=== PATIENT | female | born 1950 | race Caucasian/White ===

== ENCOUNTER 2016-07-24 00:46 | Inpatient (IN) ==
--- NOTE | 2016-07-24 01:58 | Emergency Department Note ---
START Narrative - START START: I examined this patient and my medical decision-making was reviewed with the FILLING ROOM OPERATOR/PA/Advanced Practice Nurse/Resident Physician. I agree with the documented findings, disposition and treatment plan as described except to the extent set forth below. ED attending note: Patient seen with emergency medicine resident Dr. Galdamez. Please see a copy of his note for details of the H&P, evaluation, management and disposition of this patient. We independently had coms-[id number] contact with the patient Briefly: 65-year-old female resident of [facility] facility with dementia presents by EMS for concerns about pneumonia. Patient was Just finished antibiotics today [facility] facility personnel noted some hypoxia in the mid 70s using an oxygen concentrator they got her up to 80s. However after breathing treatment and supplemental medical oxygen EMS got her to light 90s. Vision is poor historian. She is afebrile with stable vital signs. Satisfactory O2 saturation on room air. Patient will repeat labs and chest x-ray here. Disposition pending. Patient stable.
[2016-07-24] MEDS ORDERED: Ipratropium/Albuterol Neb 3 ML IH ONE ×2 (02:47→03:52)
--- NOTE | 2016-07-24 02:48 | Emergency Department Note ---
Disposition Clinical Impression: COPD exacerbation Disposition: Admitted As Inpatient Condition: Good Time of Disposition: 03:03 General Adult HPI - General Chief complaint: ED Shortness of Breath/Dyspnea Stated complaint: short of breath Time Seen by Provider: 07/24/16 01:15 Source: patient, EMS Mode of arrival: EMS Limitations: physical limitation Nursing Notes Reviewed: Yes Vital Signs Reviewed: Yes - History of Present Illness HPI Narrative: 65-year-old female presents to the ER due to concern for pneumonia. Pt Subjective Complaint: Shortness of breath, concern for worsening pneumonia Onset (ago): Just CUT OFF SAW OPERATOR Radiation: non-radiation Pain Scale: 0 Improves with: other (Oxygen) Worsens with: nothing Associated symptoms: Reports: cough (White sputum), shortness of breath. Denies : chest pain, fever/chills, headaches, nausea/vomiting Treatments Prior to Arrival: other (Albuterol treatment) - Related Data Home Medications Medication Instructions Recorded Confirmed Albuterol Sulfate [Albuterol 2 puff IH Q6H PRN 10/11/15 10/11/15 Inhaler] Albuterol Sulfate [Ventolin Hfa] 2 puff IH Q6H PRN 10/11/15 10/11/15 Amlodipine [Norvasc] 5 mg PO DAILY 10/11/15 10/11/15 Aspirin 81 mg PO DAILY 10/11/15 10/11/15 Buspirone HCl [Buspar] 10 mg PO BID 10/11/15 10/11/15 Calcium Carbonate/Vitamin D3 1 each PO DAILY 10/11/15 10/11/15 [Calcium 500-Vit D3 200 Caplet] Carvedilol [Coreg] 6.25 mg PO BIDWM 10/11/15 10/11/15 Docusate [Colace] 200 mg PO QAM PRN 10/11/15 10/11/15 Ferrous Sulfate 324 mg PO DAILY 10/11/15 10/11/15 Gabapentin [Neurontin] 600 mg PO BID 10/11/15 10/11/15 Isosorbide MONOnitrate (24 HR) 60 mg PO QAM 10/11/15 10/11/15 [Imdur] Loperamide HCl [Imodium A-D] 2 mg PO PRN PRN 10/11/15 10/11/15 Losartan Potassium [Cozaar] 100 mg PO DAILY 10/11/15 10/11/15 Mirtazapine [Remeron] 15 mg PO 10/11/15 10/11/15 Multivitamin [One Daily Essential] 1 each PO [facility] 10/11/15 10/11/15 Omeprazole [PriLOSEC] 20 mg PO DAILY 10/11/15 10/11/15 Oxybutynin Chloride [Ditropan Xl] 10 mg PO DAILY 10/11/15 10/11/15 Paroxetine [Paxil] 20 mg PO 10/11/15 10/11/15 Potassium Chloride [Klor-Con] 20 meq PO BID 10/11/15 10/11/15 Promethazine [Phenergan] 25 mg PO PRN PRN 10/11/15 10/11/15 Roflumilast [Daliresp] 500 mcg PO DAILY 10/11/15 10/11/15 Sennosides [Evac-U-Gen] 8.6 mg PO PRN PRN 10/11/15 10/11/15 Simvastatin [Zocor] 10 mg PO 10/11/15 10/11/15 Tiotropium [Spiriva] 18 mcg IH [facility] 10/11/15 10/11/15 Previous Rx's Medication Instructions Recorded HYDROmorphone [Dilaudid] 2 mg PO Q4HR PRN #20 tablet 10/16/15 Hydrocodone/Acetaminophen [[place] 1 tab PO Q8H PRN #20 tablet 10/16/15 5-325 Tablet] Levofloxacin [Levaquin] 500 mg PO DAILY #10 tablet 10/16/15 PredniSONE 10 mg PO DAILY #60 tablet 10/16/15 TraMADol [Ultram] 50 mg PO Q6HR PRN #30 tablet 10/16/15 Allergies Allergy/AdvReac Type Severity Reaction Status Date / Time acetaminophen [From Vicodin] Allergy Hives Verified 07/24/16 00:48 codeine Allergy Nausea Verified 07/24/16 00:48 hydrocodone [From Vicodin] Allergy Hives Verified 07/24/16 00:48 Oxycodone [From Percocet] Allergy Gastrointestinal Verified 07/24/16 00:48 Upset propoxyphene Allergy Gastrointestinal Verified 07/24/16 00:48 [From Darvocet-N] Upset All systems ED: reviewed and negative except as stated. Constitutional: Denies: fever Cardiovascular: Denies: chest pain Respiratory: Reports: cough, dyspnea. Denies: wheezes Gastrointestinal: Denies: abdominal pain, nausea, vomiting Musculoskeletal: Denies: back pain, neck pain Integumentary: Denies: rash Past Medical History - Past Medical History Attestation: Yes The following information was validated with the patient. Source: patient, old records reviewed, nursing notes reviewed Medical history: Reports: aortic aneurysm, CHF, COPD, coronary artery disease, hypertension, osteoporosis, sudden cardiac , syncope, valvular heart disease, other Surgical history: Reports: no surgical history Psychiatric history: Reports: no psych history - Social History Smoking Status: Former smoker Smokeless Tobacco Status: No Alcohol use: Reports: none Drug use: Reports: none Physical Exam - General Limitations: physical limitation General appearance: alert, in no apparent distress - Head Head exam: atraumatic, normocephalic, normal inspection - Eye Eye exam: Present: normal appearance - ENT ENT exam: normal exam - Neck Neck exam: Present: normal inspection - Chest Chest inspection: Present: normal inspection - Respiratory Respiratory exam: Present: wheezes (Bilateral mild wheezing in all lung pizarro.) , prolonged expiratory phase. Absent: respiratory distress, accessory muscle use - Cardiovascular Cardiovascular exam: Present: regular rate, normal rhythm, normal heart sounds - Abdominal Exam Abdominal exam: Present: soft, Non-Tender. Absent: tenderness - Extremities Exam Extremities exam: Present: normal inspection - Expanded Lower Extremity Exam Hip/Pelvis exam: Present: normal inspection Upper leg exam: Present: normal inspection Knee exam: Present: normal inspection Lower leg exam: Present: normal inspection Ankle exam: Present: swelling (1+ pitting edema at the left ankle.) Foot/toe exam: Present: normal inspection - Neurological Exam Neurological exam: Present: alert - Psychiatric Psychiatric exam: Present: normal affect, normal mood - Skin Skin exam: Present: warm, dry, intact, normal color Course Course Narrative: 65-year-old female presents to the ER from a senior care facility with a chief complaint of concern for worsening pneumonia. EMS reports that at the facility the patient had an episode of hypoxia in the high 70s. This was corrected after applying supplemental O2. Patient was given a breathing treatment in route as well. Patient reports that she was recently admitted for a cerebellar aneurysm. At that time she was diagnosed with healthcare associated pneumonia and treated with vancomycin, cefepime and Levaquin as per EMS report. There was concern today that she had worsening pneumonia due to her hypoxia. Patient states she is on 2 L continuous. She has had a cough with white sputum production. She denies fevers, chest pain, diaphoresis, nausea, vomiting, diarrhea. No other complaints. Plan the patient is EKG and chest x-ray. Disposition pending. We will give a DuoNeb treatment here. - Reevaluation(s) Reevaluation #1: Discussed labs and imaging with the patient. Vital Signs Temperature 97.8 F 07/24/16 01:03 Pulse Rate 94 07/24/16 01:03 Respiratory Rate 16 07/24/16 01:03 Blood Pressure 164/90 07/24/16 01:03 O2 Sat by Pulse Oximetry 96 07/24/16 01:03 Temperature 97.8 F 07/24/16 01:03 Pulse Rate 110 07/24/16 04:30 Respiratory Rate 24 07/24/16 04:30 Blood Pressure 171/93 07/24/16 04:30 O2 Sat by Pulse Oximetry 97 07/24/16 04:30 Oxygen Delivery Oxygen Delivery Aerosol Mask Medical Decision Making - [facility] Narrative Medical decision making narrative: 65-year-old female presents to the ER for concern for worsening pneumonia and hypoxia. Her chest x-ray here is unremarkable. She is afebrile. She is requiring increased oxygen supplementation at 4 L currently. Her lab work is unremarkable. She continues to have wheezing with increased work of breathing. Patient will be admitted to the hospital for COPD exacerbation. - Lab Data Lab results reviewed: Yes I reviewed the patient's lab results. Result diagrams: 07/24/16 02:40 07/24/16 02:40 Lab Results 07/24/16 07/24/16 07/24/16 Range/Units 02:40 02:40 02:40 WBC 12.7 H (4.3-11.1) K/mcL RBC 4.61 (3.82-4.97) M/mcL Hgb 13.5 (11.5-15.4) g/dL Hct 43.8 (35.3-44.9) % MCV 95.0 (83.0-100.0) fL MCH 29.3 (28.0-33.3) pg MCHC 30.8 L (31.6-35.5) g/dL RDW 13.8 (11.5-14.5) % Plt Count 194 (140-400) K/mcL MPV 11.9 (9.4-12.4) fL Immature Gran % 0.8 (0-4) % Seg Neutrophils % 91.3 % Lymphocytes % 3.2 % Monocytes % 4.6 % Eosinophils % 0.0 % Basophils % 0.1 % Neutrophils # 11.6 H (1.6-8.9) K/mcL Lymphocytes # 0.4 L (0.6-4.6) K/mcL Monocytes # 0.6 (0.0-1.3) K/mcL Eosinophils # 0.0 (0.0-0.6) K/mcL Basophils # 0.0 (0.0-0.2) K/mcL Nucleated RBCs/100 WBC 0.2 H (0) /100 WBC Sodium 140 (136-145) mEq/L Potassium 4.3 (3.5-4.5) mEq/L Chloride 95 L (98-109) mEq/L Carbon Dioxide 36 H (19-29) mEq/L BUN 41 H (7-20) mg/dL Creatinine 0.75 (0.57-1.11) mg/dL Est GFR ( Amer) > 60 (> 60) Est GFR (Non-Af Amer) > 60 (> 60) BUN/Creatinine Ratio 55 H (6-26) Glucose 149 H (70-99) mg/dL Calculated Osmolality 303 H (280-300) Calcium 9.8 (8.6-10.8) mg/dL Troponin I 0.02 (0-0.03) ng/mL B-Natriuretic Peptide (0-100) pg/mL 07/24/16 Range/Units 02:40 WBC (4.3-11.1) K/mcL RBC (3.82-4.97) M/mcL Hgb (11.5-15.4) g/dL Hct (35.3-44.9) % MCV (83.0-100.0) fL MCH (28.0-33.3) pg MCHC (31.6-35.5) g/dL RDW (11.5-14.5) % Plt Count (140-400) K/mcL MPV (9.4-12.4) fL Immature Gran % (0-4) % Seg Neutrophils % % Lymphocytes % % Monocytes % % Eosinophils % % Basophils % % Neutrophils # (1.6-8.9) K/mcL Lymphocytes # (0.6-4.6) K/mcL Monocytes # (0.0-1.3) K/mcL Eosinophils # (0.0-0.6) K/mcL Basophils # (0.0-0.2) K/mcL Nucleated RBCs/100 WBC (0) /100 WBC Sodium (136-145) mEq/L Potassium (3.5-4.5) mEq/L Chloride (98-109) mEq/L Carbon Dioxide (19-29) mEq/L BUN (7-20) mg/dL Creatinine (0.57-1.11) mg/dL Est GFR ( Amer) (> 60) Est GFR (Non-Af Amer) (> 60) BUN/Creatinine Ratio (6-26) Glucose (70-99) mg/dL Calculated Osmolality (280-300) Calcium (8.6-10.8) mg/dL Troponin I (0-0.03) ng/mL B-Natriuretic Peptide 237 H (0-100) pg/mL - Radiology Data Radiology results reviewed: Yes I reviewed the patient's radiology results. Chest X-Ray 07/24/16 01:06 IMPRESSION: No acute process. D/ / Cecilia Young MD / Cecilia Young MD Interpreting Provider: Cecilia Young MD - EKG Data EKG #1 EKG attestation: Yes I reviewed and interpreted this EKG. EKG results narrative: EKG demonstrates sinus rhythm with PACs. Rate of 91 bpm. Normal axis. [place] interval 133 QRS duration [address] elevations or depressions. No acute ischemic findings. No significant changes from previous EKG dated . S.B.A.R. - S.B.A.R. Situation: Demographics, MOA Background: Presenting Complaint, Relevant PMH, Meds, & Allergies Assessment: Vital Signs, Course and respsone to treatment, Exam Concerns, Patient/Family Expectation, Pertinant Lab Results, Outstanding Labs Recommendation: Barrier(s) to disposition, Recommendation based on pending studies, treatments, or consults Jeniffer Report Given to: Dr. Rena Swift Repor Time: 05:22
[2016-07-24] MEDS ORDERED: methylPREDNISolone 125 MG/2 ML VIAL IVP ONE (03:52)
[2016-07-24 04:02] LABS: Basophils % 0.1 %; Hematocrit 43.8 % (35.3-44.9); Hemoglobin 13.5 g/dL (11.5-15.4); Immature Granulocytes % 0.8 % (0-4); Lymphocytes # 0.4 K/mcL (0.6-4.6); Lymphocytes % 3.2 %; Mean Corpuscular HGB Conc 30.8 g/dL (31.6-35.5); Mean Corpuscular Hemoglobin 29.3 pg (28.0-33.3); Mean Platelet Volume 11.9 fL (9.4-12.4); Monocytes # 0.6 K/mcL (0.0-1.3); Monocytes % 4.6 %; Neutrophils # 11.6 K/mcL (1.6-8.9); Nucleated Red Blood Cells 0.2 /100 WBC (0); Platelet Count 194 K/mcL (140-400); Red Blood Count 4.61 M/mcL (3.82-4.97); Red Cell Distribution Width 13.8 % (11.5-14.5); Segmented Neutrophils % 91.3 %
[2016-07-24 04:09] LABS: BUN/Creatinine Ratio 55 (6-26); Blood Urea Nitrogen 41 mg/dL (7-20); Calcium 9.8 mg/dL (8.6-10.8); Carbon Dioxide 36 mEq/L (19-29); Chloride 95 mEq/L (98-109); Glucose 149 mg/dL (70-99); Osmolality,Calculated 303 (280-300); Potassium 4.3 mEq/L (3.5-4.5); Sodium 140 mEq/L (136-145); eGFR For African Americans > 60 (> 60); eGFR For Non-African Americans > 60 (> 60)
[2016-07-24] MEDS ORDERED: Naloxone 0.4 MG/ML INJ IVP PRN (05:49)
[2016-07-24] MEDS ORDERED: Ibuprofen 400 MG TABLET PO PRN (05:49)
[2016-07-24] MEDS ORDERED: Albuterol 2.5 MG/3 ML NEBULIZER IH PRN ×2 (05:49→11:41)
[2016-07-24] MEDS ORDERED: *HR* Morphine 2 MG/ML SYRINGE IVP PRN (05:49)
[2016-07-24] MEDS ORDERED: Ondansetron 4 MG/2 ML VIAL IVP PRN ×2 (05:49→11:41)
[2016-07-24] MEDS ORDERED: 0.9 % Sodium Chloride 1,000 ML IVC SCH (06:00)
--- NOTE | 2016-07-24 06:03 | Internal Med History&Physical ---
Date of Encounter: 07/24/16 Time of Encounter: 05:57 Assessment and Plan (1) Acute and chronic respiratory failure with hypoxia Current visit: Yes Status: Acute 1. I requested a STAT ABG and placement on BiPap in ER. 2. Will monitor closely on BiPap and, if respiratory status declines, patient will likely need ETT and mechanical ventilation. 3. Aggressive IV steroids, aerosols, oxygen/BiPap support. 4. Will treat with Levaquin empirically. Pt just finished Vancomycin and Zosyn. 5. Check Influenza PCR. 6. Will draw blood cultures -- one peripheral and one from PICC. (2) CAD (coronary artery disease) of artery bypass graft Current visit: No Status: Chronic 1. Will trend troponins and EKG's. 2. No active angina. 3. Resume home meds as appropriate once verified. Qualifiers: [place] vs. transplanted heart: [place] heart Associated angina: without angina Qualified Code(s): I25.810 - Atherosclerosis of coronary artery bypass graft(s) without angina pectoris (3) Hypertension Current visit: No Status: Chronic 1. Continue home meds as appropriate. 2. Monitor BP and adjust accordingly. Qualifiers: Hypertension type: essential hypertension Qualified Code(s): I10 - Essential (primary) hypertension (4) DVT prophylaxis Current visit: Yes Status: Acute 1. Heparin SQ. Internal Medicine - H&P: HPI Chief complaint: SOB; cough; fever Admitted From: Emergency Dept Plans for Post Hospital Care: Transfer Shelter Facility History of present illness: Ms. Dubon is a 65 year old female who presented to the ER this morning with complaints of cough, profound shortness of breath, and fevers. She just finished antibiotics yesterday for healthcare associated pneumonia. She has an indwelling PICC line in her right arm, and she tells me she was being treated at her nursing facility. She states she was coughing, wheezing, and short breath all week but today, suddenly, she had profound shortness of breath, severe wheezing, and subjective fevers. She came to the ER and was treated conservatively with aerosols and steroids and admitted to hospitalist service. Upon my assessment of the patient in the ER, she is having significant conversational dyspnea and is pursed-lip breathing. She has profound shortness of breath and is struggling to breathe. Based upon her clinical respiratory deterioration, I requested the ER obtain an ABG and start her on BiPAP right away. Patient states she has been having some subjective fevers and has had multiple ill contacts at her nursing facility. She denies any vomiting or diarrhea. Appetite and fluid intake have been diminished. She denies chest pain, but she has had significant wheezing, coughing, and shortness of breath. Patient states she has severe COPD and has required intubation and mechanical ventilation several times the past for her COPD flareups. Past Med Surg Social Fam HX - Past Medical History Attestation: Yes The following information was validated with the patient. Source: old records reviewed, nursing notes reviewed (from [facility]) Medical history: aortic aneurysm, CHF, COPD, coronary artery disease, hypertension, osteoporosis, sudden cardiac , syncope, valvular heart disease Psychiatric history: no psych history - Past Surgical History Surgical History: coronary bypass (CABG) - Social History Smoking Status: Former smoker Smokeless Tobacco Status: No Alcohol use: none Drug use: none Current living situation: [facility] Recent Out of Country Travel Within the Last 8 Weeks: No - Family History Mother Living Status: Hx Family Cardiac Disorders: No Hx Family Respiratory Disorders: No Hx Family Cancer: No Hx Family GI Disorders: No Hx Family Neuromuscular Disorders: No Hx Family Neurologic Disorders: Yes (dementia) Hx Family HEENT Disorders: No Hx Family Autoimmune Disorders: No Internal Medicine - H&P: Meds Albuterol Sulfate [Albuterol Inhaler] 2 puff IH Q6H PRN 10/11/15 [History] Albuterol Sulfate [Ventolin Hfa] 2 puff IH Q6H PRN 10/11/15 [History] Amlodipine [Norvasc] 5 mg PO DAILY 10/11/15 [History] Aspirin 81 mg PO DAILY 10/11/15 [History] Buspirone HCl [Buspar] 10 mg PO BID 10/11/15 [History] Calcium Carbonate/Vitamin D3 [Calcium 500-Vit D3 200 Caplet] 1 each PO DAILY [History] Carvedilol [Coreg] 6.25 mg PO BIDWM 10/11/15 [History] Docusate [Colace] 200 mg PO QAM PRN 10/11/15 [History] Ferrous Sulfate 324 mg PO DAILY 10/11/15 [History] Gabapentin [Neurontin] 600 mg PO BID 10/11/15 [History] Isosorbide MONOnitrate (24 HR) [Imdur] 60 mg PO QAM 10/11/15 [History] Loperamide HCl [Imodium A-D] 2 mg PO PRN PRN 10/11/15 [History] Losartan Potassium [Cozaar] 100 mg PO DAILY 10/11/15 [History] Mirtazapine [Remeron] 15 mg PO HS 10/11/15 [History] Multivitamin [One Daily Essential] 1 each PO [facility] 10/11/15 [History] Omeprazole [PriLOSEC] 20 mg PO DAILY 10/11/15 [History] Oxybutynin Chloride [Ditropan Xl] 10 mg PO DAILY 10/11/15 [History] Paroxetine [Paxil] 20 mg PO 10/11/15 [History] Potassium Chloride [Klor-Con] 20 meq PO BID 10/11/15 [History] Promethazine [Phenergan] 25 mg PO PRN PRN 10/11/15 [History] Roflumilast [Daliresp] 500 mcg PO DAILY 10/11/15 [History] Sennosides [Evac-U-Gen] 8.6 mg PO PRN PRN 10/11/15 [History] Simvastatin [Zocor] 10 mg PO HS 10/11/15 [History] Tiotropium [Spiriva] 18 mcg IH [facility] 10/11/15 [History] HYDROmorphone [Dilaudid] 2 mg PO Q4HR PRN #20 tablet 10/16/15 [Rx] Hydrocodone/Acetaminophen [[place] 5-325 Tablet] 1 tab PO Q8H PRN #20 tablet 10/15 [Rx] Levofloxacin [Levaquin] 500 mg PO DAILY #10 tablet 10/16/15 [Rx] PredniSONE 10 mg PO DAILY #60 tablet 10/16/15 [Rx] TraMADol [Ultram] 50 mg PO Q6HR PRN #30 tablet 10/16/15 [Rx] Allergies acetaminophen [From Vicodin] Allergy (Verified 07/24/16 00:48) Hives codeine Allergy (Verified 07/24/16 00:48) Nausea hydrocodone [From Vicodin] Allergy (Verified 07/24/16 00:48) Hives Oxycodone [From Percocet] Allergy (Verified 07/24/16 00:48) Gastrointestinal Upset propoxyphene [From Darvocet-N] Allergy (Verified 07/24/16 00:48) Gastrointestinal Upset - Constitutional Constitutional: fever(s), no chills, no night sweats - EENT Eyes: no blurry vision, no change in vision Ears: no ear pain, no tinnitus Nose, mouth and throat: nasal congestion, sinus pressure, no sore throat - Cardiovascular Cardiovascular ROS IM: dyspnea, dyspnea on exertion, palpitations, no chest pain , no edema, no lightheadedness, no orthopnea - Respiratory Respiratory: cough, dyspnea, dyspnea on exertion, wheezing, chest congestion, no hemoptysis, no excessive phlegm production - Gastrointestinal Gastrointestinal: other (+ appetite loss and depressed fluid intake), no abdominal pain, no diarrhea, no hematemesis, no hematochezia, no nausea, no vomiting - Genitourinary Genitourinary: no dysuria, no flank pain, no hematuria - Musculoskeletal Musculoskeletal ROS IM: no arthralgias, no back pain, no myalgias - Integumentary Integumentary IM: no rash, no jaundice - Neurological Neurological ROS: no dizziness, no focal weakness, no headache(s) - Psychiatric Psychiatric: anxiety, no depression - Endocrine Endocrine IM: no polydipsia, no polyuria - Hematologic/Lymphatic Hematologic/Lymphatic: easy bruising, no lymphadenopathy - Allergic/Immunologic Allergic/Immunologic: wheezing, no GI upset with certain foods - Constitutional Vitals: Temp Pulse Resp BP Pulse Ox 97.8 F 110 24 158/126 97 07/24/16 01:03 07/24/16 04:30 07/24/16 05:41 07/24/16 05:41 07/24/16 04:30 General appearance: Present: cooperative, disheveled, A&O X 2, pleasant, severe distress (respiratory) Exam: pursed lip breathing; conversational dyspnea; accessory muscle use for breathing - Head Head exam: Present: atraumatic, normal inspection - Expanded Head Exam Head exam expanded: Absent: abrasion, contusion, general tenderness - Eye Eye exam: Present: EOMI, normal appearance, PERRL. Absent: scleral icterus Pupils: Present: normal accommodation - ENT ENT exam: Present: mucous membranes dry, normal oropharynx Additional comments: + thrush - Neck Neck exam general surgery: Present: full ROM, supple. Absent: lymphadenopathy, nuchal rigidity, thyromegaly - Respiratory Respiratory exam: Present: accessory muscle use, decreased breath sounds, respiratory distress, wheezes, tachypnea. Absent: chest wall tenderness, rales , stridor - Cardiovascular Cardiovascular exam: Present: +S1, +S2, tachycardia. Absent: diastolic murmur, JVD, systolic murmur - GI/Abdominal GI/Abdominal exam: Present: soft. Absent: hepatomegaly, normal bowel sounds, splenomegaly - Extremities Exam Extremities exam: Present: warm. Absent: calf tenderness, joint swelling, pedal edema, tenderness - Back Exam Back exam: Present: normal inspection. Absent: CVA tenderness (L), CVA tenderness (R) - Neurological Exam Neurological exam: Present: alert, CN II-XII intact, oriented X3, no focal deficits - Psychiatric Psychiatric exam: Present: anxious - Skin Skin exam: Present: dry, warm Internal Med - H&P Results - Labs CBC & Chem 7: 07/24/16 02:40 07/24/16 02:40 - EKG Data -: EKG Interpreted by Myself EKG shows normal: sinus rhythm Rate: tachycardia - EKG Data Prior EKG available for review: no EKG comments: 07/24/16 06:11 Sinus tachycardia with PAC's - Diagnostic Studies Chest x-ray Status: image reviewed by me (negative)
[2016-07-24 06:10] LABS: ABG Base Excess 11.2 mEq/L (-2.0 to 3.0); ABG HCO3 41.8 mEQ/L (21-27); ABG Oxygen Saturation 87 % (95-98); ABG PO2 58 mmHg (85-104); ABG TCO2 44.4 mEq/L (20-26); Blood Gas FiO2 34 %
[2016-07-24 06:11] LABS: ABG PCO2 85 mmHg (35-45)
[2016-07-24] MEDS ORDERED: *HR* Heparin 5,000 UNIT/ML VIAL SQ SCH (07:00)
[2016-07-24] MEDS ORDERED: Ipratropium/Albuterol Neb 3 ML IH SCH (08:00)
[2016-07-24 08:17] LABS: ABG Base Excess 10.8 mEq/L (-2.0 to 3.0); ABG HCO3 41.4 mEQ/L (21-27); ABG Oxygen Saturation 96 % (95-98); ABG PH 7.29 pH Units (7.32-7.45); ABG PO2 92 mmHg (85-104); Blood Gas FiO2 50 %
[2016-07-24 08:19] LABS: ABG PCO2 86 mmHg (35-45)
[2016-07-24] MEDS ORDERED: Levofloxacin 750 MG/150 ML 750 MG/150 ML BAG IVPB SCH (09:00)
[2016-07-24] MEDS ORDERED: Aspirin 81 MG TAB.CHEW PO SCH (09:00)
[2016-07-24] MEDS ORDERED: methylPREDNISolone 125 MG/2 ML VIAL IVP SCH (10:00)
[2016-07-24 10:11] LABS: ABG Base Excess 13.7 mEq/L (-2.0 to 3.0); ABG HCO3 44.7 mEQ/L (21-27); ABG Oxygen Saturation 93 % (95-98); ABG PH 7.29 pH Units (7.32-7.45); ABG PO2 75 mmHg (85-104); ABG TCO2 47.6 mEq/L (20-26)
[2016-07-24 10:13] LABS: ABG PCO2 93 mmHg (35-45)
[2016-07-24 10:14] LABS: Blood Gas FiO2 50 %
[2016-07-24] MEDS ORDERED: Budesonide/Formoterol 160/4.5 MDI IH SCH (10:15)
[2016-07-24] MEDS ORDERED: Vancomycin 1,000 MG in D5% in Water 250 ML IVPB SCH ×2 (11:00→11:41)
[2016-07-24] MEDS ORDERED: Piperacillin/Tazobactam 3.375 GM in D5% in Water (Mini-Bag+) 100 ML IVPB SCH (11:00)
[2016-07-24] MEDS ORDERED: Propofol 500 MG/50 ML INFUS..BTL ONE (11:32)
[2016-07-24] MEDS ORDERED: Oseltamivir Phosphate 30 MG CAPSULE PO SCH (12:15)
[2016-07-24] MEDS: Vancomycin 1,000 MG in D5% in Water 250 ML IVPB SCH (12:22)
[2016-07-24] MEDS ORDERED: *HR* Midazolam HCl 5 MG/5 ML VIAL IVP ONE (12:25)
[2016-07-24] MEDS ORDERED: *HR* Midazolam HCl 2 MG/2 ML VIAL IV ONE (12:25)
[2016-07-24] MEDS ORDERED: *HR* Etomidate 40 MG/20 ML VIAL IVP ONE (12:25)
[2016-07-24] MEDS: Ipratropium/Albuterol Neb 3 ML IH SCH ×3 (12:54→21:01)
[2016-07-24 13:25] LABS: 2009 H1N1 PCR NOT DETECTED (Not Detect); Influenza A PCR Negative (Negative); Influenza B PCR Negative (Negative)
[2016-07-24 14:01] LABS: ABG Base Excess 15.4 mEq/L (-2.0 to 3.0); ABG HCO3 44.5 mEQ/L (21-27); ABG Oxygen Saturation 96 % (95-98); ABG PH 7.37 pH Units (7.32-7.45); ABG PO2 82 mmHg (85-104); ABG TCO2 46.9 mEq/L (20-26)
[2016-07-24 14:03] LABS: ABG PCO2 77 mmHg (35-45); Blood Gas FiO2 45 %
[2016-07-24] MEDS: Piperacillin/Tazobactam 3.375 GM in D5% in Water (Mini-Bag+) 100 ML IVPB SCH ×2 (14:32→19:54)
--- NOTE | 2016-07-24 14:34 | Pulmonology Consult Note ---
<Burt Mota - Last Filed: 07/24/16 17:15> Date of Encounter: 07/24/16 Time of Encounter: 11:50 Assessment and Plan (1) Acute exacerbation of chronic obstructive airways disease Current Visit: No Status: Acute 65-year-old female with history of severe COPD, history of requiring mechanical ventilation presented to [facility] from the custodial after completing antibiotics for healthcare associated pneumonia. Patient had a sudden onset of coughing, wheezing and shortness of breath was treated with steroids and respiratory therapy in the emergency apparent. With failure of improvement of breathing she was placed on BiPAP and admitted to the general medical floor. While on BiPAP her PCO2 continued to rise from 85-93, The patient became more lethargic and with concerns for decompensation she was transferred to the ICU. After arrival in the ICU her BiPAP settings were adjusted to average volume assured pressure support. Repeat blood gas demonstrated improvement with a pH of 7.37, PCO2 77, PO2 82, bicarbonate 44.5. Chest x-ray results reviewed and compared to previous imaging studies without any acute changes. Plan: - Continue ICU monitoring and current BiPAP settings, if the patient continues to decompensation may require endotracheal intubation. - Continue BiPAP wean as tolerated. - Maintain oxygen saturation is between 88 and 93% - With recent treatment for HCAP Currence antibiotics include vancomycin, Zosyn and Levaquin providing broad coverage. - Nasal MRSA swab negative, influenza screen negative - Continue scheduled DuoNeb treatments, Symbicort, when necessary albuterol nebulizer, Solu-Medrol 80 mg IV every 6 hours (2) CAD (coronary artery disease) of artery bypass graft Current Visit: No Status: Chronic Patient has a history of coronary artery disease with previous history of CABG, current home medications include simvastatin 10 mg by mouth at bedtime. Plan: - Restart her home dose simvastatin 10 mg at bedtime. - History of diastolic heart failure plan to restart beta scott and ARB, will hold amlodipine at this time. - Restart aspirin. Qualifiers: [place] vs. transplanted heart: [place] heart Associated angina: without angina Qualified Code(s): I25.810 - Atherosclerosis of coronary artery bypass graft(s) without angina pectoris (3) Hypertension Current Visit: No Status: Chronic Patient has a history of hypertension and is treated with beta scott, ARB and calcium channel scott at home, antihypertensives have been held since admission, with labile blood pressures. Plan: - We will restart losartan and Coreg - Hold amlodipine at this time. - Continue to monitor blood pressures per protocol. Qualifiers: Hypertension type: essential hypertension Qualified Code(s): I10 - Essential (primary) hypertension (4) DVT prophylaxis Current Visit: Yes Status: Acute Subcutaneous heparin at 5000 units every 8 hours. History of Present Illness Consult date: 07/24/16 Requesting physician: Parker Dodson Chief complaint: Acute Respiratory Failure History of present illness: 65-year-old female with significant history of severe COPD, diastolic heart failure, coronary artery disease, CABG, hypertension, osteoporosis, valvular heart disease, aortic aneurysm, was admitted from the emergency department on with increased shortness of breath and a fever. She had just finished IV antibiotics for healthcare associated pneumonia at a custodial and has an indwelling PICC line. She had sudden onset of coughing wheezing and shortness of breath and subjective fevers. She presented to the emergency department she is treating conservatively with bronchodilators and steroids was admitted to the hospital service. She required BiPAP placement to maintain her oxygen saturations greater than 88%. She was admitted to the general medical floor and blood gases were drawn. Original PCO2 is 85 and while on BiPAP and continued to worsen to 93. The patient became lethargic and hard to arouse and was transferred to the ICU for potential intubation. Upon arrival to the ICU she was evaluated and BiPAP settings were adjusted. Follow-up ABG demonstrated a PCO2 of 77 with an improving pH. The patient is coherent, interactive and tolerating the BiPAP at this time. She denies any fevers chills, vision changes , chest pains, dyspnea, chest pressure, abdominal pain, constipation, extremity pain or discomfort. Past Med Surg Social Fam HX - Past Medical History Medical history: aortic aneurysm, CHF, COPD, coronary artery disease, hypertension, osteoporosis, sudden cardiac , syncope, valvular heart disease Psychiatric history: no psych history - Past Surgical History Surgical History: coronary bypass (CABG) - Social History Smoking Status: Former smoker Smokeless Tobacco Status: No Alcohol use: none Drug use: none - Family History Mother Living Status: Hx Family Cardiac Disorders: No Hx Family Respiratory Disorders: No Hx Family Cancer: No Hx Family GI Disorders: No Hx Family Neuromuscular Disorders: No Hx Family Neurologic Disorders: Yes (dementia) Hx Family HEENT Disorders: No Hx Family Autoimmune Disorders: No Medications and Allergies Amlodipine [Norvasc] 5 mg PO DAILY 10/11/15 [History] Aspirin 81 mg PO DAILY 10/11/15 [History] Buspirone HCl [Buspar] 10 mg PO BID 10/11/15 [History] Carvedilol [Coreg] 6.25 mg PO BIDWM 10/11/15 [History] Gabapentin [Neurontin] 600 mg PO TID 10/11/15 [History] Isosorbide MONOnitrate (24 HR) [Imdur] 60 mg PO QAM 10/11/15 [History] Losartan Potassium [Cozaar] 100 mg PO DAILY 10/11/15 [History] Multivitamin [One Daily Essential] 1 each PO QAM 10/11/15 [History] Oxybutynin Chloride [Ditropan Xl] 10 mg PO DAILY 10/11/15 [History] Paroxetine [Paxil] 20 mg PO HS 10/11/15 [History] Roflumilast [Daliresp] 500 mcg PO DAILY 10/11/15 [History] Simvastatin [Zocor] 10 mg PO HS 10/11/15 [History] Tiotropium [Spiriva] 18 mcg IH BID 10/11/15 [History] Benzonatate 100 mg PO TID 07/24/16 [History] Calcium Carbonate/Vitamin D3 [Oyster [place] Calcium-Vit D Tab] 1 each PO DAILY [History] Docusate Sodium [Dok] 200 mg PO DAILY PRN 07/24/16 [History] Ferrous Sulfate [Iron] 325 mg PO DAILY 07/24/16 [History] Fluticasone/Salmeterol [Advair Hfa 230-21 Mcg Inhaler] 2 puff IH BID 07/24/16 [ History] Guaifenesin [Mucinex] 600 mg PO BID 07/24/16 [History] Ipratropium/Albuterol Neb [Duoneb] 3 ml IH Q4H 07/24/16 [History] Levalbuterol [Xopenex INH] 2 puff IH QID PRN 07/24/16 [History] Loperamide [Imodium] 2 mg PO DAILY PRN 07/24/16 [History] MethylPREDNISolone [Solu-MEDROL] 125 mg IV DAILY 07/24/16 [History] Omeprazole [PriLOSEC] 20 mg PO DAILY 07/24/16 [History] Potassium Chloride [K-Tab ER] 20 meq PO BID 07/24/16 [History] Sennosides [Senna] 8.6 mg PO DAILY PRN 07/24/16 [History] Allergies acetaminophen [From Vicodin] Allergy (Verified 07/24/16 10:16) Hives codeine Allergy (Verified 07/24/16 10:16) Nausea hydrocodone [From Vicodin] Allergy (Verified 07/24/16 10:16) Hives Oxycodone [From Percocet] Allergy (Verified 07/24/16 10:16) Gastrointestinal Upset propoxyphene [From Darvocet-N] Allergy (Verified 07/24/16 10:16) Gastrointestinal Upset All Systems: A 10-system review of systems was performed and is negative for pertinent findings except as documented above in the HPI. Physical Examination Vital Signs: Vital Signs, Last 4 Hours Resp Pulse Ox 07/24/16 12:55 21 95 General appearance: no acute distress, alert Eyes: nonicteric ENT: oropharynx moist Neck: supple, no lymphadenopathy, no JVD Effort: mildly labored Inspection: normal Auscultation: bilateral: wheezes Cardiovascular: other (Tachycardia) Gastrointestinal: normoactive bowel sounds, soft, non-tender, non-distended Integumentary: normal Extremities: no cyanosis, no edema, no clubbing, pulses normal Musculoskeletal: no deformities pupils equal and round, CN II-XII normal mood appropriate, affect normal Results - Laboratory Findings CBC and BMP: 07/24/16 02:40 07/24/16 02:40 ABG ABG pH 7.37 pH Units (7.32-7.45) 07/24/16 13:47 ABG pCO2 77 mmHg (35-45) H* 07/24/16 13:47 ABG pO2 82 mmHg (85-104) L 07/24/16 13:47 ABG O2 Saturation 96 % (95-98) 07/24/16 13:47 Abnormal lab findings: Abnormal lab results WBC 12.7 K/mcL (4.3-11.1) H 07/24/16 02:40 MCHC 30.8 g/dL (31.6-35.5) L 07/24/16 02:40 Neutrophils # 11.6 K/mcL (1.6-8.9) H 07/24/16 02:40 Lymphocytes # 0.4 K/mcL (0.6-4.6) L 07/24/16 02:40 Nucleated RBCs/100 WBC 0.2 /100 WBC (0) H 07/24/16 02:40 ABG pCO2 77 mmHg (35-45) H* 07/24/16 13:47 ABG pO2 82 mmHg (85-104) L 07/24/16 13:47 ABG HCO3 44.5 mEQ/L (21-27) H 07/24/16 13:47 ABG Total CO2 46.9 mEq/L (20-26) H 07/24/16 13:47 ABG Base Excess 15.4 mEq/L (-2.0 to 3.0) H 07/24/16 13:47 Chloride 95 mEq/L (98-109) L 07/24/16 02:40 Carbon Dioxide 36 mEq/L (19-29) H 07/24/16 02:40 BUN 41 mg/dL (7-20) H 07/24/16 02:40 BUN/Creatinine Ratio 55 (6-26) H 07/24/16 02:40 Glucose 149 mg/dL (70-99) H 07/24/16 02:40 POC Glucose 176 (58-89) H 07/24/16 11:37 Calculated Osmolality 303 (280-300) H 07/24/16 02:40 B-Natriuretic Peptide 237 pg/mL (0-100) H 07/24/16 02:40 - Clinical Findings Intake & Output: Intake & Output 07/23/16 07/24/16 07/24/16 23:59 07:59 15:59 Intake Total 0 / 0 Balance 0 / 0 Weight 60.1 kg 60.1 kg Consult Discharge Plan - Plan Referrals: [facility] [place],Loc Stafford MD [Non-Partnered Physician] - 07/31/16 2:15 pm <Suzi Pinedo - Last Filed: 07/24/16 20:15> Date of Encounter: 07/24/16 All Systems: A 10-system review of systems was performed and is negative for pertinent findings except as documented above in the HPI. Physical Examination Vital Signs: Vital Signs, Last 4 Hours Pulse Resp BP Pulse Ox 07/24/16 18:00 81 15 140/98 97 07/24/16 17:00 93 22 162/93 96 Results - Laboratory Findings CBC and BMP: 07/24/16 02:40 07/24/16 02:40 ABG ABG pH 7.37 pH Units (7.32-7.45) 07/24/16 13:47 ABG pCO2 77 mmHg (35-45) H* 07/24/16 13:47 ABG pO2 82 mmHg (85-104) L 07/24/16 13:47 ABG O2 Saturation 96 % (95-98) 07/24/16 13:47 Abnormal lab findings: Abnormal lab results WBC 12.7 K/mcL (4.3-11.1) H 07/24/16 02:40 MCHC 30.8 g/dL (31.6-35.5) L 07/24/16 02:40 Neutrophils # 11.6 K/mcL (1.6-8.9) H 07/24/16 02:40 Lymphocytes # 0.4 K/mcL (0.6-4.6) L 07/24/16 02:40 Nucleated RBCs/100 WBC 0.2 /100 WBC (0) H 07/24/16 02:40 ABG pCO2 77 mmHg (35-45) H* 07/24/16 13:47 ABG pO2 82 mmHg (85-104) L 07/24/16 13:47 ABG HCO3 44.5 mEQ/L (21-27) H 07/24/16 13:47 ABG Total CO2 46.9 mEq/L (20-26) H 07/24/16 13:47 ABG Base Excess 15.4 mEq/L (-2.0 to 3.0) H 07/24/16 13:47 Chloride 95 mEq/L (98-109) L 07/24/16 02:40 Carbon Dioxide 36 mEq/L (19-29) H 07/24/16 02:40 BUN 41 mg/dL (7-20) H 07/24/16 02:40 BUN/Creatinine Ratio 55 (6-26) H 07/24/16 02:40 Glucose 149 mg/dL (70-99) H 07/24/16 02:40 POC Glucose 136 (58-89) H 07/24/16 15:10 Calculated Osmolality 303 (280-300) H 07/24/16 02:40 B-Natriuretic Peptide 237 pg/mL (0-100) H 07/24/16 02:40 - Clinical Findings Intake & Output: Intake & Output 07/24/16 07/24/16 07/24/16 07:59 15:59 23:59 Intake Total 250 / 250 715 / 715 Output Total 275 / 275 Balance 250 / 250 440 / 440 Weight 60.1 kg 62 kg - Attending Attestation I examined this patient and my medical decision-making was reviewed with the PARACHUTE SUPERVISOR/PA/Advanced Practice Nurse/Resident Physician. I agree with the documented findings, disposition and treatment plan as described except to the extent set forth below. Patient seen and examined. Labs, radiology, chart personally reviewed. Agree with resident's history and physical, assessment, plan with following comments: IPHONE DEVELOPER: Patient follows commands, Pulmonary: Patient ventilation and oxygenation were worsening and resident called me to assess patient. Patient was transferred to ICU for possible intubation, however I changed her BiPAP setting to AVAPS and her condition has improved after that and with this NIV mode prevented invasive intubation and hoping she will continue to improve. Cardiovascular: stable GI: Nutrition per dietary and GI prophylaxis per routine Heme: DVT prophylaxis per routine ID: Continue antibiotics and plan to de-escalation Renal; urine out put and renal funtion reviewed Endorcine: blood glucose is monitored Lines: all lines checked and no evidence of infections Skin: skin care to prevent pressure ulcers per nursing routine care I spent 35 min of Critical Care time with this patient. It involved decision making of high complexity to assess, manipulate, and support vital organ system failure and/or to prevent further life threatening deterioration of the patient' s condition. The time involved in the performance of separately reportable procedures was not counted toward critical care time.
--- NOTE | 2016-07-24 15:52 | Electrocardiograph Report ---
[address] [address] Test Date: 2016-07-24 Pat Name: Ana Dubon Department: 102 Room: 12 Gender: F Production Manager: : 1950 Requested By: Mikel Hardin Order Number: [id number] Reading MD: Loc Membreno Measurements Intervals [place] Rate: 91 P: -34 RI: 133 QRS: 59 QRSD: 83 T: 48 QT: 319 QTc: 368 Interpretive Statements SINUS RHYTHM WITH OCCASIONAL SUPRAVENTRICULAR PREMATURE COMPLEXES BASELINE ARTIFACT Electronically Signed On 07-24-2016 15:50:10 EST by Loc Membreno
[2016-07-24] MEDS: methylPREDNISolone 125 MG/2 ML VIAL IVP SCH ×2 (16:20→22:23)
[2016-07-24] MEDS: *HR* Heparin 5,000 UNIT/ML VIAL SQ SCH ×2 (16:21→22:23)
--- NOTE | 2016-07-24 16:46 | Event Note ---
<Parker Dodson - Last Filed: 07/24/16 16:38> Date of Encounter: 07/24/16 Time of Encounter: 08:00 Patient seen and evaluated at bedside. She complained of shortness of breath. On physical exam the patient had significant wheezing and rhonchi bilaterally. ABG was performed which showed an acute on chronic respiratory acidosis with a pH of 7.29 and a PCO2 of 86. The patient was placed on BiPAP 12/6 and after approximately an hour and repeat ABG was essentially unchanged. BiPAP settings were then changed to a 18/6 and the patient was transferred to the ICU. Case was discussed with critical care team consult was placed for pulmonology/ critical care. <Harvey Baptiste - Last Filed: 07/24/16 16:51> Date of Encounter: 07/24/16 Pt admitted early for acute hypercarbic resp failure. Continues to decline. Transferred to ICU and critical care consulted.
[2016-07-24] MEDS: *HR* Metoprolol 5 MG/5 ML VIAL IVP SCH (18:09)
[2016-07-24] MEDS: *HR* Morphine 2 MG/ML SYRINGE IVP PRN ×2 (19:55→22:35)
[2016-07-24] MEDS: Budesonide/Formoterol 160/4.5 MDI IH SCH (21:02)
[2016-07-24] MEDS ORDERED: Lacri-Lube 3.5 GM TUBE BOTH EYES PRN (23:17)
--- NOTE | 2016-07-24 23:25 | Event Note ---
Date of Encounter: 07/24/16 Time of Encounter: 23:21 Called to bedside urgently by RN for concerns of severe respiratory distress. Pt was in extreme respiratory distress, pulling off BiPap, gasping for breaths, and exhibiting altered mental status. We decided to intubate urgently at that point. Pt was pre-medicated with Versed and Etomidate, and then she was successfully intubated by RT on second attempt under my direct supervision. Bilateral breath sounds were auscultated. OG placed per my request. Airway secured. Portable CXR and KUB pending.
[2016-07-25] MEDS: Ipratropium/Albuterol Neb 3 ML IH SCH ×7 (00:43→23:54)
[2016-07-25 00:52] LABS: ABG HCO3 45.2 mEQ/L (21-27); ABG Oxygen Saturation 100 % (95-98); ABG PO2 361 mmHg (85-104); ABG TCO2 47.4 mEq/L (20-26)
[2016-07-25 00:55] LABS: Blood Gas FiO2 100 %
[2016-07-25 00:56] LABS: ABG PCO2 73 mmHg (35-45)
[2016-07-25] MEDS: *HR* Metoprolol 5 MG/5 ML VIAL IVP SCH ×5 (01:08→22:51)
[2016-07-25] MEDS: FentaNYL (PF) 1,000 MCG in 0.9 % Sodium Chloride 80 ML IVC SCH ×3 (03:14→21:07)
[2016-07-25] MEDS: Lacri-Lube 3.5 GM TUBE BOTH EYES SCH ×7 (03:15→22:52)
[2016-07-25] MEDS: Piperacillin/Tazobactam 3.375 GM in D5% in Water (Mini-Bag+) 100 ML IVPB SCH ×3 (03:51→20:27)
[2016-07-25] MEDS: methylPREDNISolone 125 MG/2 ML VIAL IVP SCH ×2 (03:52→09:03)
[2016-07-25 04:42] LABS: Basophils % 0.1 %; Hematocrit 37.9 % (35.3-44.9); Immature Granulocytes % 0.5 % (0-4); Lymphocytes # 0.4 K/mcL (0.6-4.6); Mean Corpuscular HGB Conc 31.4 g/dL (31.6-35.5); Mean Corpuscular Hemoglobin 30.1 pg (28.0-33.3); Mean Corpuscular Volume 95.7 fL (83.0-100.0); Mean Platelet Volume 11.8 fL (9.4-12.4); Monocytes # 0.9 K/mcL (0.0-1.3); Monocytes % 7.3 %; Neutrophils # 11.3 K/mcL (1.6-8.9); Platelet Count 154 K/mcL (140-400); Red Blood Count 3.96 M/mcL (3.82-4.97); Red Cell Distribution Width 13.8 % (11.5-14.5); Segmented Neutrophils % 89.1 %
[2016-07-25 04:47] LABS: Hemoglobin 11.9 g/dL (11.5-15.4)
[2016-07-25 04:56] LABS: Alanine Aminotransferase 21 Units/L (0-55); Albumin 2.9 g/dL (3.5-5.0); Albumin/Globulin Ratio 1.2 (1.1-2.2); Alkaline Phosphatase 38 Units/L (38-126); Aspartate Amino Transferase 18 Units/L (5-34); BUN/Creatinine Ratio 45 (6-26); Bilirubin,Total 0.3 mg/dL (0.2-1.2); Blood Urea Nitrogen 38 mg/dL (7-20); Calcium 8.9 mg/dL (8.6-10.8); Carbon Dioxide 38 mEq/L (19-29); Chloride 96 mEq/L (98-109); Globulin 2.4 g/dL (2.4-3.5); Glucose 128 mg/dL (70-99); Magnesium 2.2 mg/dL (1.6-2.6); Osmolality,Calculated 303 (280-300); Potassium 3.6 mEq/L (3.5-4.5); Sodium 141 mEq/L (136-145); Total Protein 5.3 g/dL (6.0-8.3); eGFR For African Americans > 60 (> 60); eGFR For Non-African Americans > 60 (> 60)
[2016-07-25 05:27] LABS: ABG Oxygen Saturation 91 % (95-98); ABG PO2 62 mmHg (85-104); ABG TCO2 46.2 mEq/L (20-26); Blood Gas FiO2 40 %
[2016-07-25 05:29] LABS: ABG PCO2 71 mmHg (35-45)
[2016-07-25] MEDS: Budesonide/Formoterol 160/4.5 MDI IH SCH ×2 (08:05→21:58)
[2016-07-25] MEDS: Aspirin 81 MG TAB.CHEW PO SCH (09:03)
[2016-07-25] MEDS: Chlorhexidine Rinse 15 ML MOUTHWASH MM SCH ×2 (09:03→20:27)
[2016-07-25] MEDS: *HR* Heparin 5,000 UNIT/ML VIAL SQ SCH ×3 (09:03→22:46)
[2016-07-25] MEDS ORDERED: Magnesium Sulfate 2 GM in D5% in Water 100 ML IVPB PRN (10:49)
[2016-07-25] MEDS: Vancomycin 1,000 MG in D5% in Water 250 ML IVPB SCH (11:23)
[2016-07-25] MEDS: Pantoprazole 40 MG VIAL IVP SCH (11:24)
--- NOTE | 2016-07-25 11:45 | Pulmonology Progress Note ---
<Burt Mota - Last Filed: 07/25/16 17:20> Date of Encounter: 07/25/16 Time of Encounter: 09:00 Assessment and Plan (1) Acute exacerbation of chronic obstructive airways disease Current Visit: No Status: Acute 65-year-old female with history of severe COPD, history of requiring mechanical ventilation [facility] completing antibiotics for healthcare associated pneumonia. Patient had a sudden onset of coughing, wheezing and shortness of breath was treated with steroids and respiratory therapy in the emergency apparent. With failure of improvement of breathing she was placed on BiPAP and admitted to the general medical floor. While on BiPAP her PCO2 continued to rise from 85-93, The patient became more lethargic and with concerns for decompensation she was transferred to the ICU. After arrival in the ICU her BiPAP settings were adjusted to average volume assured pressure support. Repeat blood gas demonstrated improvement with a pH of 7.37, PCO2 77, PO2 82, bicarbonate 44.5. Chest x-ray results reviewed and compared to previous imaging studies without any acute changes. 07/25/2016 patient was intubated last evening secondary to decompensation in her respiratory state. She could not tolerate her BiPAP. ABG this morning demonstrated chronic respiratory acidosis with metabolic compensation. She is alert awake and interactive while intubated. If she does not improve tomorrow will likely have to involve palliative care given her frequency of decompensation. Plan: - Continue ICU monitoring and current mechanical vent settings - Maintain oxygen saturation is between 88 and 93% - With recent treatment for HCAP Currence antibiotics include vancomycin, Zosyn and Levaquin providing broad coverage. - Continue scheduled DuoNeb treatments, Symbicort, when necessary albuterol nebulizer, Solu-Medrol 40 mg IV every 6 hours (2) CAD (coronary artery disease) of artery bypass graft Current Visit: No Status: Chronic Patient has a history of coronary artery disease with previous history of CABG, current home medications include simvastatin 10 mg by mouth at bedtime. Plan: - Restart her home dose simvastatin 10 mg at bedtime. - History of diastolic heart failure plan to restart beta scott and ARB, will hold amlodipine at this time. - Continue aspirin. Qualifiers: [place] vs. transplanted heart: [place] heart Associated angina: without angina Qualified Code(s): I25.810 - Atherosclerosis of coronary artery bypass graft(s) without angina pectoris (3) Hypertension Current Visit: No Status: Chronic Patient has a history of hypertension and is treated with beta scott, ARB and calcium channel scott at home, antihypertensives have been held since admission, with labile blood pressures. Plan: - BP coverage with IV beta scott and hydralazine for SBP greater than 160. - Monitor with ICU vitals. Qualifiers: Hypertension type: essential hypertension Qualified Code(s): I10 - Essential (primary) hypertension (4) DVT prophylaxis Current Visit: Yes Status: Acute Subcutaneous heparin at 5000 units every 8 hours. Subjective Principal diagnosis: Acute respiratory failure Interval history: Mrs. Ferrara was seen and evaluated patient bedside this morning. She is alert awake interactive while intubated. She demonstrates she is not in distress and denies any discomfort other than the ET tube at this time. Tolerating endotracheal tube at this time. She signals no other complaints or concerns. Objective PUL Vital signs: Last Vital Signs Temp 98.1 F 07/25/16 07:45 Pulse 68 07/25/16 11:00 Resp 12 07/25/16 11:18 BP 85/60 07/25/16 11:18 Pulse Ox 93 L 07/25/16 11:18 General appearance: no acute distress, alert Eyes: nonicteric ENT: oropharynx moist, other (Endotracheal tube in place.) Neck: supple, no lymphadenopathy, no JVD Effort: other (Correlating with mechanical ventilation) Auscultation: bilateral: clear, wheezes Cardiovascular: irregular rhythm Gastrointestinal: normoactive bowel sounds, soft, non-tender, non-distended Integumentary: normal Extremities: no cyanosis, no edema, no clubbing, pink and warm, pulses normal Musculoskeletal: no deformities pupils equal and round mood appropriate, affect normal Ventilator Settings Ventilator Settings: Ventilator Settings, Last 8 Hours Ventilator Mode VC+ Ventilator Mode VC+ Ventilator Mode VC+ Ventilator Mode VC+ Ventilator Mode VC+ Ventilator Mode VC+ Ventilator Mode VC+ Ventilator Mode VC+ Ventilator Mode VC+ Ventilator Mode VC+ Ventilator Mode VC+ Ventilator Mode VC+ Ventilator Tidal Volume 350 Setting Ventilator Tidal Volume 350 Setting Ventilator Tidal Volume 350 Setting Ventilator Tidal Volume 350 Setting Ventilator Respiratory Rate 12 Setting Ventilator Respiratory Rate 12 Setting Ventilator Respiratory Rate 12 Setting Ventilator Respiratory Rate 12 Setting Ventilator Respiratory Rate 12 Setting Ventilator Respiratory Rate 12 Setting Ventilator Respiratory Rate 12 Setting Ventilator Respiratory Rate 12 Setting Ventilator Respiratory Rate 12 Setting Ventilator Respiratory Rate 12 Setting Ventilator Respiratory Rate 12 Setting Ventilator Respiratory Rate 12 Setting Actual Respiratory Rate 12 Actual Respiratory Rate 12 Actual Respiratory Rate 12 Actual Respiratory Rate 12 Actual Respiratory Rate 12 Actual Respiratory Rate 12 Actual Respiratory Rate 12 Actual Respiratory Rate 12 Actual Respiratory Rate 12 Actual Respiratory Rate 12 Positive End Expiratory 5.0 Pressure Positive End Expiratory 5 Pressure Positive End Expiratory 5 Pressure Positive End Expiratory 5 Pressure Positive End Expiratory 5 Pressure Positive End Expiratory 5 Pressure Positive End Expiratory 5.0 Pressure Positive End Expiratory 5 Pressure Positive End Expiratory 5 Pressure Positive End Expiratory 5 Pressure Positive End Expiratory 5 Pressure Positive End Expiratory 5 Pressure Peak Inspiratory Airway 19 Pressure Peak Inspiratory Airway 19 Pressure Peak Inspiratory Airway 21 Pressure Peak Inspiratory Airway 21 Pressure Peak Inspiratory Airway 21 Pressure Peak Inspiratory Airway 21 Pressure Peak Inspiratory Airway 19 Pressure Peak Inspiratory Airway 21 Pressure Peak Inspiratory Airway 19 Pressure Peak Inspiratory Airway 20 Pressure Results - Laboratory Findings CBC and BMP: 07/25/16 04:07 07/25/16 04:07 ABG ABG pH 7.40 pH Units (7.32-7.45) 07/25/16 05:09 ABG pCO2 71 mmHg (35-45) H* 07/25/16 05:09 ABG pO2 62 mmHg (85-104) L 07/25/16 05:09 ABG O2 Saturation 91 % (95-98) L 07/25/16 05:09 Abnormal lab findings: Abnormal lab results WBC 12.7 K/mcL (4.3-11.1) H 07/25/16 04:07 MCHC 31.4 g/dL (31.6-35.5) L 07/25/16 04:07 Neutrophils # 11.3 K/mcL (1.6-8.9) H 07/25/16 04:07 Lymphocytes # 0.4 K/mcL (0.6-4.6) L 07/25/16 04:07 Nucleated RBCs/100 WBC 0.2 /100 WBC (0) H 07/24/16 02:40 ABG pCO2 71 mmHg (35-45) H* 07/25/16 05:09 ABG pO2 62 mmHg (85-104) L 07/25/16 05:09 ABG HCO3 44.0 mEQ/L (21-27) H 07/25/16 05:09 ABG Total CO2 46.2 mEq/L (20-26) H 07/25/16 05:09 ABG O2 Saturation 91 % (95-98) L 07/25/16 05:09 ABG Base Excess 16.0 mEq/L (-2.0 to 3.0) H 07/25/16 05:09 Chloride 96 mEq/L (98-109) L 07/25/16 04:07 Carbon Dioxide 38 mEq/L (19-29) H 07/25/16 04:07 BUN 38 mg/dL (7-20) H 07/25/16 04:07 BUN/Creatinine Ratio 45 (6-26) H 07/25/16 04:07 Glucose 128 mg/dL (70-99) H 07/25/16 04:07 POC Glucose 142 (58-89) H 07/25/16 11:02 Calculated Osmolality 303 (280-300) H 07/25/16 04:07 B-Natriuretic Peptide 237 pg/mL (0-100) H 07/24/16 02:40 Serum Total Protein 5.3 g/dL (6.0-8.3) L 07/25/16 04:07 Albumin 2.9 g/dL (3.5-5.0) L 07/25/16 04:07 - Clinical Findings Intake & Output: Intake & Output 07/24/16 07/25/16 07/25/16 23:59 07:59 15:59 Intake Total 715 / 715 125 / 125 275 / 275 Output Total 600 / 600 375 / 375 Balance 115 / 115 -250 / -250 275 / 275 Consult Discharge Plan - Plan Referrals: Loc toussaint MD [Non-Partnered Physician] - 07/31/16 2:15 pm <Suzi Pinedo - Last Filed: 07/25/16 20:50> Date of Encounter: 07/25/16 Objective PUL Vital signs: Last Vital Signs Temp 97.7 F 07/25/16 20:32 Pulse 102 07/25/16 18:00 Resp 13 07/25/16 18:00 BP 86/67 07/25/16 18:00 Pulse Ox 94 L 07/25/16 18:00 Ventilator Settings Ventilator Settings: Ventilator Settings, Last 8 Hours Ventilator Mode VC+ Ventilator Mode VC+ Ventilator Mode VC+ Ventilator Mode VC+ Ventilator Mode VC+ Ventilator Mode VC+ Ventilator Mode VC+ Ventilator Mode VC+ Ventilator Mode VC+ Ventilator Tidal Volume 350 Setting Ventilator Tidal Volume 350 Setting Ventilator Tidal Volume 350 Setting Ventilator Tidal Volume 350 Setting Ventilator Tidal Volume 350 Setting Ventilator Tidal Volume 350 Setting Ventilator Tidal Volume 350 Setting Ventilator Tidal Volume 350 Setting Ventilator Tidal Volume 350 Setting Ventilator Respiratory Rate 12 Setting Ventilator Respiratory Rate 12 Setting Ventilator Respiratory Rate 12 Setting Ventilator Respiratory Rate 12 Setting Ventilator Respiratory Rate 12 Setting Ventilator Respiratory Rate 12 Setting Ventilator Respiratory Rate 12 Setting Ventilator Respiratory Rate 12 Setting Ventilator Respiratory Rate 12 Setting Actual Respiratory Rate 12 Actual Respiratory Rate 12 Actual Respiratory Rate 15 Actual Respiratory Rate 12 Actual Respiratory Rate 12 Actual Respiratory Rate 12 Actual Respiratory Rate 12 Actual Respiratory Rate 12 Actual Respiratory Rate 12 Positive End Expiratory 5 Pressure Positive End Expiratory 5 Pressure Positive End Expiratory 5 Pressure Positive End Expiratory 5 Pressure Positive End Expiratory 5 Pressure Positive End Expiratory 5 Pressure Positive End Expiratory 5 Pressure Positive End Expiratory 5 Pressure Positive End Expiratory 5 Pressure Peak Inspiratory Airway 21 Pressure Peak Inspiratory Airway 21 Pressure Peak Inspiratory Airway 21 Pressure Peak Inspiratory Airway 20 Pressure Peak Inspiratory Airway 20 Pressure Peak Inspiratory Airway 21 Pressure Peak Inspiratory Airway 20 Pressure Peak Inspiratory Airway 20 Pressure Peak Inspiratory Airway 23 Pressure Results - Laboratory Findings CBC and BMP: 07/25/16 04:07 07/25/16 04:07 ABG ABG pH 7.40 pH Units (7.32-7.45) 07/25/16 05:09 ABG pCO2 71 mmHg (35-45) H* 07/25/16 05:09 ABG pO2 62 mmHg (85-104) L 07/25/16 05:09 ABG O2 Saturation 91 % (95-98) L 07/25/16 05:09 Abnormal lab findings: Abnormal lab results WBC 12.7 K/mcL (4.3-11.1) H 07/25/16 04:07 MCHC 31.4 g/dL (31.6-35.5) L 07/25/16 04:07 Neutrophils # 11.3 K/mcL (1.6-8.9) H 07/25/16 04:07 Lymphocytes # 0.4 K/mcL (0.6-4.6) L 07/25/16 04:07 Nucleated RBCs/100 WBC 0.2 /100 WBC (0) H 07/24/16 02:40 ABG pCO2 71 mmHg (35-45) H* 07/25/16 05:09 ABG pO2 62 mmHg (85-104) L 07/25/16 05:09 ABG HCO3 44.0 mEQ/L (21-27) H 07/25/16 05:09 ABG Total CO2 46.2 mEq/L (20-26) H 07/25/16 05:09 ABG O2 Saturation 91 % (95-98) L 07/25/16 05:09 ABG Base Excess 16.0 mEq/L (-2.0 to 3.0) H 07/25/16 05:09 Chloride 96 mEq/L (98-109) L 07/25/16 04:07 Carbon Dioxide 38 mEq/L (19-29) H 07/25/16 04:07 BUN 38 mg/dL (7-20) H 07/25/16 04:07 BUN/Creatinine Ratio 45 (6-26) H 07/25/16 04:07 Glucose 128 mg/dL (70-99) H 07/25/16 04:07 POC Glucose 142 (58-89) H 07/25/16 11:02 Calculated Osmolality 303 (280-300) H 07/25/16 04:07 B-Natriuretic Peptide 237 pg/mL (0-100) H 07/24/16 02:40 Serum Total Protein 5.3 g/dL (6.0-8.3) L 07/25/16 04:07 Albumin 2.9 g/dL (3.5-5.0) L 07/25/16 04:07 - Clinical Findings Intake & Output: Intake & Output 07/25/16 07/25/16 07/25/16 07:59 15:59 23:59 Intake Total 125 / 125 625 / 625 Output Total 375 / 375 50 / 50 150 / 150 Balance -250 / -250 575 / 575 -150 / -150 - Attending Attestation I examined this patient and my medical decision-making was reviewed with the MANAGER PE/PA/Advanced Practice Nurse/Resident Physician. I agree with the documented findings, disposition and treatment plan as described except to the extent set forth below. Patient seen and examined. Labs, radiology, chart personally reviewed. Agree with resident's history and physical, assessment, plan with following comments: WIRE COMMUNICATIONS ENGINEER: Patient follows commands, Pulmonary: Acceptable oxygenation and ventilation, however no plan for SBT since she was just recently intubated and still not ready for extubation. I suspect patient might not do good due to her advance lung disease. Will need to check with orthopedic for any intervention needed. Cardiovascular: stable GI: Nutrition per dietary and GI prophylaxis per routine Heme: DVT prophylaxis per routine ID: Continue antibiotics and plan to de-escalation Renal; urine out put and renal funtion reviewed Endorcine: blood glucose is monitored Lines: all lines checked and no evidence of infections Skin: skin care to prevent pressure ulcers per nursing routine care
[2016-07-25] MEDS: 0.9 % Sodium Chloride 1,000 ML IVC SCH (13:57)
[2016-07-25] MEDS: MethylPREDNISolone 40 MG/ML VIAL IVP SCH ×2 (15:31→20:27)
[2016-07-25] MEDS ORDERED: Potassium Chloride Elixir 20 MEQ/15 ML UDC GTUBE PRN (15:39)
[2016-07-25] MEDS: Sennosides/Docusate Sodium TABLET PO SCH (20:27)
[2016-07-26] MEDS: 0.9 % Sodium Chloride 1,000 ML IVC SCH ×2 (03:21→16:05)
[2016-07-26] MEDS: Piperacillin/Tazobactam 3.375 GM in D5% in Water (Mini-Bag+) 100 ML IVPB SCH (03:21)
[2016-07-26] MEDS: MethylPREDNISolone 40 MG/ML VIAL IVP SCH ×4 (03:21→20:17)
[2016-07-26] MEDS: Lacri-Lube 3.5 GM TUBE BOTH EYES SCH ×2 (03:22→08:52)
[2016-07-26] MEDS: *HR* Metoprolol 5 MG/5 ML VIAL IVP SCH ×2 (03:45→12:36)
[2016-07-26] MEDS: Ipratropium/Albuterol Neb 3 ML IH SCH ×5 (04:02→20:45)
[2016-07-26 04:17] LABS: Hematocrit 39.1 % (35.3-44.9); Hemoglobin 12.2 g/dL (11.5-15.4); Immature Granulocytes % 0.6 % (0-4); Lymphocytes # 0.2 K/mcL (0.6-4.6); Lymphocytes % 1.6 %; Mean Corpuscular HGB Conc 31.2 g/dL (31.6-35.5); Mean Corpuscular Hemoglobin 29.3 pg (28.0-33.3); Mean Corpuscular Volume 93.8 fL (83.0-100.0); Mean Platelet Volume 11.7 fL (9.4-12.4); Monocytes # 1.1 K/mcL (0.0-1.3); Monocytes % 7.9 %; Neutrophils # 12.2 K/mcL (1.6-8.9); Nucleated Red Blood Cells 0.2 /100 WBC (0); Platelet Count 172 K/mcL (140-400); Red Blood Count 4.17 M/mcL (3.82-4.97); Red Cell Distribution Width 14.3 % (11.5-14.5); Segmented Neutrophils % 89.9 %
[2016-07-26 04:24] LABS: BUN/Creatinine Ratio 51 (6-26); Blood Urea Nitrogen 46 mg/dL (7-20); Calcium 8.2 mg/dL (8.6-10.8); Carbon Dioxide 31 mEq/L (19-29); Chloride 100 mEq/L (98-109); Glucose 123 mg/dL (70-99); Osmolality,Calculated 301 (280-300); Sodium 139 mEq/L (136-145); eGFR For African Americans > 60 (> 60); eGFR For Non-African Americans > 60 (> 60)
[2016-07-26 05:16] LABS: ABG Base Excess 10.6 mEq/L (-2.0 to 3.0); ABG HCO3 38.4 mEQ/L (21-27); ABG Oxygen Saturation 93 % (95-98); ABG PCO2 68 mmHg (35-45); ABG PH 7.36 pH Units (7.32-7.45); ABG PO2 70 mmHg (85-104); ABG TCO2 40.5 mEq/L (20-26)
[2016-07-26 05:18] LABS: Blood Gas FiO2 40 %
[2016-07-26] MEDS: *HR* Heparin 5,000 UNIT/ML VIAL SQ SCH ×3 (06:21→22:21)
[2016-07-26] MEDS: Budesonide/Formoterol 160/4.5 MDI IH SCH ×2 (08:08→20:46)
[2016-07-26] MEDS ORDERED: Potassium Chloride Elixir 20 MEQ/15 ML UDC GTUBE SCH (09:00)
[2016-07-26] MEDS: Chlorhexidine Rinse 15 ML MOUTHWASH MM SCH (09:02)
[2016-07-26] MEDS: Pantoprazole 40 MG VIAL IVP SCH (09:07)
[2016-07-26] MEDS ORDERED: Aminoglycoside Consult 1 EACH MC ONE (09:33)
[2016-07-26] MEDS ORDERED: Levofloxacin 750 MG/150 ML 750 MG/150 ML BAG IVPB SCH (10:00)
[2016-07-26] MEDS: Levofloxacin 750 MG/150 ML 750 MG/150 ML BAG IVPB SCH (11:13)
[2016-07-26] MEDS: Sennosides/Docusate Sodium TABLET PO SCH ×2 (11:14→19:43)
[2016-07-26] MEDS ORDERED: *HR* LORazepam 0.5 MG TABLET PO ONE (11:25)
[2016-07-26] MEDS: Aspirin 81 MG TAB.CHEW PO SCH (11:28)
[2016-07-26] MEDS ORDERED: *HR* LORazepam 2 MG/ML VIAL IVP ONE (11:30)
[2016-07-26 11:52] LABS: BUN/Creatinine Ratio 52 (6-26); Blood Urea Nitrogen 44 mg/dL (7-20); Calcium 8.6 mg/dL (8.6-10.8); Carbon Dioxide 34 mEq/L (19-29); Chloride 102 mEq/L (98-109); Glucose 110 mg/dL (70-99); Osmolality,Calculated 306 (280-300); Potassium 4.2 mEq/L (3.5-4.5); Sodium 142 mEq/L (136-145); eGFR For African Americans > 60 (> 60); eGFR For Non-African Americans > 60 (> 60)
[2016-07-26 11:56] LABS: Basophils % 0.1 %; Hematocrit 39.8 % (35.3-44.9); Hemoglobin 12.6 g/dL (11.5-15.4); Immature Granulocytes % 0.7 % (0-4); Lymphocytes # 0.3 K/mcL (0.6-4.6); Mean Corpuscular HGB Conc 31.7 g/dL (31.6-35.5); Mean Corpuscular Hemoglobin 30.1 pg (28.0-33.3); Mean Platelet Volume 11.8 fL (9.4-12.4); Monocytes # 1.4 K/mcL (0.0-1.3); Monocytes % 8.8 %; Neutrophils # 14.5 K/mcL (1.6-8.9); Nucleated Red Blood Cells 0.2 /100 WBC (0); Platelet Count 161 K/mcL (140-400); Red Blood Count 4.19 M/mcL (3.82-4.97); Red Cell Distribution Width 14.4 % (11.5-14.5); Segmented Neutrophils % 88.4 %
--- NOTE | 2016-07-26 14:02 | Pulmonology Progress Note ---
<RickieyuniorBurt greene - Last Filed: 07/26/16 14:37> Date of Encounter: 07/26/16 Time of Encounter: 07:30 Assessment and Plan (1) Acute exacerbation of chronic obstructive airways disease Current Visit: No Status: Acute 65-year-old female with history of severe COPD, history of requiring mechanical ventilation presented [facility] after completing antibiotics for healthcare associated pneumonia. Patient had a sudden onset of coughing, wheezing and shortness of breath was treated with steroids and respiratory therapy in the emergency apparent. With failure of improvement of breathing she was placed on BiPAP and admitted to the general medical floor. While on BiPAP her PCO2 continued to rise from 85-93, The patient became more lethargic and with concerns for decompensation she was transferred to the ICU. After arrival in the ICU her BiPAP settings were adjusted to average volume assured pressure support. Repeat blood gas demonstrated improvement with a pH of 7.37, PCO2 77, PO2 82, bicarbonate 44.5. Chest x-ray results reviewed and compared to previous imaging studies without any acute changes. 07/25/2016 patient was intubated last evening secondary to decompensation in her respiratory state. She could not tolerate her BiPAP. ABG this morning demonstrated chronic respiratory acidosis with metabolic compensation. She is alert awake and interactive while intubated. If she does not improve tomorrow will likely have to involve palliative care given her frequency of decompensation. 07/26/2016 patient tolerating CPAP trial plans for extubation. ABG 7.36, PCO2 68, PO2 70, bicarbonate 38.4. Patient has chronic respiratory acidosis, secondary to COPD. Plan: - Continue ICU monitoring - Maintain oxygen saturation is between 88 and 93% - Discontinue Zosyn and vancomycin, continue Levaquin - Continue scheduled DuoNeb treatments, Symbicort, when necessary albuterol nebulizer, Solu-Medrol 40 mg IV every 6 hours (2) CAD (coronary artery disease) of artery bypass graft Current Visit: No Status: Chronic Patient has a history of coronary artery disease with previous history of CABG, current home medications include simvastatin 10 mg by mouth at bedtime. Plan: - Continue her home dose simvastatin 10 mg at bedtime. - Continue amlodipine and Coreg. Restart losartan if blood pressure is stable. - Continue aspirin. Qualifiers: [place] vs. transplanted heart: [place] heart Associated angina: without angina Qualified Code(s): I25.810 - Atherosclerosis of coronary artery bypass graft(s) without angina pectoris (3) Hypertension Current Visit: No Status: Chronic Patient has a history of hypertension and is treated with beta scott, ARB and calcium channel scott at home, antihypertensives have been held since admission, with labile blood pressures. Plan: - Restart amlodipine, Coreg - Monitor vitals. Qualifiers: Hypertension type: essential hypertension Qualified Code(s): I10 - Essential (primary) hypertension (4) DVT prophylaxis Current Visit: Yes Status: Acute Subcutaneous heparin at 5000 units every 8 hours. Subjective Principal diagnosis: Acute respiratory failure Interval history: Mrs. Ferrara was seen and evaluated patient bedside this morning. She is alert awake interactive while intubated. She demonstrates that she is having pain in her left hip which is fractured. She denies any chest pain, chest pressure, shortness of breath abdominal pain. No other questions or concerns. Objective PUL Vital signs: Last Vital Signs Temp 98.2 F 07/26/16 11:00 Pulse 90 07/26/16 12:00 Resp 13 07/26/16 12:09 BP 166/97 07/26/16 12:00 Pulse Ox 97 07/26/16 12:09 General appearance: alert, appears uncomfortable Eyes: nonicteric ENT: oropharynx moist, other (Endotracheal tube in place) Neck: supple Effort: normal Auscultation: bilateral: clear (Correlating with mechanical ventilation) Cardiovascular: regular rate and rhythm Gastrointestinal: normoactive bowel sounds, soft, non-tender, non-distended Integumentary: normal Extremities: no edema Musculoskeletal: other (Left foot is slightly higher than the right. No external rotation to the left leg) pupils equal and round, other (Full extensive neurologic exam unable to be completed due to endotracheal intubation.) affect normal Ventilator Settings Ventilator Settings: Ventilator Settings, Last 8 Hours Ventilator Mode VC+ Ventilator Mode VC+ Ventilator Tidal Volume 350 Setting Ventilator Tidal Volume 350 Setting Ventilator Respiratory Rate 12 Setting Actual Respiratory Rate 12 Positive End Expiratory 5 Pressure Positive End Expiratory 5 Pressure Peak Inspiratory Airway 14 Pressure Results - Laboratory Findings CBC and BMP: 07/26/16 11:20 07/26/16 11:20 ABG ABG pH 7.36 pH Units (7.32-7.45) 07/26/16 05:05 ABG pCO2 68 mmHg (35-45) H 07/26/16 05:05 ABG pO2 70 mmHg (85-104) L 07/26/16 05:05 ABG O2 Saturation 93 % (95-98) L 07/26/16 05:05 Abnormal lab findings: Abnormal lab results WBC 16.4 K/mcL (4.3-11.1) H 07/26/16 11:20 Neutrophils # 14.5 K/mcL (1.6-8.9) H 07/26/16 11:20 Lymphocytes # 0.3 K/mcL (0.6-4.6) L 07/26/16 11:20 Monocytes # 1.4 K/mcL (0.0-1.3) H 07/26/16 11:20 Nucleated RBCs/100 WBC 0.2 /100 WBC (0) H 07/26/16 11:20 ABG pCO2 68 mmHg (35-45) H 07/26/16 05:05 ABG pO2 70 mmHg (85-104) L 07/26/16 05:05 ABG HCO3 38.4 mEQ/L (21-27) H 07/26/16 05:05 ABG Total CO2 40.5 mEq/L (20-26) H 07/26/16 05:05 ABG O2 Saturation 93 % (95-98) L 07/26/16 05:05 ABG Base Excess 10.6 mEq/L (-2.0 to 3.0) H 07/26/16 05:05 Carbon Dioxide 34 mEq/L (19-29) H 07/26/16 11:20 BUN 44 mg/dL (7-20) H 07/26/16 11:20 BUN/Creatinine Ratio 52 (6-26) H 07/26/16 11:20 Glucose 110 mg/dL (70-99) H 07/26/16 11:20 POC Glucose 108 (58-89) H 07/26/16 11:01 Calculated Osmolality 306 (280-300) H 07/26/16 11:20 B-Natriuretic Peptide 237 pg/mL (0-100) H 07/24/16 02:40 Serum Total Protein 5.3 g/dL (6.0-8.3) L 07/25/16 04:07 Albumin 2.9 g/dL (3.5-5.0) L 07/25/16 04:07 - Microbiology Findings Microbiology Findings: Microbiology, Last 48 Hours 07/24/16 09:52 Blood Culture - Preliminary Peripheral Central Cath, Picc No growth. 07/24/16 06:39 Blood Culture - Preliminary Peripheral Venipuncture No growth. 07/24/16 06:33 Blood Culture - Preliminary Peripheral Venipuncture No growth. - Clinical Findings Intake & Output: Intake & Output 07/25/16 07/26/16 07/26/16 23:59 07:59 15:59 Intake Total 200 / 200 1626.5 / 1626.5 6.5 / 6.5 Output Total 150 / 150 125 / 125 275 / 275 Balance 50 / 50 1501.5 / 1501.5 -268.5 / -268.5 Weight 64.138 kg Consult Discharge Plan - Plan Referrals: Loc James MD [Non-Partnered Physician] - 07/31/16 2:15 pm <Suzi Pinedo - Last Filed: 07/26/16 16:58> Date of Encounter: 07/26/16 Objective PUL Vital signs: Last Vital Signs Temp 98.6 F 07/26/16 15:00 Pulse 82 07/26/16 16:02 Resp 16 07/26/16 16:32 BP 141/89 07/26/16 16:00 Pulse Ox 99 07/26/16 16:32 Results - Laboratory Findings CBC and BMP: 07/26/16 11:20 07/26/16 11:20 ABG ABG pH 7.36 pH Units (7.32-7.45) 07/26/16 05:05 ABG pCO2 68 mmHg (35-45) H 07/26/16 05:05 ABG pO2 70 mmHg (85-104) L 07/26/16 05:05 ABG O2 Saturation 93 % (95-98) L 07/26/16 05:05 Abnormal lab findings: Abnormal lab results WBC 16.4 K/mcL (4.3-11.1) H 07/26/16 11:20 Neutrophils # 14.5 K/mcL (1.6-8.9) H 07/26/16 11:20 Lymphocytes # 0.3 K/mcL (0.6-4.6) L 07/26/16 11:20 Monocytes # 1.4 K/mcL (0.0-1.3) H 07/26/16 11:20 Nucleated RBCs/100 WBC 0.2 /100 WBC (0) H 07/26/16 11:20 ABG pCO2 68 mmHg (35-45) H 07/26/16 05:05 ABG pO2 70 mmHg (85-104) L 07/26/16 05:05 ABG HCO3 38.4 mEQ/L (21-27) H 07/26/16 05:05 ABG Total CO2 40.5 mEq/L (20-26) H 07/26/16 05:05 ABG O2 Saturation 93 % (95-98) L 07/26/16 05:05 ABG Base Excess 10.6 mEq/L (-2.0 to 3.0) H 07/26/16 05:05 Carbon Dioxide 34 mEq/L (19-29) H 07/26/16 11:20 BUN 44 mg/dL (7-20) H 07/26/16 11:20 BUN/Creatinine Ratio 52 (6-26) H 07/26/16 11:20 Glucose 110 mg/dL (70-99) H 07/26/16 11:20 POC Glucose 108 (58-89) H 07/26/16 11:01 Calculated Osmolality 306 (280-300) H 07/26/16 11:20 B-Natriuretic Peptide 237 pg/mL (0-100) H 07/24/16 02:40 Serum Total Protein 5.3 g/dL (6.0-8.3) L 07/25/16 04:07 Albumin 2.9 g/dL (3.5-5.0) L 07/25/16 04:07 - Microbiology Findings Microbiology Findings: Microbiology, Last 48 Hours 07/24/16 09:52 Blood Culture - Preliminary Peripheral Central Cath, Picc No growth. 07/24/16 06:39 Blood Culture - Preliminary Peripheral Venipuncture No growth. 07/24/16 06:33 Blood Culture - Preliminary Peripheral Venipuncture No growth. - Clinical Findings Intake & Output: Intake & Output 07/26/16 07/26/16 07/26/16 07:59 15:59 23:59 Intake Total 1626.5 / 1626.5 6.5 / 6.5 1000 / 1000 Output Total 125 / 125 475 / 475 Balance 1501.5 / 1501.5 -468.5 / -468.5 1000 / 1000 Weight 64.138 kg - Attending Attestation I examined this patient and my medical decision-making was reviewed with the MERCANTILE REPORTER/PA/Advanced Practice Nurse/Resident Physician. I agree with the documented findings, disposition and treatment plan as described except to the extent set forth below. Patient seen and examined. Labs, radiology, chart personally reviewed. Agree with resident's history and physical, assessment, plan with following comments: ARABIC TRANSLATOR: Patient follows commands, Pulmonary: Acceptable oxygenation and ventilation and extubated successfully. NIV as needed. Cardiovascular: stable GI: Nutrition per dietary and GI prophylaxis per routine Heme: DVT prophylaxis per routine ID: Continue antibiotics and plan to de-escalation Renal; urine out put and renal funtion reviewed Endorcine: blood glucose is monitored Lines: all lines checked and no evidence of infections Skin: skin care to prevent pressure ulcers per nursing routine care
[2016-07-26] MEDS: amLODIPine 5 MG TABLET PO SCH (14:47)
[2016-07-26] MEDS: *HR* Morphine 2 MG/ML SYRINGE IVP PRN (20:41)
[2016-07-27] MEDS: Ipratropium/Albuterol Neb 3 ML IH SCH ×6 (00:01→21:17)
[2016-07-27] MEDS: MethylPREDNISolone 40 MG/ML VIAL IVP SCH ×4 (03:34→21:20)
[2016-07-27] MEDS: 0.9 % Sodium Chloride 1,000 ML IVC SCH (03:35)
[2016-07-27 04:23] LABS: Hemoglobin 12.5 g/dL (11.5-15.4); Mean Corpuscular HGB Conc 31.3 g/dL (31.6-35.5); Mean Corpuscular Volume 96.2 fL (83.0-100.0); Platelet Count 149 K/mcL (140-400); Red Blood Count 4.16 M/mcL (3.82-4.97); Red Cell Distribution Width 14.5 % (11.5-14.5)
[2016-07-27 04:54] LABS: Alanine Aminotransferase 23 Units/L (0-55); Albumin 2.9 g/dL (3.5-5.0); Alkaline Phosphatase 38 Units/L (38-126); Aspartate Amino Transferase 25 Units/L (5-34); BUN/Creatinine Ratio 48 (6-26); Bilirubin,Total 0.3 mg/dL (0.2-1.2); Calcium 8.4 mg/dL (8.6-10.8); Carbon Dioxide 31 mEq/L (19-29); Chloride 102 mEq/L (98-109); Globulin 2.9 g/dL (2.4-3.5); Glucose 84 mg/dL (70-99); Osmolality,Calculated 301 (280-300); Potassium 3.7 mEq/L (3.5-4.5); Sodium 143 mEq/L (136-145); Total Protein 5.8 g/dL (6.0-8.3); eGFR For African Americans > 60 (> 60); eGFR For Non-African Americans > 60 (> 60)
[2016-07-27 04:55] LABS: Blood Urea Nitrogen 30 mg/dL (7-20)
[2016-07-27] MEDS: *HR* Morphine 2 MG/ML SYRINGE IVP PRN (05:12)
[2016-07-27] MEDS: *HR* Heparin 5,000 UNIT/ML VIAL SQ SCH ×3 (06:06→21:20)
[2016-07-27] MEDS: Aspirin 81 MG TAB.CHEW PO SCH (08:31)
[2016-07-27] MEDS: amLODIPine 5 MG TABLET PO SCH (08:31)
[2016-07-27] MEDS: Sennosides/Docusate Sodium TABLET PO SCH ×2 (08:31→21:21)
[2016-07-27] MEDS: Budesonide/Formoterol 160/4.5 MDI IH SCH ×2 (08:36→21:17)
[2016-07-27] MEDS ORDERED: *HR* LORazepam 2 MG/ML VIAL IVP ONE ×2 (08:56→12:24)
[2016-07-27] MEDS: Pantoprazole 40 MG VIAL IVP SCH (09:04)
--- NOTE | 2016-07-27 11:34 | Pulmonology Progress Note ---
<Burt Mota - Last Filed: 07/27/16 11:32> Date of Encounter: 07/27/16 Time of Encounter: 08:00 Assessment and Plan (1) Acute exacerbation of chronic obstructive airways disease Current Visit: No Status: Acute 65-year-old female with history of severe COPD, history of requiring mechanical ventilation [facility] after completing antibiotics for healthcare associated pneumonia. Patient had a sudden onset of coughing, wheezing and shortness of breath was treated with steroids and respiratory therapy in the emergency apparent. With failure of improvement of breathing she was placed on BiPAP and admitted to the general medical floor. While on BiPAP her PCO2 continued to rise from 85-93, The patient became more lethargic and with concerns for decompensation she was transferred to the ICU. After arrival in the ICU her BiPAP settings were adjusted to average volume assured pressure support. Repeat blood gas demonstrated improvement with a pH of 7.37, PCO2 77, PO2 82, bicarbonate 44.5. Chest x-ray results reviewed and compared to previous imaging studies without any acute changes. 07/25/2016 patient was intubated last evening secondary to decompensation in her respiratory state. She could not tolerate her BiPAP. ABG this morning demonstrated chronic respiratory acidosis with metabolic compensation. She is alert awake and interactive while intubated. If she does not improve tomorrow will likely have to involve palliative care given her frequency of decompensation. 07/26/2016 patient tolerating CPAP trial plans for extubation. ABG 7.36, PCO2 68, PO2 70, bicarbonate 38.4. Patient has chronic respiratory acidosis, secondary to COPD. 07/27/2016 Patient tolerating high flow oxygen. Alert and interactive. Continue Levaquin. No acute distress. Plan: - Continue ICU monitoring - Maintain oxygen saturation is between 88 and 93% - continue Levaquin - Continue scheduled DuoNeb treatments, Symbicort, when necessary albuterol nebulizer, Solu-Medrol 40 mg IV every 6 hours (2) CAD (coronary artery disease) of artery bypass graft Current Visit: No Status: Chronic Patient has a history of coronary artery disease with previous history of CABG, current home medications include simvastatin 10 mg by mouth at bedtime. Plan: - Continue her home dose simvastatin 10 mg at bedtime. - Continue amlodipine and Coreg. Restart losartan if blood pressure is stable. - Continue aspirin. Qualifiers: [place] vs. transplanted heart: [place] heart Associated angina: without angina Qualified Code(s): I25.810 - Atherosclerosis of coronary artery bypass graft(s) without angina pectoris (3) Hypertension Current Visit: No Status: Chronic Patient has a history of hypertension and is treated with beta scott, ARB and calcium channel scott at home, antihypertensives have been held since admission, with labile blood pressures. Plan: - Restart amlodipine, Coreg - Monitor vitals. Qualifiers: Hypertension type: essential hypertension Qualified Code(s): I10 - Essential (primary) hypertension (4) DVT prophylaxis Current Visit: Yes Status: Acute Subcutaneous heparin at 5000 units every 8 hours. Subjective Principal diagnosis: Acute respiratory failure Interval history: Mrs. Ferrara was seen and evaluated patient bedside this morning. She is alert awake alert and denies any discomfort. She wishes to eat but is not sceptical about completing a bedside swallow evaluation. She denies BM. She denies CP, chest pressure, palpitations, abdominal pain. No further questions at this time. Objective PUL Vital signs: Last Vital Signs Temp 98.0 F 07/27/16 07:45 Pulse 104 07/27/16 07:36 Resp 20 07/27/16 07:00 BP 173/90 07/27/16 07:00 Pulse Ox 96 07/27/16 07:00 General appearance: no acute distress Eyes: nonicteric ENT: oropharynx moist Neck: supple, other (Trachea midline) Effort: normal (6L high flow oxygen) Auscultation: bilateral: wheezes Cardiovascular: regular rate and rhythm Gastrointestinal: normoactive bowel sounds, soft, non-tender, non-distended Integumentary: normal Extremities: no cyanosis, no edema, no clubbing Musculoskeletal: other (left leg shorter than right. no external rotation or edema.) Results - Laboratory Findings CBC and BMP: 07/27/16 03:38 07/27/16 03:38 ABG ABG pH 7.36 pH Units (7.32-7.45) 07/26/16 05:05 ABG pCO2 68 mmHg (35-45) H 07/26/16 05:05 ABG pO2 70 mmHg (85-104) L 07/26/16 05:05 ABG O2 Saturation 93 % (95-98) L 07/26/16 05:05 Abnormal lab findings: Abnormal lab results WBC 17.2 K/mcL (4.3-11.1) H 07/27/16 03:38 MCHC 31.3 g/dL (31.6-35.5) L 07/27/16 03:38 Neutrophils # 14.5 K/mcL (1.6-8.9) H 07/26/16 11:20 Lymphocytes # 0.3 K/mcL (0.6-4.6) L 07/26/16 11:20 Monocytes # 1.4 K/mcL (0.0-1.3) H 07/26/16 11:20 Nucleated RBCs/100 WBC 0.2 /100 WBC (0) H 07/26/16 11:20 ABG pCO2 68 mmHg (35-45) H 07/26/16 05:05 ABG pO2 70 mmHg (85-104) L 07/26/16 05:05 ABG HCO3 38.4 mEQ/L (21-27) H 07/26/16 05:05 ABG Total CO2 40.5 mEq/L (20-26) H 07/26/16 05:05 ABG O2 Saturation 93 % (95-98) L 07/26/16 05:05 ABG Base Excess 10.6 mEq/L (-2.0 to 3.0) H 07/26/16 05:05 Carbon Dioxide 31 mEq/L (19-29) H 07/27/16 03:38 BUN 30 mg/dL (7-20) H D 07/27/16 03:38 BUN/Creatinine Ratio 48 (6-26) H 07/27/16 03:38 POC Glucose 92 (58-89) H 07/27/16 00:27 Calculated Osmolality 301 (280-300) H 07/27/16 03:38 Calcium 8.4 mg/dL (8.6-10.8) L 07/27/16 03:38 B-Natriuretic Peptide 237 pg/mL (0-100) H 07/24/16 02:40 Serum Total Protein 5.8 g/dL (6.0-8.3) L 07/27/16 03:38 Albumin 2.9 g/dL (3.5-5.0) L 07/27/16 03:38 Albumin/Globulin Ratio 1.0 (1.1-2.2) L 07/27/16 03:38 - Microbiology Findings Microbiology Findings: Microbiology, Last 48 Hours 07/24/16 09:52 Blood Culture - Preliminary Peripheral Central Cath, Picc No growth. 07/24/16 06:39 Blood Culture - Preliminary Peripheral Venipuncture No growth. 07/24/16 06:33 Blood Culture - Preliminary Peripheral Venipuncture No growth. - Clinical Findings Intake & Output: Intake & Output 07/26/16 07/27/16 07/27/16 23:59 07:59 15:59 Intake Total 1000 / 1000 900 / 900 Output Total 550 / 550 825 / 825 Balance 450 / 450 75 / 75 Weight 63.548 kg Consult Discharge Plan - Plan Referrals: [facility]saint MD [Non-Partnered Physician] - 07/31/16 2:15 pm <Suzi Pinedo - Last Filed: 07/27/16 15:49> Date of Encounter: 07/27/16 Objective PUL Vital signs: Last Vital Signs Temp 98.0 F 07/27/16 07:45 Pulse 104 07/27/16 15:10 Resp 18 07/27/16 12:00 BP 171/109 07/27/16 12:00 Pulse Ox 98 07/27/16 12:00 Results - Laboratory Findings CBC and BMP: 07/27/16 03:38 07/27/16 03:38 ABG ABG pH 7.36 pH Units (7.32-7.45) 07/26/16 05:05 ABG pCO2 68 mmHg (35-45) H 07/26/16 05:05 ABG pO2 70 mmHg (85-104) L 07/26/16 05:05 ABG O2 Saturation 93 % (95-98) L 07/26/16 05:05 Abnormal lab findings: Abnormal lab results WBC 17.2 K/mcL (4.3-11.1) H 07/27/16 03:38 MCHC 31.3 g/dL (31.6-35.5) L 07/27/16 03:38 Neutrophils # 14.5 K/mcL (1.6-8.9) H 07/26/16 11:20 Lymphocytes # 0.3 K/mcL (0.6-4.6) L 07/26/16 11:20 Monocytes # 1.4 K/mcL (0.0-1.3) H 07/26/16 11:20 Nucleated RBCs/100 WBC 0.2 /100 WBC (0) H 07/26/16 11:20 ABG pCO2 68 mmHg (35-45) H 07/26/16 05:05 ABG pO2 70 mmHg (85-104) L 07/26/16 05:05 ABG HCO3 38.4 mEQ/L (21-27) H 07/26/16 05:05 ABG Total CO2 40.5 mEq/L (20-26) H 07/26/16 05:05 ABG O2 Saturation 93 % (95-98) L 07/26/16 05:05 ABG Base Excess 10.6 mEq/L (-2.0 to 3.0) H 07/26/16 05:05 Carbon Dioxide 31 mEq/L (19-29) H 07/27/16 03:38 BUN 30 mg/dL (7-20) H D 07/27/16 03:38 BUN/Creatinine Ratio 48 (6-26) H 07/27/16 03:38 POC Glucose 92 (58-89) H 07/27/16 00:27 Calculated Osmolality 301 (280-300) H 07/27/16 03:38 Calcium 8.4 mg/dL (8.6-10.8) L 07/27/16 03:38 B-Natriuretic Peptide 237 pg/mL (0-100) H 07/24/16 02:40 Serum Total Protein 5.8 g/dL (6.0-8.3) L 07/27/16 03:38 Albumin 2.9 g/dL (3.5-5.0) L 07/27/16 03:38 Albumin/Globulin Ratio 1.0 (1.1-2.2) L 07/27/16 03:38 - Microbiology Findings Microbiology Findings: Microbiology, Last 48 Hours 07/24/16 09:52 Blood Culture - Preliminary Peripheral Central Cath, Picc No growth. 07/24/16 06:39 Blood Culture - Preliminary Peripheral Venipuncture No growth. 07/24/16 06:33 Blood Culture - Preliminary Peripheral Venipuncture No growth. - Clinical Findings Intake & Output: Intake & Output 07/26/16 07/27/16 07/27/16 23:59 07:59 15:59 Intake Total 1000 / 1000 900 / 900 500 / 500 Output Total 550 / 550 825 / 825 Balance 450 / 450 75 / 75 500 / 500 Weight 63.548 kg - Attending Attestation I examined this patient and my medical decision-making was reviewed with the [employer]ALL M[employer]ER/PA/Advanced Practice Nurse/Resident Physician. I agree with the documented findings, disposition and treatment plan as described except to the extent set forth below. Patient seen and examined. Labs, radiology, chart personally reviewed. Agree with resident's history and physical, assessment, plan with following comments: PAINTER TOUCH UP: Patient follows commands, Pulmonary: Acceptable oxygenation and ventilation. NIV at night and PRN during daytime Cardiovascular: hypertension related to anxiety and need to resume her home medications GI: Nutrition per dietary and GI prophylaxis per routine Heme: DVT prophylaxis per routine ID: Continue antibiotics and plan to de-escalation Renal; urine out put and renal funtion reviewed Endorcine: blood glucose is monitored Lines: all lines checked and no evidence of infections Skin: skin care to prevent pressure ulcers per nursing routine care Follow up with orth
[2016-07-27] MEDS ORDERED: Ondansetron 4 MG/2 ML VIAL IVP PRN (12:24)
[2016-07-27] MEDS ORDERED: Magnesium Sulfate 2 GM in D5% in Water 100 ML IVPB PRN (12:24)
[2016-07-27] MEDS ORDERED: *HR* Morphine 2 MG/ML SYRINGE IVP PRN (12:24)
[2016-07-27] MEDS ORDERED: Albuterol 2.5 MG/3 ML NEBULIZER IH PRN (12:24)
[2016-07-27] MEDS ORDERED: Potassium Chloride Elixir 20 MEQ/15 ML UDC GTUBE PRN (12:24)
[2016-07-27] MEDS: *HR* Metoprolol 5 MG/5 ML VIAL IVP SCH ×2 (17:44→23:57)
[2016-07-28] MEDS: Ipratropium/Albuterol Neb 3 ML IH SCH ×7 (00:23→23:01)
[2016-07-28 03:26] LABS: Basophils % 0.2 %; Hematocrit 40.2 % (35.3-44.9); Hemoglobin 12.5 g/dL (11.5-15.4); Immature Granulocytes % 1.2 % (0-4); Lymphocytes # 0.4 K/mcL (0.6-4.6); Lymphocytes % 2.4 %; Mean Corpuscular HGB Conc 31.1 g/dL (31.6-35.5); Mean Corpuscular Hemoglobin 29.8 pg (28.0-33.3); Mean Corpuscular Volume 95.9 fL (83.0-100.0); Mean Platelet Volume 12.1 fL (9.4-12.4); Monocytes % 5.9 %; Neutrophils # 15.3 K/mcL (1.6-8.9); Nucleated Red Blood Cells 0.2 /100 WBC (0); Platelet Count 140 K/mcL (140-400); Red Blood Count 4.19 M/mcL (3.82-4.97); Red Cell Distribution Width 14.8 % (11.5-14.5); Segmented Neutrophils % 90.3 %
[2016-07-28 03:38] LABS: BUN/Creatinine Ratio 42 (6-26); Blood Urea Nitrogen 25 mg/dL (7-20); Calcium 8.5 mg/dL (8.6-10.8); Carbon Dioxide 34 mEq/L (19-29); Chloride 100 mEq/L (98-109); Glucose 139 mg/dL (70-99); Osmolality,Calculated 305 (280-300); Potassium 3.8 mEq/L (3.5-4.5); Sodium 144 mEq/L (136-145); eGFR For African Americans > 60 (> 60); eGFR For Non-African Americans > 60 (> 60)
[2016-07-28] MEDS: MethylPREDNISolone 40 MG/ML VIAL IVP SCH ×4 (03:42→18:15)
[2016-07-28] MEDS: *HR* Heparin 5,000 UNIT/ML VIAL SQ SCH ×3 (05:22→21:00)
[2016-07-28] MEDS: *HR* Metoprolol 5 MG/5 ML VIAL IVP SCH ×3 (05:23→18:17)
[2016-07-28] MEDS: Levofloxacin 750 MG/150 ML 750 MG/150 ML BAG IVPB SCH ×2 (07:37→11:34)
[2016-07-28] MEDS: Sennosides/Docusate Sodium TABLET PO SCH ×2 (08:30→20:43)
[2016-07-28] MEDS: Pantoprazole 40 MG VIAL IVP SCH (08:30)
[2016-07-28] MEDS: Aspirin 81 MG TAB.CHEW PO SCH (08:30)
[2016-07-28] MEDS ORDERED: amLODIPine 5 MG TABLET PO SCH (09:00)
[2016-07-28] MEDS: Budesonide/Formoterol 160/4.5 MDI IH SCH ×2 (11:09→20:00)
--- NOTE | 2016-07-28 14:18 | Internal Med Progress Note ---
Date of Encounter: 07/28/16 Time of Encounter: 14:14 - Assessment and plan (1) Acute and chronic respiratory failure with hypoxia Current Visit: Yes Status: Acute Assessment and plan: s/p extubation and has been transferred to the floors started desating on 4l, exam shows b/l bibasilar crpetns CXR shows CHF with pulmonary edema. will give lasix 40 mg once and continue 40 twice a day. We will also order echo, last echo was done last year on June which showed normal LVEF with moderate diastolic dysfunction. keep on BIPAP for now. will continue the Levaquin - Continue scheduled DuoNeb treatments, Symbicort, when necessary albuterol nebulizer,steroids. (2) CAD (coronary artery disease) of artery bypass graft Current Visit: No Status: Chronic Assessment and plan: Patient has a history of coronary artery disease with previous history of CABG, current home medications include simvastatin 10 mg by mouth at bedtime. Plan: - Continue her home dose simvastatin 10 mg at bedtime. - Continue amlodipine and Coreg. will restart losartan 100 mg daily today. - Continue aspirin. Qualifiers: [place] vs. transplanted heart: [place] heart Associated angina: without angina Qualified Code(s): I25.810 - Atherosclerosis of coronary artery bypass graft(s) without angina pectoris (3) Hypertension Current Visit: No Status: Chronic Assessment and plan: will start losartan. monitor BP. Qualifiers: Hypertension type: essential hypertension Qualified Code(s): I10 - Essential (primary) hypertension (4) CHF (congestive heart failure) Current Visit: Yes Status: Acute Assessment and plan: diastolic CHF< last ECHO 07/13 showed moderate DD. started lasix, bid. will order ECHO, keep n BIPAP now. will order BNP. Qualifiers: Congestive heart failure type: diastolic Congestive heart failure chronicity: acute on chronic Qualified Code(s): I50.33 - Acute on chronic diastolic (congestive) heart failure - Time Spent With Patient 25 - 35 minutes - Subjective Interval history: 65 y/o admitted for acute respiratory failure secondary to COPD exacerbation, needed intubation and status post extubation on 07/26/16, Transferred from ICU 07/27, seen at the bedside in the morning. appear in mild respiratory distress during the day, denies any chest pain .. SHe was tolerating nasal cannula at 4 L and saturating 95% in the morning, however desating now at 89 n 4 l. - Constitutional Vitals: Temp Pulse Resp BP Pulse Ox 97.6 F 84 18 143/79 94 L 07/28/16 12:04 07/28/16 12:04 07/28/16 12:04 07/28/16 12:04 07/28/16 12:04 General appearance: Present: cooperative, disheveled, A&O X 2, pleasant, severe distress (respiratory) Exam: Eyes: nonicteric ENT: oropharynx moist Neck: supple, other (Trachea midline) Auscultation: bilateral: decreased breath sounds with bibasilar creptns, no wheezing Cardiovascular: regular rate and rhythm Gastrointestinal: normoactive bowel sounds, soft, non-tender, non-distended Integumentary: normal Extremities: no cyanosis, no edema, no clubbing Internal Medicine: Result - Labs CBC & Chem 7: 07/28/16 03:00 07/28/16 03:00 Labs: Short CBC 07/28/16 Range/Units 03:00 WBC 16.9 H (4.3-11.1) K/mcL Hgb 12.5 (11.5-15.4) g/dL Hct 40.2 (35.3-44.9) % Plt Count 140 (140-400) K/mcL Neutrophils # 15.3 H (1.6-8.9) K/mcL BMP 07/28/16 03:00 Sodium 144 Potassium 3.8 Chloride 100 Carbon Dioxide 34 H BUN 25 H Creatinine 0.60 Glucose 139 H Calcium 8.5 L - ABG Interpretation ABG results: ABG ABG pH 7.36 pH Units (7.32-7.45) 07/26/16 05:05 ABG pCO2 68 mmHg (35-45) H 07/26/16 05:05 ABG pO2 70 mmHg (85-104) L 07/26/16 05:05 ABG O2 Saturation 93 % (95-98) L 07/26/16 05:05 - Impressions Impressions Videofluoroscopic Swallow 07/27/16 08:23 IMPRESSION: Modified barium swallow as discussed above. Please see separate speech pathology report for full discussion of findings and recommendations. D/ / Mike Chang MD / Mike Chang MD Interpreting Provider: Mike Chang MD Consult Discharge Plan - Plan Referrals: Loc James MD [Non-Partnered Physician] - 07/31/16 2:15 pm
[2016-07-28] MEDS ORDERED: Furosemide 40 MG/4 ML VIAL IVP ONE (15:34)
[2016-07-28 16:33] LABS: ABG Base Excess 16.7 mEq/L (-2.0 to 3.0); ABG HCO3 46.1 mEQ/L (21-27); ABG Oxygen Saturation 87 % (95-98); ABG PH 7.38 pH Units (7.32-7.45); ABG PO2 54 mmHg (85-104); ABG TCO2 48.5 mEq/L (20-26)
[2016-07-28 16:35] LABS: ABG PCO2 78 mmHg (35-45); Blood Gas FiO2 36 %; Blood Gas Liter Flow 4 L/MIN
[2016-07-28] MEDS ORDERED: MethylPREDNISolone 40 MG/ML VIAL IVP SCH ×2 (18:00)
[2016-07-28] MEDS: Furosemide 40 MG/4 ML VIAL IVP SCH (20:43)
[2016-07-29] MEDS: MethylPREDNISolone 40 MG/ML VIAL IVP SCH ×4 (00:56→18:02)
[2016-07-29] MEDS: *HR* Metoprolol 5 MG/5 ML VIAL IVP SCH ×4 (00:56→18:02)
[2016-07-29] MEDS: Ipratropium/Albuterol Neb 3 ML IH SCH ×4 (04:15→16:18)
[2016-07-29] MEDS: *HR* Heparin 5,000 UNIT/ML VIAL SQ SCH (05:24)
[2016-07-29] MEDS: Budesonide/Formoterol 160/4.5 MDI IH SCH ×2 (07:50→21:27)
[2016-07-29] MEDS ORDERED: amLODIPine 5 MG TABLET PO SCH (07:59)
[2016-07-29] MEDS: Aspirin 81 MG TAB.CHEW PO SCH (09:00)
--- NOTE | 2016-07-29 10:27 | Internal Med Progress Note ---
Date of Encounter: 07/29/16 Time of Encounter: 10:25 - Assessment and plan (1) Acute and chronic respiratory failure with hypoxia Current Visit: Yes Status: Acute Assessment and plan: s/p extubation and has been transferred to the floors started desating on 4l, exam showed b/l bibasilar crpetns CXR shows CHF with pulmonary edema. s/p lasix 40 mg once and continue 40 twice a day. follow echo, last echo was done last year on June which showed normal LVEF with moderate diastolic dysfunction. continue high flow o2 now, seems to be tolerating it , plan to titrate it as possible. will continue the Levaquin - Continue scheduled DuoNeb treatments, Symbicort, when necessary albuterol nebulizer,steroids. (2) CAD (coronary artery disease) of artery bypass graft Current Visit: No Status: Chronic Assessment and plan: Patient has a history of coronary artery disease with previous history of CABG, current home medications include simvastatin 10 mg by mouth at bedtime. Plan: - Continue her home dose simvastatin 10 mg at bedtime. - Continue amlodipine and Coreg. have been restarted on losartan 100 mg daily - Continue aspirin. Qualifiers: [place] vs. transplanted heart: [place] heart Associated angina: without angina Qualified Code(s): I25.810 - Atherosclerosis of coronary artery bypass graft(s) without angina pectoris (3) Hypertension Current Visit: No Status: Chronic Assessment and plan: will start losartan. monitor BP. coreg does has been increased given a-f ib with RVR and hypertension. Qualifiers: Hypertension type: essential hypertension Qualified Code(s): I10 - Essential (primary) hypertension (4) CHF (congestive heart failure) Current Visit: Yes Status: Acute Assessment and plan: diastolic CHF< last ECHO 07/13 showed moderate DD. started lasix, bid. follow echo results. Qualifiers: Congestive heart failure type: diastolic Congestive heart failure chronicity: acute on chronic Qualified Code(s): I50.33 - Acute on chronic diastolic (congestive) heart failure (5) Atrial fibrillation with RVR Current Visit: Yes Status: Acute Assessment and plan: possible new diagnosis. have increased the carvedilol to 12.5 rosey lmonitor, if no imporvenet, will start on cardizem drip BP stable. denies chest pain. follow ECHO results - Time Spent With Patient 25 - 35 minutes - Subjective Interval history: 65 y/o admitted for acute respiratory failure secondary to COPD exacerbation, needed intubation and status post extubation on 07/26/16, Transferred from ICU 07/27, seen at the bedside in the morning. appears to be in less distress today. s/p CXR yest that showed CHF with pulmonary edema. tolerating nasal cannula at 4 L and saturating 95%, was on BIPAP overnight. - Constitutional Vitals: Temp Pulse Resp BP Pulse Ox 97.5 F L 90 16 155/92 96 07/29/16 07:55 07/29/16 07:55 07/29/16 08:00 07/29/16 07:55 07/29/16 08:00 General appearance: Present: cooperative, disheveled, A&O X 2, pleasant, severe distress (respiratory) Exam: Eyes: nonicteric ENT: oropharynx moist Neck: supple, other (Trachea midline) Auscultation: bilateral: creptns at the bases,better than yest. Cardiovascular: irregular rate and rhythm Gastrointestinal: normoactive bowel sounds, soft, non-tender, non-distended Integumentary: normal Extremities: no cyanosis, no edema, no clubbing Musculoskeletal: other (left leg shorter than right. no external rotation or edema.) Internal Medicine: Result - Labs CBC & Chem 7: 07/28/16 03:00 07/28/16 03:00 - ABG Interpretation ABG results: ABG ABG pH 7.38 pH Units (7.32-7.45) 07/28/16 16:25 ABG pCO2 78 mmHg (35-45) H* 07/28/16 16:25 ABG pO2 54 mmHg (85-104) L 07/28/16 16:25 ABG O2 Saturation 87 % (95-98) L 07/28/16 16:25 - Impressions Impressions Chest X-Ray 07/28/16 16:04 IMPRESSION: CHF with stable pulmonary edema and new left pleural effusion. D/ / Manolo Wolfe MD / Manolo Wolfe MD Interpreting Provider: Manolo Wolfe MD Consult Discharge Plan - Plan [facility] [Non-Partnered Physician] - 07/31/16 2:15 pm
[2016-07-29] MEDS: Pantoprazole 40 MG VIAL IVP SCH (10:36)
[2016-07-29] MEDS: Furosemide 40 MG/4 ML VIAL IVP SCH ×2 (10:36→20:45)
[2016-07-29] MEDS: Sennosides/Docusate Sodium TABLET PO SCH ×2 (10:41→20:45)
[2016-07-29] MEDS: Levofloxacin 750 MG/150 ML 750 MG/150 ML BAG IVPB SCH (10:44)
[2016-07-29] MEDS ORDERED: *HR* Heparin 5,000 UNIT/ML VIAL IVP PRN ×2 (12:31)
--- NOTE | 2016-07-29 12:32 | Cardiology Consult Note ---
<Harpreet Mercedes - Last Filed: 07/29/16 13:04> Date of Encounter: 07/29/16 Time of Encounter: 12:00 Assessment and Plan (1) Acute and chronic respiratory failure with hypoxia Current Visit: Yes Status: Acute Per cardiology: -Patient with lengthly admission. -Patient previosuly intubated. Since extubated, patient on and off Bipap. -On anitbiotics, steroids, and nebulizers. -On O2 -Influenza negative. -Will change albuterol nebs to xopenox due to tachycardia. -Management per primary service. -May be contributing factor to atrial fibrillation with RVR (JEN) (2) COPD exacerbation Current Visit: Yes Status: Acute Per cardiology: -Patient with known history of COPD. -Required intubation during this admission. -CUrrently on nebs, steroids, ATBs. -On O2 and Bipap as needed. -Managment per primary service. -May be contributing factor to atrial fibrillation. (JEN) (3) Atrial fibrillation with RVR Current Visit: Yes Status: Acute Per cardiology: -Patient with history of atrial fibrillation according to records. -Patient shakes head no when asked if she has atrial fibrillation. -CUrrently on norvasc, beta blcoker -Patient with lengthy admission due to respiratory status. -Patient now atrial fibrillation with rapid ventricular response. -Pateint admits to feeling heart "fluttering." Patient denies any increased shortness of breath. -[id number] score 7. -Will discontinue norvasc. -Will change nebulizers to xopenex. -Will start cardizem drip at 10mg/hour. -Will order cardizem 5mg IV push [id number] for HR greater than 110. -Will obtain echocardiogram when rate controlled. -Will check TSH level. -Will start heparin drip. 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 -Will continue to monitor. (JEN) (4) CAD (coronary artery disease) Current Visit: Yes Status: Acute Per cardiology: -Patient with history of CAD status post CABG. -Currently chest pain free. -Echocardiogram 06/2015 with LVEF 60%, moderate diastolic dysfunction, moderately dilated left atrium, no significant valvular dysfunction, no pulmonary hypertension, no wall motion abnormalities. -Will continue to monitor. (JEN) Qualifiers: Coronary Disease-Associated Artery/Lesion type: [place] artery [place] vs. transplanted heart: [place] heart Associated angina: without angina Qualified Code(s): I25.10 - Atherosclerotic heart disease of [place] coronary artery without angina pectoris Discussion w patient/family: The assessment and plan as outlined above was discussed with the patient who expressed understanding and agreement. All questions were answered. Thank you for involving us in the care of your patient. Please call with any questions. Patient was seen and examined with YOEL Stevens DIscussed and reviewed with . History of Present Illness Consult date: 07/29/16 Requesting physician: Sangeetha Coppola Consult reason: atrial fibrillation RVR Chief complaint: shortness of breath History of present illness: Ms. Dubon is a 65 year old female admitted with shortness of breath. Patient has had a lengthy hospital stay and at one point was intubated. Patient has been intermittently on Bipap. Patient with a history of atrial fibrillation as documented in 2012. Upon examining patient, patient non-verbal. Patient uses hand jestures and nodding/shaking head to give answers to questions. Patient denies chest pain. Patient admits to feeling heart fluttering. Patient shakes hand as if to say her breathing today is "so so." Past Med Surg Social Fam HX - Past Medical History Attestation: Yes The following information was validated with the patient. Source: patient, old records reviewed Medical history: aortic aneurysm, atrial fibrillation (atrial fibrillation as documented from 2012), CHF, COPD, coronary artery disease, hypertension, osteoporosis, sudden cardiac , syncope, valvular heart disease Psychiatric history: no psych history - Past Surgical History Surgical History: coronary bypass (CABG), vascular surgery (AAA repair due to rupture) - Social History Smoking Status: Former smoker Smokeless Tobacco Status: No Alcohol use: none Drug use: none - Family History Mother Living Status: Hx Family Cardiac Disorders: No Hx Family Respiratory Disorders: No Hx Family Cancer: No Hx Family GI Disorders: No Hx Family Neuromuscular Disorders: No Hx Family Neurologic Disorders: Yes (dementia) Hx Family HEENT Disorders: No Hx Family Autoimmune Disorders: No Medications and Allergies Amlodipine [Norvasc] 5 mg PO DAILY 10/11/15 [History] Aspirin 81 mg PO DAILY 10/11/15 [History] Buspirone HCl [Buspar] 10 mg PO BID 10/11/15 [History] Carvedilol [Coreg] 6.25 mg PO BIDWM 10/11/15 [History] Gabapentin [Neurontin] 600 mg PO TID 10/11/15 [History] Isosorbide MONOnitrate (24 HR) [Imdur] 60 mg PO QAM 10/11/15 [History] Losartan Potassium [Cozaar] 100 mg PO DAILY 10/11/15 [History] Multivitamin [One Daily Essential] 1 each PO QAM 10/11/15 [History] Oxybutynin Chloride [Ditropan Xl] 10 mg PO DAILY 10/11/15 [History] Paroxetine [Paxil] 20 mg PO HS 10/11/15 [History] Roflumilast [Daliresp] 500 mcg PO DAILY 10/11/15 [History] Simvastatin [Zocor] 10 mg PO HS 10/11/15 [History] Tiotropium [Spiriva] 18 mcg IH BID 10/11/15 [History] Benzonatate 100 mg PO TID 07/24/16 [History] Calcium Carbonate/Vitamin D3 [Oyster Shell Calcium-Vit D Tab] 1 each PO DAILY [History] Docusate Sodium [Dok] 200 mg PO DAILY PRN 07/24/16 [History] Ferrous Sulfate [Iron] 325 mg PO DAILY 07/24/16 [History] Fluticasone/Salmeterol [Advair Hfa 230-21 Mcg Inhaler] 2 puff IH BID 07/24/16 [ History] Guaifenesin [Mucinex] 600 mg PO BID 07/24/16 [History] Ipratropium/Albuterol Neb [Duoneb] 3 ml IH Q4H 07/24/16 [History] Levalbuterol [Xopenex INH] 2 puff IH QID PRN 07/24/16 [History] Loperamide [Imodium] 2 mg PO DAILY PRN 07/24/16 [History] MethylPREDNISolone [Solu-MEDROL] 125 mg IV DAILY 07/24/16 [History] Omeprazole [PriLOSEC] 20 mg PO DAILY 07/24/16 [History] Potassium Chloride [K-Tab ER] 20 meq PO BID 07/24/16 [History] Sennosides [Senna] 8.6 mg PO DAILY PRN 07/24/16 [History] Allergies acetaminophen [From Vicodin] Allergy (Verified 07/24/16 10:16) Hives codeine Allergy (Verified 07/24/16 10:16) Nausea hydrocodone [From Vicodin] Allergy (Verified 07/24/16 10:16) Hives Oxycodone [From Percocet] Allergy (Verified 07/24/16 10:16) Gastrointestinal Upset propoxyphene [From Darvocet-N] Allergy (Verified 07/24/16 10:16) Gastrointestinal Upset All Systems Review: A 10-system review of systems was performed and is negative for pertinent findings except as documented above in the HPI. - Cardiovascular Cardiovascular: as per HPI, irregular heart rhythm, other (fluttering) - Respiratory Respiratory: dyspnea Physical Examination Vital Signs, Last 4 Hours Temp Pulse Resp BP Pulse Ox 07/29/16 11:00 98.7 F 98 18 141/75 94 L 07/29/16 10:55 17 95 General: No Apparent Distress, Other (Non-verbal, using hand jestures to answer questions) HEENT: Atraumatic, Normocephaly, Mucus Membranes Moist Neck: No JVD, Normal carotid pulses Cardiac: No Murmur, Other (Irregularly irregular. Tachycardic) Lungs: Other (Expiratory wheezes noted. ) Neuro: Alert and responsive, Other (Non-verbal with exam) Abdomen: Soft, Non-Tender Skin: No rashes noted on visualized skin Musculoskeletal: No Chest Wall Tenderness Extremities: No Clubbing, No Cyanosis, Normal Pulses, Other (Moderate bilateral non-pitting pedal edema. ) Results 07/28/16 03:00 07/28/16 03:00 Laboratory Tests 07/24/16 07/24/16 07/24/16 02:40 02:40 09:52 Troponin I 0.02 0.03 B-Natriuretic Peptide 237 H 07/25/16 04:07 Troponin I 0.03 B-Natriuretic Peptide Impressions Chest X-Ray 07/28/16 16:04 IMPRESSION: CHF with stable pulmonary edema and new left pleural effusion. D/ / Manolo Wolfe MD / Manolo Wolfe MD Interpreting Provider: Manolo Wolfe MD Active Medications Albuterol/Ipratropium (Duoneb) 3 ml IH [id number] ANTONIO PRN Reason: Protocol Stop: 01/23/17 08:01 Last Admin: 07/29/16 10:52 Dose: 3 ml Aspirin (Aspirin) 81 mg PO DAILY [facility] Stop: 01/23/17 09:01 Last Admin: 07/28/16 08:30 Dose: 81 mg Budesonide/Formoterol Fumarate (Symbicort) 2 puff IH BIDR ANTONIO PRN Reason: Protocol Stop: 01/23/17 10:16 Last Admin: 07/29/16 07:50 Dose: 2 puff Carvedilol (Coreg) 12.5 mg PO BIDWM ANTONIO PRN Reason: Protocol Stop: 01/28/17 10:31 Last Admin: 07/29/16 10:42 Dose: 12.5 mg Diltiazem HCl (Cardizem) 5 mg IVP Q4H PRN PRN Reason: HYPERTENSION Stop: 01/26/17 05:49 Docusate Sodium (Colace) 100 mg PO BID PRN PRN Reason: Constipation Stop: 01/23/17 05:50 Furosemide (Lasix) 40 mg IVP BID [facility] Stop: 01/27/17 21:01 Last Admin: 07/29/16 10:36 Dose: 40 mg Heparin Sodium (Porcine) (Heparin) 4,300 unit 70 unit/kg (4300 unit) IVP Q6HR PRN PRN Reason: SEE COMMENTS Stop: 01/28/17 12:32 Heparin Sodium (Porcine) (Heparin) 2,100 unit 35 unit/kg (2100 unit) IVP Q6H PRN PRN Reason: SEE COMMENTS Stop: 01/28/17 12:32 Levofloxacin/Dextrose (Levaquin 750mg/150 Ml) 750 mg in 150 mls @ 100 mls/hr IVPB Q24H ANTONIO PRN Reason: Protocol Stop: 01/25/17 10:01 Last Admin: 07/29/16 10:44 Dose: 150 mls/hr Diltiazem HCl 125 mg/ Dextrose 125 mls @ 10 mls/hr IVC .[id number] ANTONIO PRN Reason: 10 MG/HR Stop: 01/28/17 12:31 Heparin Sodium/Dextrose (Heparin 25,000 Unit/500 Ml D5w) 25,000 unit in 500 mls @ 17.024 mls/hr IVC .Q24H ANTONIO; 14 UNIT/KG/HR PRN Reason: Protocol Stop: 01/28/17 12:46 Levalbuterol HCl (Xopenex) 1.25 mg IH [id number] ANTONIO Stop: 01/28/17 16:01 Losartan Potassium (Cozaar) 100 mg PO DAILY ANTONIO PRN Reason: Protocol Stop: 01/27/17 14:31 Last Admin: 07/29/16 10:40 Dose: 100 mg Methylprednisolone (Solu-Medrol) 60 mg IVP Q6HR ANTONIO Stop: 01/27/17 18:01 Last Admin: 07/29/16 05:24 Dose: 60 mg Metoprolol Tartrate (Lopressor) 5 mg IVP Q6HR ANTONIO Stop: 01/26/17 18:01 Last Admin: 07/29/16 11:52 Dose: 5 mg Morphine Sulfate (Morphine Sulfate) 1 mg IVP Q3H PRN PRN Reason: Pain Stop: 01/23/17 18:19 Ondansetron HCl (Zofran) 4 mg IVP Q8HR PRN PRN Reason: Nausea And Vomiting Stop: 01/23/17 05:50 Pantoprazole Sodium (Protonix) 40 mg IVP DAILY [facility] Stop: 01/24/17 11:01 Last Admin: 07/29/16 10:36 Dose: 40 mg Potassium Chloride (Potassium Chloride) 40 meq GTUBE DAILY PRN PRN Reason: ELECTROLYTE PROTOCOL Stop: 01/25/17 09:01 Senna/Docusate Sodium (Senna Plus) 2 each PO BID ANTONIO PRN Reason: Protocol Stop: 01/24/17 21:01 Last Admin: 07/29/16 10:41 Dose: 2 each Simvastatin (Zocor) 10 mg PO HS ANTONIO PRN Reason: Protocol Stop: 01/25/17 21:01 Last Admin: 07/28/16 20:43 Dose: 10 mg - Imaging and Cardiology Chest Xray: report reviewed Echo: pending - EKG Interpretation EKG results cardiology: personally reviewed (ECG reviewed with atrial fibrillation with rapid ventricular response.), other (Telemetry reviewed with average heart rate 106, atrial fibrillation. maximum heart rate 197 atrial fibrillation.) Consult Discharge Plan - Plan Referrals: [facility] [place] MD [Non-Partnered Physician] - 07/31/16 2:15 pm <Edward Holland - Last Filed: 07/29/16 13:11> Date of Encounter: 07/29/16 Assessment and Plan Discussion w patient/family: The assessment and plan as outlined above was discussed with the patient and/or family members who expressed understanding and agreement. All questions were answered. Thank you for involving us in the care of your patient. Please call with any questions. History of Present Illness History of present illness: Ms. Dubon is a 65 year old female All Systems Review: A 10-system review of systems was performed and is negative for pertinent findings except as documented above in the HPI. Physical Examination Vital Signs, Last 4 Hours Temp Pulse Resp BP Pulse Ox 07/29/16 11:00 98.7 F 98 18 141/75 94 L 07/29/16 10:55 17 95 Results 07/28/16 03:00 07/28/16 03:00 - Attending Attestation Patient was seen examined and agree with A/P as outlined. Patient was not conversant but awake and denies any complaints. Given what seems to be severe/advanced COPD in addition to her other CV issues - Afib is not surprising. Will start Dilt Gtt and PRN Dilt for rate control. Echo when HR is closer to normal Stop Norvasc. Ongoing supportive care for COPD Check TSH Will need to consider A/c before d/c - given advanced COPD - ? palliative care in which case A/c may not be the best option. Thanks for consult
[2016-07-29] MEDS ORDERED: Heparin 25,000 UNIT/500 ML D5W 25,000 UNIT/500 ML MLS IVC SCH (12:45)
[2016-07-29 13:30] LABS: Basophils % 0.1 %; Hematocrit 44.8 % (35.3-44.9); Hemoglobin 13.7 g/dL (11.5-15.4); Immature Granulocytes % 0.7 % (0-4); Lymphocytes # 0.5 K/mcL (0.6-4.6); Lymphocytes % 3.9 %; Mean Corpuscular HGB Conc 30.6 g/dL (31.6-35.5); Mean Corpuscular Hemoglobin 29.1 pg (28.0-33.3); Mean Corpuscular Volume 95.1 fL (83.0-100.0); Mean Platelet Volume 12.4 fL (9.4-12.4); Monocytes # 0.8 K/mcL (0.0-1.3); Monocytes % 6.1 %; Nucleated Red Blood Cells 0.3 /100 WBC (0); Platelet Count 161 K/mcL (140-400); Red Blood Count 4.71 M/mcL (3.82-4.97); Red Cell Distribution Width 14.3 % (11.5-14.5); Segmented Neutrophils % 89.2 %
[2016-07-29 13:48] LABS: INR 1.2; Prothrombin Time 12.8 Seconds (9.4-12.1)
[2016-07-29 13:49] LABS: Activated Partial Thrombo Time 43.4 Seconds (26.0-36.0)
[2016-07-29 13:56] LABS: Thyroid Stimulating Hormone 0.032 mcIU/mL (0.350-4.840)
[2016-07-29] MEDS: Levalbuterol Neb 1.25 MG/3 ML IH SCH ×2 (19:59→21:28)
[2016-07-29 20:49] LABS: Activated Partial Thrombo Time > 360.0 Seconds (26.0-36.0)
[2016-07-29 21:45] LABS: Heparin anti-factor XA UFH 2.41 IU/mL (0.30-0.70)
[2016-07-29 22:29] LABS: Glucose 182 mg/dL (70-99); Osmolality,Calculated 314 (280-300); Sodium 147 mEq/L (136-145); eGFR For African Americans > 60 (> 60); eGFR For Non-African Americans > 60 (> 60)
[2016-07-29 22:48] LABS: BUN/Creatinine Ratio 36 (6-26); Blood Urea Nitrogen 28 mg/dL (7-20); Calcium 9.2 mg/dL (8.6-10.8); Chloride 87 mEq/L (98-109)
[2016-07-29 23:07] LABS: Potassium 2.4 mEq/L (3.5-4.5)
[2016-07-29 23:08] LABS: Carbon Dioxide 42 mEq/L (19-29)
[2016-07-29] MEDS ORDERED: Potassium Chloride 40 MEQ, Lidocaine 1% 2 ML in D5% in Water 500 ML IVPB ONE (23:40)
[2016-07-30 00:34] LABS: ABG Base Excess 34.8 mEq/L (-2.0 to 3.0); ABG HCO3 64.3 mEQ/L (21-27); ABG Oxygen Saturation 96 % (95-98); ABG PH 7.53 pH Units (7.32-7.45); ABG PO2 73 mmHg (85-104); ABG TCO2 66.7 mEq/L (20-26); Blood Gas Liter Flow 7 L/MIN
[2016-07-30 00:36] LABS: ABG PCO2 77 mmHg (35-45)
[2016-07-30] MEDS: MethylPREDNISolone 40 MG/ML VIAL IVP SCH ×4 (00:47→18:13)
[2016-07-30] MEDS: *HR* Metoprolol 5 MG/5 ML VIAL IVP SCH ×4 (01:06→18:13)
[2016-07-30] MEDS: Levalbuterol Neb 1.25 MG/3 ML IH SCH ×4 (04:39→22:44)
[2016-07-30 05:11] LABS: Activated Partial Thrombo Time > 360.0 Seconds (26.0-36.0)
[2016-07-30 05:12] LABS: Heparin anti-factor XA UFH 2.09 IU/mL (0.30-0.70)
[2016-07-30] MEDS: Budesonide/Formoterol 160/4.5 MDI IH SCH ×2 (09:35→22:44)
[2016-07-30] MEDS: Potassium Chloride 40 MEQ, Lidocaine 1% 2 ML in D5% in Water 500 ML IVPB SCH ×2 (09:47→20:22)
[2016-07-30] MEDS: Levofloxacin 750 MG/150 ML 750 MG/150 ML BAG IVPB SCH (10:00)
[2016-07-30] MEDS: Sennosides/Docusate Sodium TABLET PO SCH ×2 (10:04→20:21)
[2016-07-30] MEDS: Pantoprazole 40 MG VIAL IVP SCH (10:05)
[2016-07-30] MEDS: Aspirin 81 MG TAB.CHEW PO SCH (10:05)
--- NOTE | 2016-07-30 10:33 | Internal Med Progress Note ---
Date of Encounter: 07/30/16 Time of Encounter: 10:30 - Assessment and plan (1) Acute and chronic respiratory failure with hypoxia Current Visit: Yes Status: Acute Assessment and plan: s/p extubation and was transferred to the floors went into pulmonary edema 07/28, started on IV lasix had afib with RVR 3, cardio consulted, HR at 70s today. will taper cardizem drip to 5 ,will follow cardio recommendtaions on meds adjustment. follow echo, last echo was done last year on June which showed normal LVEF with moderate diastolic dysfunction. continue o2 at 7 l/min, plan to titrate it as possible. will continue the Levaquin - Continue scheduled DuoNeb treatments, Symbicort, when necessary albuterol nebulizer,steroids. (2) CAD (coronary artery disease) of artery bypass graft Current Visit: No Status: Chronic Assessment and plan: Patient has a history of coronary artery disease with previous history of CABG, current home medications include simvastatin 10 mg by mouth at bedtime. Plan: - Continue her home dose simvastatin 10 mg at bedtime. - Continue amlodipine and Coreg. have been restarted on losartan 100 mg daily - Continue aspirin. Qualifiers: [place] vs. transplanted heart: [place] heart Associated angina: without angina Qualified Code(s): I25.810 - Atherosclerosis of coronary artery bypass graft(s) without angina pectoris (3) Hypertension Current Visit: No Status: Chronic Assessment and plan: will start losartan. monitor BP. coreg does has been increased given a-f ib with RVR and hypertension. Qualifiers: Hypertension type: essential hypertension Qualified Code(s): I10 - Essential (primary) hypertension (4) CHF (congestive heart failure) Current Visit: Yes Status: Acute Assessment and plan: diastolic CHF< last ECHO 07/13 showed moderate DD. started lasix, bid. follow echo results. Qualifiers: Congestive heart failure type: diastolic Congestive heart failure chronicity: acute on chronic Qualified Code(s): I50.33 - Acute on chronic diastolic (congestive) heart failure (5) Atrial fibrillation with RVR Current Visit: Yes Status: Acute Assessment and plan: has a h/o of Afib as per the records from cardio note have increased the carvedilol to 12.5 On Cardizem drip, heart rate much controlled, will taper to 5. BP stable. denies chest pain. follow ECHO results - Time Spent With Patient 25 - 35 minutes - Subjective Interval history: 65 y/o admitted for acute respiratory failure secondary to COPD exacerbation, needed intubation and status post extubation on 07/26/16, Transferred from ICU 07/27, seen at the bedside in the morning. Reports that she feels much better today. s/p CXR yest that showed CHF with pulmonary edema. Was noted to be in A. fib RVR yesterday, cardiology was consulted and is currently on Cardizem drip, heart rate much controlled. Cardiology recommendations appreciated. - Constitutional Vitals: Temp Pulse Resp BP Pulse Ox 97.9 F 77 18 140/74 96 07/30/16 08:00 07/30/16 08:00 07/30/16 08:00 07/30/16 08:00 07/30/16 08:00 General appearance: Present: cooperative, disheveled, A&O X 2, pleasant, severe distress (respiratory) Exam: Eyes: nonicteric ENT: oropharynx moist Neck: supple, other (Trachea midline) Auscultation: bilateral: creptns at the bases,better than yest. Cardiovascular: irregular rate and rhythm Gastrointestinal: normoactive bowel sounds, soft, non-tender, non-distended Integumentary: normal Extremities: no cyanosis, no edema, no clubbing Musculoskeletal: other (left leg shorter than right. no external rotation or edema.) Internal Medicine: Result - Labs CBC & Chem 7: 07/29/16 12:45 07/29/16 12:45 Labs: Short CBC 07/29/16 Range/Units 12:45 WBC 13.5 H (4.3-11.1) K/mcL Hgb 13.7 (11.5-15.4) g/dL Hct 44.8 (35.3-44.9) % Plt Count 161 (140-400) K/mcL Neutrophils # 12.0 H (1.6-8.9) K/mcL BMP 07/29/16 12:45 Sodium 147 H Potassium 2.4 L* D Chloride 87 L Carbon Dioxide 42 H* BUN 28 H Creatinine 0.78 Glucose 182 H Calcium 9.2 - ABG Interpretation ABG results: ABG ABG pH 7.53 pH Units (7.32-7.45) H 07/30/16 00:01 ABG pCO2 77 mmHg (35-45) H* 07/30/16 00:01 ABG pO2 73 mmHg (85-104) L 07/30/16 00:01 ABG O2 Saturation 96 % (95-98) 07/30/16 00:01 PT/INR, D-dimer PT 12.8 Seconds (9.4-12.1) H 07/29/16 12:45 Consult Discharge Plan - Plan Referrals: [facility],Loc Stafford MD [Non-Partnered Physician] - 07/31/16 2:15 pm
--- NOTE | 2016-07-30 11:17 | Cardiology Progress Note ---
Date of Encounter: 07/30/16 Time of Encounter: 10:30 Assessment and Plan (1) Acute and chronic respiratory failure with hypoxia Current Visit: Yes Status: Acute Per cardiology: -Patient with lengthly admission. -Patient previosuly intubated. Since extubated, patient on and off Bipap. -On anitbiotics, steroids, and nebulizers. -On O2 -Influenza negative. -Current ABG pH 7.53, pCO2 77, pO2 73, HCO3 64.3 -Recommend close observation due to hypercapnia. May require BiPAP. -Management per primary service. -May be contributing factor to atrial fibrillation with RVR (JEN) -Patient euvolemic on exam. BNP stable. Net negative -285ml. Discussed and reviewed with Dr. Holland, we'll discontinue IV Lasix 40 mg twice a day and convert to Lasix 40 mg by mouth daily. Patient noted to be hypokalemic and suspicion due to diuresis. Being replaced by primary service. No ventricular arrhythmias noted on telemetry. Continue to monitor. (2) COPD exacerbation Current Visit: Yes Status: Acute Per cardiology: -Patient with known history of COPD. -Required intubation during this admission. -CUrrently on nebs, steroids, ATBs. -On O2 and Bipap as needed. -Managment per primary service. -May be contributing factor to atrial fibrillation. (JEN) (3) Atrial fibrillation with RVR Current Visit: Yes Status: Acute Per cardiology: -Patient with history of atrial fibrillation according to records. -Patient shakes head no when asked if she has atrial fibrillation. -CUrrently on cardizem drip, beta scott, and heparin drip. -Patient with lengthy admission due to respiratory status. -Patient now atrial fibrillation with heart rate 70. Average HR over past 12 hours is 74. -Pateint denies any current feelings of fluttering. -[id number] score 7. -DIscussed with patient risk of stoke, emboli, or with not being on longterm anticoagulation. Patient states she wants one more day to think about options. Continue heparin drip until patient decides regarding longterm anticoagulation. -TSH 0.032. May be contributing factor to atrial fibrillation with RVR. -Will start cardizem 30mg PO [id number]-- SBP labile, will monitor and consider long acting CD tomorrow. -Will discontinue cardizem drip 2 hours after first dose of PO cardizem. -Continue PRN cardizem 5mg IV push [id number] for HR greater than 110. -Echocardiogram pending (ordered per primary service) -Continue heparin drip. -May consider endocrinology input for low TSH. -Further recommendations for longterm anticoagulation once patient decides regarding longterm anticoagulation. -Will continue to monitor. (JEN) (4) CAD (coronary artery disease) Current Visit: Yes Status: Chronic Per cardiology: -Patient with history of CAD status post CABG. -Currently chest pain free. -Echocardiogram 06/2015 with LVEF 60%, moderate diastolic dysfunction, moderately dilated left atrium, no significant valvular dysfunction, no pulmonary hypertension, no wall motion abnormalities. -On CCB, BB, ARB, asa, statin, and heparin drip. -Will continue to monitor. (JEN) Qualifiers: Coronary Disease-Associated Artery/Lesion type: [place] artery [place] vs. transplanted heart: [place] heart Associated angina: without angina Qualified Code(s): I25.10 - Atherosclerotic heart disease of [place] coronary artery without angina pectoris Discussion w patient/family: The assessment and plan as outlined above was discussed with the patient who expressed understanding and agreement. All questions were answered. Thank you for involving us in the care of your patient. Please call with any questions. Patient was seen and examined with YOEL Stevens DIscussed and reviewed with . Subjective Principal diagnosis: Acute respiratory failure Interval history: Patient with lengthy admission with respiratory failure. Patient required intubated one point during admission. Patient with history of atrial fibrillation. During this admission, patient went into atrial fibrillation with rapid ventricular response and cardiology was consulted. Patient states she currently does not feel any fluttering. Patient denies chest pain. States shortness of breath is a little better today. (JEN) Objective Vital Signs, Last 4 Hours Temp Pulse Resp BP Pulse Ox 07/30/16 08:00 97.9 F 77 18 140/74 96 General: Conversant, Other (Conversational dyspnea noted. Patient spoke in short sentences. ) HEENT: Atraumatic, Normocephaly, Mucus Membranes Moist Neck: No JVD, Normal carotid pulses Cardiac: Normal S1 and S2, No Murmur, Other (Irregularly irregular) Lungs: Other (Inspiratory wheezes noted. ) Neuro: Alert and responsive, No focal deficits noted Abdomen: Soft, Non-Tender Skin: No rashes noted on visualized skin Musculoskeletal: No Chest Wall Tenderness Extremities: No Clubbing, No Cyanosis, Normal Pulses, Other (Mild bilateral, non -pitting pedal edema.) Results 07/29/16 12:45 07/29/16 12:45 Lab Results Active Medications Aspirin (Aspirin) 81 mg PO DAILY [facility] Stop: 01/23/17 09:01 Last Admin: 07/30/16 10:05 Dose: 81 mg Budesonide/Formoterol Fumarate (Symbicort) 2 puff IH BIDR [facility] PRN Reason: Protocol Stop: 01/23/17 10:16 Last Admin: 07/30/16 09:35 Dose: Not Given Carvedilol (Coreg) 12.5 mg PO BIDWM [facility] PRN Reason: Protocol Stop: 01/28/17 10:31 Last Admin: 07/30/16 10:03 Dose: 12.5 mg Diltiazem HCl (Cardizem) 5 mg IVP Q4H PRN PRN Reason: HYPERTENSION Stop: 01/26/17 05:49 Docusate Sodium (Colace) 100 mg PO BID PRN PRN Reason: Constipation Stop: 01/23/17 05:50 Furosemide (Lasix) 40 mg IVP BIDDIURETIC [facility] Stop: 01/29/17 17:01 Heparin Sodium (Porcine) (Heparin) 4,300 unit 70 unit/kg (4300 unit) IVP Q6HR PRN PRN Reason: SEE COMMENTS Stop: 01/28/17 12:32 Heparin Sodium (Porcine) (Heparin) 2,100 unit 35 unit/kg (2100 unit) IVP Q6H PRN PRN Reason: SEE COMMENTS Stop: 01/28/17 12:32 Levofloxacin/Dextrose (Levaquin 750mg/150 Ml) 750 mg in 150 mls @ 100 mls/hr IVPB Q24H [facility] PRN Reason: Protocol Stop: 01/25/17 10:01 Last Admin: 07/30/16 10:00 Dose: 100 mls/hr Diltiazem HCl 125 mg/ Dextrose 125 mls @ 10 mls/hr IVC .[id number] [facility] PRN Reason: 10 MG/HR Stop: 01/28/17 12:31 Last Admin: 07/30/16 01:14 Dose: 10 mg/hr, 10 mls/hr Heparin Sodium/Dextrose (Heparin 25,000 Unit/500 Ml D5w) 25,000 unit in 500 mls @ 17.024 mls/hr IVC .Q24H [facility]IO; 14 UNIT/KG/HR PRN Reason: Protocol Stop: 01/28/17 12:46 Last Titration: 07/30/16 06:06 Dose: 9.04 unit/kg/hr, 11 mls/hr Potassium Chloride 40 meq/ (Lidocaine 2 ml/ Dextrose) 522 mls @ 130.5 mls/hr IVPB Q4H [facility] Stop: 07/30/16 19:44 Last Admin: 07/30/16 09:47 Dose: 130.5 mls/hr Levalbuterol HCl (Xopenex) 1.25 mg IH [id number] [facility] Stop: 01/28/17 16:01 Last Admin: 07/30/16 09:35 Dose: Not Given Losartan Potassium (Cozaar) 100 mg PO DAILY [facility] PRN Reason: Protocol Stop: 01/27/17 14:31 Last Admin: 07/30/16 10:03 Dose: 100 mg Methylprednisolone (Solu-Medrol) 60 mg IVP Q6HR [facility] Stop: 01/27/17 18:01 Last Admin: 07/30/16 05:59 Dose: 60 mg Metoprolol Tartrate (Lopressor) 5 mg IVP Q6HR [facility] Stop: 01/26/17 18:01 Last Admin: 07/30/16 05:59 Dose: 5 mg Morphine Sulfate (Morphine Sulfate) 1 mg IVP Q3H PRN PRN Reason: Pain Stop: 01/23/17 18:19 Ondansetron HCl (Zofran) 4 mg IVP Q8HR PRN PRN Reason: Nausea And Vomiting Stop: 01/23/17 05:50 Pantoprazole Sodium (Protonix) 40 mg IVP DAILY [facility] Stop: 01/24/17 11:01 Last Admin: 07/30/16 10:05 Dose: 40 mg Potassium Chloride (Potassium Chloride) 40 meq PO DAILY [facility] Stop: 01/29/17 10:46 Senna/Docusate Sodium (Senna Plus) 2 each PO BID [facility] PRN Reason: Protocol Stop: 01/24/17 21:01 Last Admin: 07/30/16 10:04 Dose: 2 each Simvastatin (Zocor) 10 mg PO HS [facility] PRN Reason: Protocol Stop: 01/25/17 21:01 Last Admin: 07/29/16 20:45 Dose: 10 mg Laboratory Tests 07/24/16 07/24/16 07/25/16 02:40 09:52 04:07 WBC Potassium Troponin I 0.02 0.03 0.03 B-Natriuretic Peptide TSH 07/29/16 07/29/16 07/29/16 12:45 12:45 12:45 WBC 13.5 H Potassium 2.4 L* D Troponin I B-Natriuretic Peptide 352 H TSH 0.032 L - Imaging and Cardiology Chest Xray: report reviewed Echo: pending - EKG Interpretation EKG results cardiology: personally reviewed (ECG with atrial fibrillation with RVR), other (Telemetry reviewed with average HR 74, atrial fibrillation.) Consult Discharge Plan - Plan Referrals: Erika,Loc Stafford MD [Non-Partnered Physician] - 07/31/16 2:15 pm
--- NOTE | 2016-07-30 14:57 | ECHO - Doppler Report ---
Echocardiogram Name: Ana Dubon Date of Study: 07/30/2016 Date: 1950 Ht: 61.0 in Medical Record#: [id number] Age: 65 Wt: 134.0 lb Gender: Female BSA: 1.59 Order #: [id number] Location: [facility] Room #: 3A22 Reading Physician: Earnest Simmons MD, [facility] Accessibility Lift Technician: Princess Godwin Ordering Physician: Qiana Coppola MD Primary Physician: Tommie Quintana MD Indications: Pulmonary edema Impressions: LVEF probably normal. Patient terminated study Left Ventricular Wall Motion: Rest Echo Findings All visualized wall segments showed normal motion. Findings: Study Quality * Technically adequate exam. Left Atrium * Normal left atrial size. Aortic Valve * Trace aortic regurgitation. * Aortic valve not well visualized. Aorta * Normally sized aortic root. Pericardium * The pericardium appears normal. Pulmonic Valve * No pulmonic regurgitation. * No pulmonic stenosis. * Pulmonic valve is not well visualized. Tricuspid Valve * No tricuspid stenosis. * No tricuspid regurgitation. * Unable to estimate RVSP due to lack of TR jet. ECG Findings * Atrial fibrillation. Right Ventricle * Not visualized - patient refused Right Atrium * Right atrium is not well visualized. Interatrial Septum * Interatrial septum not well evaluated. Mitral Valve * Mitral valve not well visualized. IVC * The IVC is not well evaluated. Left Ventricle * LVEF probably normal History Hypertension Hypercholesteremia Family History of CAD History of CAD/PTCA Coronary Artery Bypass Graft Congestive Heart Failure 07/26/2015 a Previous Echo was performed. Measurements: BP: 119/ 69 2D Normal Values RVIDd: 2.60 cm <2.7 cm IVSd: .90 cm 0.6 - 1.0 cm LVIDd: 3.90 cm 3.7 - 5.6 cm LVPWd: .90 cm 0.6 - 1.1 cm LVIDs: 2.40 cm 1.5 - 3.6 cm AO: 2.50 cm < 4.0 cm LA: 2.70 cm 2.0 - 4.0cm %FS: 38.50 cm >25 % LA volume: Mitral Valve Peak E:.96 m/sec Peak A:.89 m/sec E/A Ratio:1.1 Updated by Earnest Simmons MD, FACC on 07/30/2016 2:46:36 PM electronically signed on 07/30/2016 2:51:25 PM with status of Final Wall Motion Barrett: 1=Normal, 2=Hypokinesis, 3=Akinesis, 4=Dyskinesis, 5=Aneurysmal, 6=Hyperkinetic, X=Not Visualized (Blank)=Missing
[2016-07-30] MEDS ORDERED: Protamine Sulfate 50 MG/5 ML VIAL IVP ONE (15:43)
[2016-07-30] MEDS: Potassium Chloride Elixir 20 MEQ/15 ML UDC PO SCH (15:56)
--- NOTE | 2016-07-30 16:34 | Event Note ---
Date of Encounter: 07/30/16 Time of Encounter: 16:34 I was paged by the nurse at 3:30 pm and was told that the patient was bleeding from the site where ABG was done. The night before, APTT was noted to be high at >360 and thus the hepairn drip was held for 1 hr. The patient is on heparin drip for A- Fib RVR. however the protocol was not followed and there is no repeat PTT drawn or any other labs drawn until this time. The labs were ordered 7:40 am in the morning. Phlebotomy was called and they said that they are not supposed to draw blood in patients who have a line and the nurse should draw blood from the line. as per the nurse, she was not made aware by the lab that the label was printed. Heparin was hung without rechecking the APTT, hence the patient is bleeding. On exam, patient is alert and awake, the wrist and the anti cubital fossa has been bandaged, pressure has been applied, do not see any active bleed at this time. will stop the heparin drip, repeat APTT, cbc , chem. will give one dose of protamine sulfate stat. conitnue to follow the heparin protocol. observe for bleeding.
[2016-07-30 16:39] LABS: Basophils % 0.1 %; Hematocrit 40.5 % (35.3-44.9); Hemoglobin 12.5 g/dL (11.5-15.4); Immature Granulocytes % 0.6 % (0-4); Lymphocytes # 0.6 K/mcL (0.6-4.6); Lymphocytes % 3.9 %; Mean Corpuscular HGB Conc 30.9 g/dL (31.6-35.5); Mean Corpuscular Hemoglobin 29.2 pg (28.0-33.3); Mean Corpuscular Volume 94.6 fL (83.0-100.0); Mean Platelet Volume 11.7 fL (9.4-12.4); Monocytes # 0.9 K/mcL (0.0-1.3); Monocytes % 6.1 %; Neutrophils # 13.1 K/mcL (1.6-8.9); Nucleated Red Blood Cells 0.1 /100 WBC (0); Platelet Count 155 K/mcL (140-400); Red Blood Count 4.28 M/mcL (3.82-4.97); Red Cell Distribution Width 14.2 % (11.5-14.5); Segmented Neutrophils % 89.3 %
[2016-07-30 16:52] LABS: BUN/Creatinine Ratio 43 (6-26); Blood Urea Nitrogen 28 mg/dL (7-20); Calcium 8.6 mg/dL (8.6-10.8); Chloride 87 mEq/L (98-109); Glucose 115 mg/dL (70-99); Osmolality,Calculated 300 (280-300); Sodium 142 mEq/L (136-145); eGFR For African Americans > 60 (> 60); eGFR For Non-African Americans > 60 (> 60)
[2016-07-30 16:53] LABS: Carbon Dioxide 45 mEq/L (19-29)
[2016-07-30] MEDS ORDERED: Furosemide 40 MG/4 ML VIAL IVP SCH (17:00)
[2016-07-30] MEDS ORDERED: *HR* Heparin 5,000 UNIT/ML VIAL IVP PRN ×2 (17:04)
[2016-07-30 17:08] LABS: Activated Partial Thrombo Time > 360.0 Seconds (26.0-36.0)
[2016-07-30] MEDS ORDERED: Heparin 25,000 UNIT/500 ML D5W 25,000 UNIT/500 ML MLS IVC SCH (17:15)
[2016-07-30 18:36] LABS: Hematocrit 41.1 % (35.3-44.9); Hemoglobin 12.7 g/dL (11.5-15.4); Immature Platelets 12.3 % (1.1-6.1); Mean Corpuscular HGB Conc 30.9 g/dL (31.6-35.5); Mean Corpuscular Hemoglobin 29.3 pg (28.0-33.3); Mean Corpuscular Volume 94.9 fL (83.0-100.0); Mean Platelet Volume 12.4 fL (9.4-12.4); Red Blood Count 4.33 M/mcL (3.82-4.97); Red Cell Distribution Width 13.9 % (11.5-14.5)
[2016-07-30 18:42] LABS: INR 1.3; Prothrombin Time 14.6 Seconds (9.4-12.1)
[2016-07-30 18:44] LABS: Activated Partial Thrombo Time 24.4 Seconds (26.0-36.0)
[2016-07-31] MEDS: *HR* Metoprolol 5 MG/5 ML VIAL IVP SCH ×2 (00:38→06:18)
[2016-07-31] MEDS: MethylPREDNISolone 40 MG/ML VIAL IVP SCH ×3 (00:38→17:43)
[2016-07-31] MEDS: Potassium Chloride 40 MEQ, Lidocaine 1% 2 ML in D5% in Water 500 ML IVPB SCH (00:38)
[2016-07-31 01:41] LABS: INR 1.1; Prothrombin Time 12.3 Seconds (9.4-12.1)
[2016-07-31 01:44] LABS: Activated Partial Thrombo Time 27.7 Seconds (26.0-36.0)
[2016-07-31 03:36] LABS: Basophils % 0.1 %; Hematocrit 38.9 % (35.3-44.9); Immature Granulocytes % 0.5 % (0-4); Lymphocytes # 0.6 K/mcL (0.6-4.6); Lymphocytes % 3.7 %; Mean Corpuscular HGB Conc 30.8 g/dL (31.6-35.5); Mean Corpuscular Hemoglobin 29.4 pg (28.0-33.3); Mean Corpuscular Volume 95.3 fL (83.0-100.0); Monocytes # 0.7 K/mcL (0.0-1.3); Monocytes % 4.7 %; Neutrophils # 14.2 K/mcL (1.6-8.9); Platelet Count 153 K/mcL (140-400); Red Blood Count 4.08 M/mcL (3.82-4.97)
[2016-07-31 03:50] LABS: BUN/Creatinine Ratio 41 (6-26); Blood Urea Nitrogen 29 mg/dL (7-20); Calcium 8.7 mg/dL (8.6-10.8); Chloride 88 mEq/L (98-109); Glucose 213 mg/dL (70-99); Osmolality,Calculated 296 (280-300); Sodium 137 mEq/L (136-145); eGFR For African Americans > 60 (> 60); eGFR For Non-African Americans > 60 (> 60)
[2016-07-31 03:55] LABS: Potassium 4.3 mEq/L (3.5-4.5)
[2016-07-31 03:58] LABS: Carbon Dioxide 42 mEq/L (19-29)
[2016-07-31] MEDS: Levalbuterol Neb 1.25 MG/3 ML IH SCH ×4 (04:36→22:25)
--- NOTE | 2016-07-31 07:11 | Electrocardiograph Report ---
[place] [id number] Test Date: 2016-07-29 Pat Name: Ana Dubon Department: 115 Room: 3A22 Gender: F Coil Wrapper: : 1950 Requested By: Harvey Baptiste Order Number: [id number] Reading MD: Earnest Simmons MD Measurements Intervals [place] Rate: 157 P: RI: 0 QRS: 67 QRSD: 88 T: -60 QT: 205 QTc: 293 Interpretive Statements ATRIAL FIBRILLATION WITH RAPID VENTRICULAR RESPONSE NONSPECIFIC ST \T\ T-WAVE ABNORMALITY Electronically Signed On 07-31-2016 7:09:56 EST by Earnest Simmons MD
[2016-07-31] MEDS: Potassium Chloride Elixir 20 MEQ/15 ML UDC PO SCH (09:19)
[2016-07-31] MEDS: Sennosides/Docusate Sodium TABLET PO SCH ×2 (09:20→21:06)
[2016-07-31] MEDS: Furosemide 40 MG TABLET PO SCH (09:20)
[2016-07-31] MEDS: Aspirin 81 MG TAB.CHEW PO SCH (09:20)
[2016-07-31] MEDS: Pantoprazole 40 MG VIAL IVP SCH (09:21)
[2016-07-31] MEDS: Levofloxacin 750 MG/150 ML 750 MG/150 ML BAG IVPB SCH ×2 (09:29→17:29)
--- NOTE | 2016-07-31 10:43 | Cardiology Progress Note ---
Date of Encounter: 07/31/16 Time of Encounter: 09:00 Assessment and Plan (1) Acute and chronic respiratory failure with hypoxia Current Visit: Yes Status: Acute Per cardiology: -Patient previosuly intubated. Since extubated, patient on and off Bipap. -On antibiotics, steroids, and nebulizers being managed by primary service. -On High flow NC O2 8L -Influenza negative. -Most recent ABG pH 7.53, pCO2 77, pO2 73, HCO3 64.3 -Euvolemic on exam. -Recommend close observation due to hypercapnia. May require BiPAP. Patient with possible visual hallucinations-- recommend re-consulting pulmonary service if deemed clinically warranted. Consult placed to palliative care. -Management per primary service. (JEN) (2) COPD exacerbation Current Visit: Yes Status: Acute Per cardiology: -Patient with known history of severe COPD. -Required intubation during this admission. -CUrrently on nebs, steroids, ATBs. -On O2 and Bipap as needed. -Recommend re-consutling pulmonary service. -Managment per primary service. (JEN) (3) Atrial fibrillation with RVR Current Visit: Yes Status: Acute Per cardiology: -Pateint denies any current feelings of fluttering. -Patient with history of atrial fibrillation according to records, however patient denies history of atrial fibrillation. -Upon previous review of telemetry and ECGs with Dr. Holland, concerns for paroxysmal A. fib versus MAT. Reviewed and discussed with Dr. Sullivan today-- and no A. fib appreciated and felt to be MAT. No recommendations for further anticoagulation at this time. Heparin drip discontinued. Telemetry to monitor telemetry -Patient now sinus rhythm with frequent PACs with heart rate 78.. Average HR over past 12 hours is 72. -Currently on Cardizem 30 mg by mouth every 6 hours and Coreg 12.5 mg by mouth twice a day. Upon review of records has been receiving IV Lopressor 5 mg every 6 hours. We'll convert to Cardizem CD 120 mg by mouth daily and increase Coreg to 25 mg by mouth twice a day. Would ask continue IV Lopressor. Systolic blood pressure currently 120s to 130s. Per discussion with Dr. Sullivan, will sign off , reconsult as needed. (JNE) (4) Low TSH level Current Visit: Yes Status: Acute Per Cardiology: TSH noted to be low at 0.032, previous normal. Management per primary service. Consider endocrinology consult if deemed appropriate. (5) CAD (coronary artery disease) Current Visit: Yes Status: Chronic Per cardiology: -Patient with history of CAD status post CABG. -trops negative x 3, Currently chest pain free. -Echocardiogram 06/2015 with LVEF 60%, moderate diastolic dysfunction, moderately dilated left atrium, no significant valvular dysfunction, no pulmonary hypertension, no wall motion abnormalities. -On BB, ARB, asa, statin. -Will continue to monitor. (JEN) Qualifiers: Coronary Disease-Associated Artery/Lesion type: [place] artery [place] vs. transplanted heart: [place] heart Associated angina: without angina Qualified Code(s): I25.10 - Atherosclerotic heart disease of [place] coronary artery without angina pectoris Discussion w patient/family: Thank you for involving us in the care of your patient. Please call with any questions. Patient was seen and examined with YOEL Stevens DIscussed and reviewed with Dr. Sullivan. Subjective Principal diagnosis: Acute respiratory failure Interval history: Patient with lengthy admission with respiratory failure-- required intubation at one point during admission. Patient with history of atrial fibrillation according to Cardiology office records in 2012, however patient previously denied awareness to afib hx. During this admission, patient went into suspected atrial fibrillation with rapid ventricular response and cardiology was consulted. Patient states she currently does not feel any fluttering or chest pain. Patient states breathing is worse today. However, alert to person and place only and reports "seeing people in her room who are smoking". Patient A&O x 3 yesterday and was evaluating possible rat exterminator AC. (JEN) Patient seen and examined again this afternoon and currently alert and oriented 3. Reports lives at senior living. Objective Vital Signs, Last 4 Hours Temp Pulse Resp BP Pulse Ox 07/31/16 08:00 97.0 F L 68 20 150/86 95 General: Conversant, Other (Conversational dyspnea noted. ) HEENT: Atraumatic, Normocephaly, Mucus Membranes Moist Neck: No JVD, Normal carotid pulses Cardiac: Other (Irregularly, irregular) Lungs: Other (Expiratory wheezes noted. ) Neuro: Alert and responsive, Other (Confused) Abdomen: Soft, Non-Tender Skin: No rashes noted on visualized skin Musculoskeletal: No Chest Wall Tenderness Extremities: No Clubbing, No Cyanosis, No Edema, Normal Pulses Results 07/31/16 03:28 07/31/16 03:28 Lab Results Impressi Active Medications Aspirin (Aspirin) 81 mg PO DAILY [facility] Stop: 01/23/17 09:01 Last Admin: 07/31/16 09:20 Dose: 81 mg Budesonide/Formoterol Fumarate (Symbicort) 2 puff IH BIDR [facility] PRN Reason: Protocol Stop: 01/23/17 10:16 Last Admin: 07/30/16 22:44 Dose: 2 puff Carvedilol (Coreg) 12.5 mg PO BIDWM [facility] PRN Reason: Protocol Stop: 01/28/17 10:31 Last Admin: 07/31/16 09:19 Dose: 12.5 mg Diltiazem HCl (Cardizem) 5 mg IVP Q4H PRN PRN Reason: HYPERTENSION Stop: 01/26/17 05:49 Diltiazem HCl (Cardizem) 30 mg PO 0200,0800,1400,2000 [facility] Stop: 01/29/17 20:31 Last Admin: 07/31/16 03:23 Dose: 30 mg Docusate Sodium (Colace) 100 mg PO BID PRN PRN Reason: Constipation Stop: 01/23/17 05:50 Furosemide (Lasix) 40 mg PO DAILY [facility] Stop: 01/30/17 09:01 Last Admin: 07/31/16 09:20 Dose: 40 mg Heparin Sodium (Porcine) (Heparin) 4,300 unit 70 unit/kg (4300 unit) IVP Q6HR PRN PRN Reason: SEE COMMENTS Stop: 01/29/17 17:05 Heparin Sodium (Porcine) (Heparin) 2,100 unit 35 unit/kg (2100 unit) IVP Q6H PRN PRN Reason: SEE COMMENTS Stop: 01/29/17 17:05 Levofloxacin/Dextrose (Levaquin 750mg/150 Ml) 750 mg in 150 mls @ 100 mls/hr IVPB Q24H [facility] PRN Reason: Protocol Stop: 01/25/17 10:01 Last Admin: 07/31/16 09:29 Dose: 100 mls/hr Heparin Sodium/Dextrose (Heparin 25,000 Unit/500 Ml D5w) 25,000 unit in 500 mls @ 17.024 mls/hr IVC .Q24H [facility]; 14 UNIT/KG/HR PRN Reason: Protocol Stop: 01/29/17 17:16 Levalbuterol HCl (Xopenex) 1.25 mg IH [id number] [facility] Stop: 01/28/17 16:01 Last Admin: 07/31/16 04:36 Dose: 1.25 mg Losartan Potassium (Cozaar) 100 mg PO DAILY [facility] PRN Reason: Protocol Stop: 01/27/17 14:31 Last Admin: 07/31/16 09:20 Dose: 100 mg Methylprednisolone (Solu-Medrol) 60 mg IVP Q6HR [facility] Stop: 01/27/17 18:01 Last Admin: 07/31/16 06:18 Dose: 60 mg Metoprolol Tartrate (Lopressor) 5 mg IVP Q6HR [facility] Stop: 01/26/17 18:01 Last Admin: 07/31/16 06:18 Dose: 5 mg Morphine Sulfate (Morphine Sulfate) 1 mg IVP Q3H PRN PRN Reason: Pain Stop: 01/23/17 18:19 Ondansetron HCl (Zofran) 4 mg IVP Q8HR PRN PRN Reason: Nausea And Vomiting Stop: 01/23/17 05:50 Pantoprazole Sodium (Protonix) 40 mg IVP DAILY [facility] Stop: 01/24/17 11:01 Last Admin: 07/31/16 09:21 Dose: 40 mg Potassium Chloride (Potassium Chloride) 40 meq PO DAILY [facility] Stop: 01/29/17 10:46 Last Admin: 07/31/16 09:19 Dose: 40 meq Senna/Docusate Sodium (Senna Plus) 2 each PO BID [facility] PRN Reason: Protocol Stop: 01/24/17 21:01 Last Admin: 07/31/16 09:20 Dose: 2 each Simvastatin (Zocor) 10 mg PO HS [facility] PRN Reason: Protocol Stop: 01/25/17 21:01 Last Admin: 07/30/16 20:21 Dose: 10 mg ons Chest X-Ray 07/31/16 07:41 IMPRESSION: Findings of CHF and pulmonary edema have improved. There is mild, persistent bilateral lower lobe airspace disease, which could reflect atelectasis. D/ / 07/31/2016 08:01:59 Sariah Vasquez MD / [facility] Interpreting Provider: Sariah Vasquez MD Laboratory Tests 07/29/16 07/29/16 07/31/16 12:45 12:45 03:28 WBC 15.6 H Potassium B-Natriuretic Peptide 352 H TSH 0.032 L 07/31/16 03:28 WBC Potassium 4.3 D B-Natriuretic Peptide TSH - Imaging and Cardiology Chest Xray: report reviewed Echo: report reviewed - EKG Interpretation EKG results cardiology: other (Telemetry reviewed with average heart rate 72 (SR ) with episodes of atrial tachycardia vs afib-- will review strips with Dr. Sullivan) Consult Discharge Plan - Plan Referrals: Erika,Loc Stafford MD [Non-Partnered Physician] - 07/31/16 2:15 pm
[2016-07-31] MEDS: Budesonide/Formoterol 160/4.5 MDI IH SCH ×2 (10:59→22:25)
--- NOTE | 2016-07-31 12:22 | Event Note ---
Date of Encounter: 07/31/16 Time of Encounter: 12:19 Patient independently seen and examined. Case discussed with TECHNOLOGY INSTRUCTOR. Please consider this event note an addendum to the progress note. Patient a 65 year old with history of CAD. Currently with respiratory insufficiency due to PNA. Tachycardia noted yesterday, which was thought to be AF with RVR. ECG reviewed today - appears to demonstrated MAT. Examination: VSS. CV: Regular today. RESP: Wheezing bilaterally, left > right. ABD: Soft, NT/ND, +BS. EXT: No C/C/E. Impressions: 1. Respiratory insufficiency appears primarily due to AECOPD, PNA. 2. Multifocal atrial tachycardia. 3. CAD, prior CABG. 4. Confusion - ? related to pneumonia. 5. Abnormal TSH. Recommendations: 1. No need for heparin drip at this time. Okay to change to DVT prophylaxis. 2. Agree with aspirin/statin/BB therapy. Okay to change to cardioselective BB if need. 3. Echocardiogram demonstrates grossly normal LV function. 4. Mild pulmonary vascular congestion improved. Okay to continue PO Lasix. 5. Please call with questions or concerns. Thanks, Ricardo Sullivan DO, FACC
[2016-07-31] MEDS: Diltiazem CD (24hr) 120 MG CAPSULE PO SCH (12:24)
[2016-07-31] MEDS ORDERED: D5% in Water 1,000 ML IV PRN (12:58)
[2016-07-31] MEDS ORDERED: *HR* Dextrose 50 % in Water (Syg) 50 ML SYRINGE IVP PRN (12:58)
[2016-07-31] MEDS ORDERED: Dextrose Gel 15 GM PO PRN ×2 (12:58)
[2016-07-31] MEDS ORDERED: *HR* Metoprolol 5 MG/5 ML VIAL IVP PRN (12:59)
--- NOTE | 2016-07-31 13:40 | Internal Med Progress Note ---
Date of Encounter: 07/31/16 Time of Encounter: 13:38 - Assessment and plan (1) Acute and chronic respiratory failure with hypoxia Current Visit: Yes Status: Acute Assessment and plan: s/p extubation and was transferred to the floors went into pulmonary edema 07/28, started on IV lasix afib with RVR 07/29, cardio consulted, initially started on heparin drip and cardizem drip, now off heparin drip. continue o2 at 8 l/min, plan to titrate it as possible. will continue the Levaquin till 08/03, CXR shows b/l basal atelectasis and CHF has improved. - Continue scheduled DuoNeb treatments, Symbicort, when necessary albuterol nebulizer,steroids. (2) CAD (coronary artery disease) of artery bypass graft Current Visit: No Status: Chronic Assessment and plan: Patient has a history of coronary artery disease with previous history of CABG, current home medications include simvastatin 10 mg by mouth at bedtime. Plan: - Continue her home dose simvastatin 10 mg at bedtime. - Continue amlodipine and Coreg. have been restarted on losartan 100 mg daily - Continue aspirin. Qualifiers: [place] vs. transplanted heart: [place] heart Associated angina: without angina Qualified Code(s): I25.810 - Atherosclerosis of coronary artery bypass graft(s) without angina pectoris (3) Hypertension Current Visit: No Status: Chronic Assessment and plan: will start losartan. monitor BP. coreg does has been increased . have been added on cardizem Qualifiers: Hypertension type: essential hypertension Qualified Code(s): I10 - Essential (primary) hypertension (4) CHF (congestive heart failure) Current Visit: Yes Status: Acute Assessment and plan: diastolic CHF< last ECHO 07/13 showed moderate DD. started lasix, bid. normal LVEF as per ECHO studies Qualifiers: Congestive heart failure type: diastolic Congestive heart failure chronicity: acute on chronic Qualified Code(s): I50.33 - Acute on chronic diastolic (congestive) heart failure (5) Atrial fibrillation with RVR Current Visit: Yes Status: Acute Assessment and plan: has a h/o of Afib as per the records from cardio note have increased the carvedilol to 12.5 was on Cardizem drip, heart rate much controlled, has been switched to oral cardio thiks this was possibly MAT and gino heparin drip has been dc. BP stable. denies chest pain. ECHO with normal LVEF. - Time Spent With Patient 25 - 35 minutes - Subjective Interval history: 65 y/o admitted for acute respiratory failure secondary to COPD exacerbation, needed intubation and status post extubation on 07/26/16, Transferred from ICU 07/27, seen at the bedside in the morning. Reports that she feels confused and says the heparin drip is making her hallucinating. s/p CXR today that shows improved CHF and mild b/L infiltrate possible atelectasis. Was noted to be in A. fib RVR , cardiology was consulted , was on cardizem and heparin drip , has been changed to PO cardizem and heparin drip has been stopped. Cardiology recommendations appreciated. - Constitutional Vitals: Temp Pulse Resp BP Pulse Ox 97.0 F L 65 18 150/79 94 L 07/31/16 10:00 07/31/16 10:00 07/31/16 10:59 07/31/16 10:00 07/31/16 10:59 General appearance: Present: cooperative, disheveled, A&O X 2, mild distress, pleasant Exam: Eyes: nonicteric ENT: oropharynx moist Neck: supple, other (Trachea midline) Auscultation: bilateral: mild creptns at the bases,improved. Cardiovascular: irregular rate and rhythm Gastrointestinal: normoactive bowel sounds, soft, non-tender, non-distended Integumentary: normal Extremities: no cyanosis, no edema, no clubbing Musculoskeletal: other (left leg shorter than right. no external rotation or edema.) Internal Medicine: Result - Labs CBC & Chem 7: 07/31/16 03:28 07/31/16 03:28 Labs: Short CBC 07/30/16 07/30/16 07/31/16 Range/Units 16:25 18:15 03:28 WBC 14.7 H 15.7 H 15.6 H (4.3-11.1) K/mcL Hgb 12.5 12.7 12.0 (11.5-15.4) g/dL Hct 40.5 41.1 38.9 (35.3-44.9) % Plt Count 155 155 153 (140-400) K/mcL Neutrophils # 13.1 H 14.2 H (1.6-8.9) K/mcL BMP 07/30/16 07/31/16 16:25 03:28 Sodium 142 137 Potassium 3.0 L 4.3 D Chloride 87 L 88 L Carbon Dioxide 45 H* 42 H* BUN 28 H 29 H Creatinine 0.65 0.70 Glucose 115 H 213 H Calcium 8.6 8.7 - ABG Interpretation ABG results: ABG ABG pH 7.53 pH Units (7.32-7.45) H 07/30/16 00:01 ABG pCO2 77 mmHg (35-45) H* 07/30/16 00:01 ABG pO2 73 mmHg (85-104) L 07/30/16 00:01 ABG O2 Saturation 96 % (95-98) 07/30/16 00:01 PT/INR, D-dimer PT 12.3 Seconds (9.4-12.1) H 07/31/16 01:25 - Impressions Impressions Chest X-Ray 07/31/16 07:41 IMPRESSION: Findings of CHF and pulmonary edema have improved. There is mild, persistent bilateral lower lobe airspace disease, which could reflect atelectasis. D/ / 07/31/2016 08:01:59 Sariah Vasquez MD / [facility] Interpreting Provider: Sariah Vasquez MD Consult Discharge Plan - Plan Referrals: Loc James MD [Non-Partnered Physician] - 07/31/16 2:15 pm
--- NOTE | 2016-07-31 15:22 | Palliative - Consult Note ---
Date of Encounter: 07/31/16 Time of Encounter: 15:19 - Assessment and Plan (1) Goals of care, counseling/discussion Current Visit: Yes Status: Acute Assessment and plan: Ms. Dubon is unwilling to cooperate with conversation. I discussed case with her cousin/next of kin-Harpreet Echavarria. He is the only family member that is involved in her care. She does have 2 children who are estranged. Mr. Echavarria is unaware of any existing advanced directives. sales agent business services involved for discharge planning. Medical record from [facility] indicates that she is to be a FULL code. This document was dated 08/10/15. The Palliative Care Team will continue to follow. (2) Acute and chronic respiratory failure with hypoxia Current Visit: Yes Status: Acute Assessment and plan: Plan per hospitalist (3) Atrial fibrillation with RVR Current Visit: Yes Status: Acute Assessment and plan: Cardiology following (4) CHF (congestive heart failure) Current Visit: Yes Status: Acute Assessment and plan: Cardiology following. Qualifiers: Congestive heart failure type: diastolic Congestive heart failure chronicity: acute on chronic Qualified Code(s): I50.33 - Acute on chronic diastolic (congestive) heart failure Palliative-CN HPI - Data of Consult Patient: new to practice Consult date: 07/31/16 Requesting Physician: Harvey Baptiste DO Primary Care Provider: Tommie Quintana MD - Consult Narrative Palliative Care/Comfort Measures: Palliative care Reason for consult: Goals of care History of present illness: Ms. Dubon is a 65 year old female presenting to [facility] from a local [facility] with a cough, difficulty breathing, and a fever. Ms. Dubon was admitted for further work-up and treatment. She was placed on the BIPAP for support, but her respiratory status declined and she required intubation and mechanical ventilation. She was treated in the intensive care unit, and liberated from the ventilator the next day. She was transferred out of the ICU. During her admission, she also developed atrial fibrillation with RVR and symptoms of heart failure. Cardiology was consulted to assist with management. She was placed on a Cardizem drip and later transitioned to oral medications. Ms. Dubon has been declining watermelon inspector anticoagulation. The palliative care team was consulted to assist with goals of care given her complex medical history. During the initial evaluation, Ms. Dubon was unwilling to allow a physical exam and did not cooperate with the interview. She later consented to a focused physical exam, but declined to have a conversation. I was permitted to contact her next of kin listed as her cousin Harpreet Echavarria . He reported that this lack of cooperation is not outside of her normal. Mr. Echavarria assists with some care in regards to needs outside of what the F can offer (such as treats, special toiletries, ect). Mr. Echavarria states that Ms. Dubon does have 2 children, but they are estranged. He is the only family member that is involved in her care. She has been living at [facility] since 07/2015 following a CVA. CC: Harvey Baptiste, DO Past Med Surg Social Fam HX - Past Medical History Source: old records reviewed Medical history: aortic aneurysm, atrial fibrillation (atrial fibrillation as documented from 2012), CHF, COPD, coronary artery disease, hypertension, osteoporosis, sudden cardiac , syncope, valvular heart disease Psychiatric history: no psych history - Past Surgical History Surgical History: coronary bypass (CABG), vascular surgery (AAA repair due to rupture) - Social History Smoking Status: Former smoker Smokeless Tobacco Status: No Alcohol use: none Drug use: none - Family History Mother Living Status: Hx Family Cardiac Disorders: No Hx Family Respiratory Disorders: No Hx Family Cancer: No Hx Family GI Disorders: No Hx Family Neuromuscular Disorders: No Hx Family Neurologic Disorders: Yes (dementia) Hx Family HEENT Disorders: No Hx Family Autoimmune Disorders: No Medications and Allergies Amlodipine [Norvasc] 5 mg PO DAILY 10/11/15 [History] Aspirin 81 mg PO DAILY 10/11/15 [History] Buspirone HCl [Buspar] 10 mg PO BID 10/11/15 [History] Carvedilol [Coreg] 6.25 mg PO BIDWM 10/11/15 [History] Gabapentin [Neurontin] 600 mg PO TID 10/11/15 [History] Isosorbide MONOnitrate (24 HR) [Imdur] 60 mg PO QAM 10/11/15 [History] Losartan Potassium [Cozaar] 100 mg PO DAILY 10/11/15 [History] Multivitamin [One Daily Essential] 1 each PO QAM 10/11/15 [History] Oxybutynin Chloride [Ditropan Xl] 10 mg PO DAILY 10/11/15 [History] Paroxetine [Paxil] 20 mg PO HS 10/11/15 [History] Roflumilast [Daliresp] 500 mcg PO DAILY 10/11/15 [History] Simvastatin [Zocor] 10 mg PO HS 10/11/15 [History] Tiotropium [Spiriva] 18 mcg IH BID 10/11/15 [History] Benzonatate 100 mg PO TID 07/24/16 [History] Calcium Carbonate/Vitamin D3 [Oyster Shell Calcium-Vit D Tab] 1 each PO DAILY [History] Docusate Sodium [Dok] 200 mg PO DAILY PRN 07/24/16 [History] Ferrous Sulfate [Iron] 325 mg PO DAILY 07/24/16 [History] Fluticasone/Salmeterol [Advair Hfa 230-21 Mcg Inhaler] 2 puff IH BID 07/24/16 [ History] Guaifenesin [Mucinex] 600 mg PO BID 07/24/16 [History] Ipratropium/Albuterol Neb [Duoneb] 3 ml IH Q4H 07/24/16 [History] Levalbuterol [Xopenex INH] 2 puff IH QID PRN 07/24/16 [History] Loperamide [Imodium] 2 mg PO DAILY PRN 07/24/16 [History] MethylPREDNISolone [Solu-MEDROL] 125 mg IV DAILY 07/24/16 [History] Omeprazole [PriLOSEC] 20 mg PO DAILY 07/24/16 [History] Potassium Chloride [K-Tab ER] 20 meq PO BID 07/24/16 [History] Sennosides [Senna] 8.6 mg PO DAILY PRN 07/24/16 [History] Allergies acetaminophen [From Vicodin] Allergy (Verified 07/24/16 10:16) Hives codeine Allergy (Verified 07/24/16 10:16) Nausea hydrocodone [From Vicodin] Allergy (Verified 07/24/16 10:16) Hives Oxycodone [From Percocet] Allergy (Verified 07/24/16 10:16) Gastrointestinal Upset propoxyphene [From Darvocet-N] Allergy (Verified 07/24/16 10:16) Gastrointestinal Upset ROS unobtainable: due to mental status (Ms. Dubon does not participate in the interview process to gather health related information. When approached, she pulls her blankets over her mouth and refuses to speak. ) Palliative Care-Exam - Constitutional Vitals: Temp Pulse Resp BP Pulse Ox 98.8 F 86 18 141/77 95 07/31/16 13:00 07/31/16 13:00 07/31/16 13:00 07/31/16 13:00 07/31/16 13:00 Exam: 65 year old female appearing acutely and chronically ill. She is lying in bed watching television. Ms. Dubon is uncooperative with physical exam and resists answering questions or following commands. - Head Head Exam: Present: atraumatic - Eye Eye exam: Present: EOMI - ENT ENT exam: Present: mucous membranes dry - Respiratory Respiratory exam: Present: accessory muscle use, rhonchi. Absent: respiratory distress, tachypnea Additional comments: moist non-productive cough - Cardiovascular Cardiovascular exam: Present: irregular rhythm - GI/Abdominal Exam GI/Abdominal exam: Present: normal bowel sounds, soft. Absent: tenderness - Catheter Type: Urethral (Ha) - Expanded Upper Extremities Exam Forearm wrist exam: Present: ecchymosis - Neurological Exam Neurological exam: Present: alert (oriented to person and place. Does not participate in conversation) - Psychiatric Psychiatric exam: Present: anxious - Skin Skin exam: Present: dry, warm Additional comments: unable to do full skin assessment due to patient's cooperation level. Internal Medicine - CN: Reslt - Labs CBC & Chem 7: 07/31/16 03:28 07/31/16 03:28 Labs: Short CBC 07/30/16 07/30/16 07/31/16 Range/Units 16:25 18:15 03:28 WBC 14.7 H 15.7 H 15.6 H (4.3-11.1) K/mcL Hgb 12.5 12.7 12.0 (11.5-15.4) g/dL Hct 40.5 41.1 38.9 (35.3-44.9) % Plt Count 155 155 153 (140-400) K/mcL Neutrophils # 13.1 H 14.2 H (1.6-8.9) K/mcL BMP 07/30/16 07/31/16 16:25 03:28 Sodium 142 137 Potassium 3.0 L 4.3 D Chloride 87 L 88 L Carbon Dioxide 45 H* 42 H* BUN 28 H 29 H Creatinine 0.65 0.70 Glucose 115 H 213 H Calcium 8.6 8.7 - ABG Interpretation ABG results: ABG ABG pH 7.53 pH Units (7.32-7.45) H 07/30/16 00:01 ABG pCO2 77 mmHg (35-45) H* 07/30/16 00:01 ABG pO2 73 mmHg (85-104) L 07/30/16 00:01 ABG O2 Saturation 96 % (95-98) 07/30/16 00:01 PT/INR, D-dimer PT 12.3 Seconds (9.4-12.1) H 07/31/16 01:25 - Impressions Impressions Chest X-Ray 07/31/16 07:41 IMPRESSION: Findings of CHF and pulmonary edema have improved. There is mild, persistent bilateral lower lobe airspace disease, which could reflect atelectasis. D/ / 07/31/2016 08:01:59 Sariah Vasquez MD / [facility]urel Interpreting Provider: Sariah Vasquez MD Consult Discharge Plan - Plan Referrals: Loc toussaint MD [Non-Partnered Physician] - 07/31/16 2:15 pm Palliative Quality Palliative Quality: Screen for Code Status: No, Screen for Goals of Care: No, Screen for Pain: Yes, If Pain Regimen Started, Initiate Bowel Regimen: No, Screen for Nausea/Vomitting: Yes Code Status: 07/24/16 05:49 Resuscitation Status: Active [RES] Routine Comment: Resuscitation Status: Full Code
[2016-07-31] MEDS: Insulin LISPRO 300 UNITS/3 ML VIAL SQ SCH ×2 (20:29→21:04)
[2016-08-01] MEDS: Levalbuterol Neb 1.25 MG/3 ML IH SCH ×6 (04:57→23:51)
[2016-08-01] MEDS: MethylPREDNISolone 40 MG/ML VIAL IVP SCH (05:34)
[2016-08-01 05:53] LABS: Bilirubin,Urine Negative (Negative); Blood,Urine Small (Negative); Clarity,Urine Cloudy (Clear); Color,Urine Yellow (Yellow); Glucose,Urine (UA) Normal (Normal); Ketones,Urine Negative (Negative); Leukocyte Esterase,Urine Moderate (Negative); Nitrite,Urine Negative (Negative); Protein,Urine 30 mg/dL (Neg-Trace); Specific Gravity,Urine 1.021 (1.010-1.025); Urobilinogen,Urine Normal (Normal)
[2016-08-01 05:56] LABS: Hyaline Casts,Urine Few per lpf (None-Few); Squamous Epithelial Cell,Urine Few per lpf (None-Few); WBC,Urine TNTC per hpf (0-3)
[2016-08-01 06:10] LABS: Bacteria,Urine Few per hpf (None-Few); Renal Epithelial Cells,Urine Few per hpf (None-Few); Yeast,Urine Few per hpf (None Seen)
--- NOTE | 2016-08-01 07:48 | Internal Med Progress Note ---
Date of Encounter: 08/01/16 - Constitutional Vitals: Temp Pulse Resp BP Pulse Ox 97.6 F 81 16 145/78 93 L 08/01/16 04:25 08/01/16 04:25 08/01/16 04:57 08/01/16 04:25 08/01/16 04:57 General appearance: Present: cooperative, disheveled, A&O X 2, mild distress, pleasant Internal Medicine: Result - Labs CBC & Chem 7: 07/31/16 03:28 07/31/16 03:28 Labs: Urine 08/01/16 Range/Units 05:40 Urine Color Yellow (Yellow) Urine Clarity Cloudy A (Clear) Urine pH 7.0 (5.0-8.0) pH Units Ur Specific [place] 1.021 (1.010-1.025) Urine Protein 30 H (Neg-Trace) mg/dL Urine Glucose (UA) Normal (Normal) mg/dL - ABG Interpretation ABG results: ABG ABG pH 7.53 pH Units (7.32-7.45) H 07/30/16 00:01 ABG pCO2 77 mmHg (35-45) H* 07/30/16 00:01 ABG pO2 73 mmHg (85-104) L 07/30/16 00:01 ABG O2 Saturation 96 % (95-98) 07/30/16 00:01 PT/INR, D-dimer PT 12.3 Seconds (9.4-12.1) H 07/31/16 01:25 - Impressions Impressions Chest X-Ray 07/31/16 07:41 IMPRESSION: Findings of CHF and pulmonary edema have improved. There is mild, persistent bilateral lower lobe airspace disease, which could reflect atelectasis. D/ / 07/31/2016 08:01:59 Sariah Vasquez MD / laurel Interpreting Provider: Sariah Vasquez MD Consult Discharge Plan - Plan Referrals: Loc James MD [Non-Partnered Physician] - 07/31/16 2:15 pm
[2016-08-01] MEDS: Insulin LISPRO 300 UNITS/3 ML VIAL SQ SCH ×4 (08:39→22:52)
[2016-08-01] MEDS: Sennosides/Docusate Sodium TABLET PO SCH (08:39)
[2016-08-01] MEDS: Potassium Chloride Elixir 20 MEQ/15 ML UDC PO SCH ×2 (08:41→23:00)
[2016-08-01] MEDS: Furosemide 40 MG TABLET PO SCH (08:41)
[2016-08-01] MEDS: Aspirin 81 MG TAB.CHEW PO SCH (08:41)
[2016-08-01] MEDS: Diltiazem CD (24hr) 120 MG CAPSULE PO SCH (08:41)
[2016-08-01] MEDS: Pantoprazole 40 MG VIAL IVP SCH (08:42)
--- NOTE | 2016-08-01 10:12 | Palliative Progress Note ---
Date of Encounter: 08/01/16 Time of Encounter: 10:09 - Assessment and plan (1) Goals of care, counseling/discussion Current Visit: Yes Status: Acute Assessment and plan: Ms. Dubon was agreeable to answer some "yes" and "no" questions during her exam while being fed her breakfast. She does recall the events of her admission including being on mechanical ventilation in the ICU. Attempted a conversation regarding her future wishes in the event that her respiratory status should decompensate, but she was "too tired" to finish the conversation. Ms. Dubon was agreeable to allow me to return and continue this discussion later this afternoon. Ms. Dubon does not have any existing advanced directives. Her primary contact is her cousin Harpreet Echavarria. Ms. Dubon does have 2 children, but she does not have a relationship with them. She once again confirmed that she would want Harpreet Echavarria to be her primary contact in the event of an emergency. If she regains some strength later today, she would be willing to complete a Healthcare POA and discuss code status further. Update: Follow up conversation with Ms. Dubon at 1500 regarding goals of care and code status. Ms. Dubon repeatedly stated that she wants to go home to [facility]. When we discussed code status, she indicated that she would want FULL CODE in the event of a cardiopulmonary arrest. Ms. Dubon was not interested in hospice care at this time. The Palliative Care team will continue to follow. financial services counselor also following for discharge needs. (2) Acute and chronic respiratory failure with hypoxia Current Visit: Yes Status: Acute Assessment and plan: Management per hospitalist. (3) Atrial fibrillation with RVR Current Visit: Yes Status: Acute Assessment and plan: Cardiology following. (4) CHF (congestive heart failure) Current Visit: Yes Status: Acute Qualifiers: Congestive heart failure type: diastolic Congestive heart failure chronicity: acute on chronic Qualified Code(s): I50.33 - Acute on chronic diastolic (congestive) heart failure - Time Spent With Patient Total time spent is greater than 50% in coordination of care (as documented) at patient's floor/unit and/or counseling patient: - Subjective Interval history: Ms. Dubon is lying in bed. She is uncooperative initially, but minimally participates throughout the exam. She speaks in one to two word sentences due to her difficulty breathing. Ms. Ling states that she about average. At the [facility], she is able to feed herself and do some ADLs like brush her hair. - Constitutional Vitals: Abnormal lab results WBC 15.6 K/mcL (4.3-11.1) H 07/31/16 03:28 MCHC 30.8 g/dL (31.6-35.5) L 07/31/16 03:28 Neutrophils # 14.2 K/mcL (1.6-8.9) H 07/31/16 03:28 Nucleated RBCs/100 WBC 0.1 /100 WBC (0) H 07/30/16 16:25 Immature Plt Fraction 12.3 % (1.1-6.1) H 07/30/16 18:15 PT 12.3 Seconds (9.4-12.1) H 07/31/16 01:25 Heparin Anti-Xa, Unfract 2.10 IU/mL (0.30-0.70) H* 07/30/16 16:25 ABG pH 7.53 pH Units (7.32-7.45) H 07/30/16 00:01 ABG pCO2 77 mmHg (35-45) H* 07/30/16 00:01 ABG pO2 73 mmHg (85-104) L 07/30/16 00:01 ABG HCO3 64.3 mEQ/L (21-27) H 07/30/16 00:01 ABG Total CO2 66.7 mEq/L (20-26) H 07/30/16 00:01 ABG Base Excess 34.8 mEq/L (-2.0 to 3.0) H 07/30/16 00:01 Chloride 88 mEq/L (98-109) L 07/31/16 03:28 Carbon Dioxide 42 mEq/L (19-29) H* 07/31/16 03:28 BUN 29 mg/dL (7-20) H 07/31/16 03:28 BUN/Creatinine Ratio 41 (6-26) H 07/31/16 03:28 Glucose 213 mg/dL (70-99) H 07/31/16 03:28 POC Glucose 148 (58-89) H 08/01/16 08:18 B-Natriuretic Peptide 352 pg/mL (0-100) H 07/29/16 12:45 Serum Total Protein 5.8 g/dL (6.0-8.3) L 07/27/16 03:38 Albumin 2.9 g/dL (3.5-5.0) L 07/27/16 03:38 Albumin/Globulin Ratio 1.0 (1.1-2.2) L 07/27/16 03:38 TSH 0.032 mcIU/mL (0.350-4.840) L 07/29/16 12:45 Urine Clarity Cloudy (Clear) A 08/01/16 05:40 Urine Protein 30 mg/dL (Neg-Trace) H 08/01/16 05:40 Urine Blood Small (Negative) H 08/01/16 05:40 Ur Leukocyte Esterase Moderate (Negative) H 08/01/16 05:40 Urine Microscopic RBC 5-15 per hpf (0-3) H 08/01/16 05:40 Urine Microscopic WBC TNTC per hpf (0-3) H 08/01/16 05:40 Urine Yeast Few per hpf (None Seen) H 08/01/16 05:40 Ur Culture Indicated? YES (NO) A 08/01/16 05:40 Exam: 65 year old female appearing chronically ill. She is minimally cooperative with exam and appears withdrawn. - ENT ENT exam: Present: mucous membranes dry - Respiratory Respiratory exam: Present: accessory muscle use (with conversation), rhonchi, wheezes - Cardiovascular Cardiovascular exam: Present: RRR - GI/Abdominal GI/Abdominal exam: Present: normal bowel sounds, soft. Absent: tenderness - Extremities Exam Extremities exam: Present: normal inspection - Expanded Upper Extremity Exam Forearm wrist exam: Present: ecchymosis - Neurological Exam Neurological exam: Present: alert, oriented X3, no focal deficits, strengths equal and symetr throughout (global weakness) - Psychiatric Psychiatric exam: Present: depressed, flat affect Palliative Quality Palliative Quality: Screen for Code Status: No, Screen for Goals of Care: Yes, Screen for Pain: Yes, If Pain Regimen Started, Initiate Bowel Regimen: No, Screen for Nausea/Vomitting: Yes Code Status: 07/24/16 05:49 Resuscitation Status: Active [RES] Routine Comment: Resuscitation Status: Full Code - Labs CBC & Chem 7: 08/01/16 11:15 08/01/16 11:15 Labs: Laboratory Results - last 24 hr 08/01/16 08/01/16 05:40 08:18 POC Glucose 148 H Urine Color Yellow Urine Clarity Cloudy A Urine pH 7.0 Ur Specific [place] 1.021 Urine Protein 30 H Urine Glucose (UA) Normal Urine Ketones Negative Urine Blood Small H Urine Nitrite Negative Urine Bilirubin Negative Urine Urobilinogen Normal Ur Leukocyte Esterase Moderate H Urine Microscopic RBC 5-15 H Urine Microscopic WBC TNTC H Ur Squamous Epith Cells Few Ur Renal Epithelial Cell Few Urine Bacteria Few Hyaline Casts Few Urine Yeast Few H Ur Culture Indicated? YES A - ABG Interpretation ABG results: ABG ABG pH 7.53 pH Units (7.32-7.45) H 07/30/16 00:01 ABG pCO2 77 mmHg (35-45) H* 07/30/16 00:01 ABG pO2 73 mmHg (85-104) L 07/30/16 00:01 ABG O2 Saturation 96 % (95-98) 07/30/16 00:01 PT/INR, D-dimer PT 12.3 Seconds (9.4-12.1) H 07/31/16 01:25 Consult Discharge Plan - Plan Referrals: Loc James MD [Non-Partnered Physician] - 07/31/16 2:15 pm
[2016-08-01] MEDS: Budesonide/Formoterol 160/4.5 MDI IH SCH ×2 (10:33→20:32)
[2016-08-01] MEDS: Levofloxacin 750 MG/150 ML 750 MG/150 ML BAG IVPB SCH (10:46)
[2016-08-01 11:25] LABS: Basophils % 0.1 %; Hematocrit 39.1 % (35.3-44.9); Hemoglobin 12.1 g/dL (11.5-15.4); Lymphocytes # 0.4 K/mcL (0.6-4.6); Lymphocytes % 2.7 %; Mean Corpuscular HGB Conc 30.9 g/dL (31.6-35.5); Mean Corpuscular Hemoglobin 29.2 pg (28.0-33.3); Mean Corpuscular Volume 94.4 fL (83.0-100.0); Mean Platelet Volume 11.8 fL (9.4-12.4); Monocytes # 0.6 K/mcL (0.0-1.3); Monocytes % 4.2 %; Neutrophils # 12.4 K/mcL (1.6-8.9); Nucleated Red Blood Cells 0.1 /100 WBC (0); Platelet Count 161 K/mcL (140-400); Red Blood Count 4.14 M/mcL (3.82-4.97); Red Cell Distribution Width 13.8 % (11.5-14.5)
[2016-08-01 11:36] LABS: BUN/Creatinine Ratio 36 (6-26); Blood Urea Nitrogen 25 mg/dL (7-20); Calcium 8.7 mg/dL (8.6-10.8); Chloride 88 mEq/L (98-109); Glucose 177 mg/dL (70-99); Osmolality,Calculated 301 (280-300); Sodium 141 mEq/L (136-145); eGFR For African Americans > 60 (> 60); eGFR For Non-African Americans > 60 (> 60)
[2016-08-01 11:41] LABS: Potassium 3.2 mEq/L (3.5-4.5)
[2016-08-01 11:42] LABS: Carbon Dioxide 45 mEq/L (19-29)
--- NOTE | 2016-08-01 15:43 | Internal Med Progress Note ---
Date of Encounter: 08/01/16 Time of Encounter: 15:41 - Assessment and plan (1) Acute diarrhea Current Visit: Yes Status: Acute (2) Dysphagia Current Visit: Yes Status: Acute Qualifiers: Dysphagia type: pharyngoesophageal phase Qualified Code(s): R13.14 - Dysphagia, pharyngoesophageal phase (3) Acute and chronic respiratory failure with hypoxia Current Visit: Yes Status: Acute (4) Atrial fibrillation with RVR Current Visit: Yes Status: Acute (5) COPD exacerbation Current Visit: Yes Status: Acute - Time Spent With Patient Plan with her Calf tenderness will check venous.Will start Lovenox . Continue aerosol treatment. Chest physiotherapy, incentive spirometry, continue modified diet, continue speech therapy,with her physical deconditioning will check 25 hydroxy vitamin D and vitamin B12 . Check stool studyto R/O Infectious diarrhea.Check chest X ray , Replace electrolytes keep potassium more than 4 anf magnesium more than 2 25 - 35 minutes - Subjective Interval history: Patient is complaining of productive cough with clear sputum, shortness of breath at baseline, decreased oral intake secondary to thickened liquids,had 2 loose bowel movement today, - Constitutional Vitals: Temp Pulse Resp BP Pulse Ox 97.7 F 81 16 102/58 91 L 08/01/16 11:40 08/01/16 11:40 08/01/16 11:40 08/01/16 11:40 08/01/16 11:40 General appearance: Present: cooperative, mild distress, pleasant, no acute distress - Head Head exam: Present: atraumatic, normocephalic - Neck Neck exam general surgery: Present: supple, trachea midline. Absent: lymphadenopathy - Respiratory Respiratory exam: Present: decreased breath sounds, prolonged expiratory phase, rales, rhonchi. Absent: accessory muscle use, wheezes - Cardiovascular Cardiovascular exam: Present: RRR, +S1, +S2. Absent: diastolic murmur, gallop, rubs, systolic murmur - GI/Abdominal GI/Abdominal exam: Present: distended, normal bowel sounds, soft, tenderness ( mild diffuse abdominal tenderness), no peritoneal signs - Extremities Exam Extremities exam: Present: calf tenderness (bilateral calf tenderness), warm, radial pulses palpable and symetrical. Absent: cyanotic, pedal edema - Neurological Exam Neurological exam: Present: CN II-XII intact. Absent: pronater drift, facial droop Internal Medicine: Result - Labs CBC & Chem 7: 08/01/16 11:15 08/01/16 11:15 Labs: Short CBC 08/01/16 Range/Units 11:15 WBC 13.5 H (4.3-11.1) K/mcL Hgb 12.1 (11.5-15.4) g/dL Hct 39.1 (35.3-44.9) % Plt Count 161 (140-400) K/mcL Neutrophils # 12.4 H (1.6-8.9) K/mcL BMP 08/01/16 11:15 Sodium 141 Potassium 3.2 L D Chloride 88 L Carbon Dioxide 45 H* BUN 25 H Creatinine 0.69 Glucose 177 H Calcium 8.7 Urine 08/01/16 Range/Units 05:40 Urine Color Yellow (Yellow) Urine Clarity Cloudy A (Clear) Urine pH 7.0 (5.0-8.0) pH Units Ur Specific [place] 1.021 (1.010-1.025) Urine Protein 30 H (Neg-Trace) mg/dL Urine Glucose (UA) Normal (Normal) mg/dL - ABG Interpretation ABG results: ABG ABG pH 7.53 pH Units (7.32-7.45) H 07/30/16 00:01 ABG pCO2 77 mmHg (35-45) H* 07/30/16 00:01 ABG pO2 73 mmHg (85-104) L 07/30/16 00:01 ABG O2 Saturation 96 % (95-98) 07/30/16 00:01 PT/INR, D-dimer PT 12.3 Seconds (9.4-12.1) H 07/31/16 01:25 Consult Discharge Plan - Plan Referrals: [facility] [place],Loc Stafford MD [Non-Partnered Physician] - 07/31/16 2:15 pm
[2016-08-01] MEDS: Thiamine (B-1) 100 MG TABLET PO SCH (16:39)
[2016-08-01] MEDS: *HR* Enoxaparin 40 MG/0.4 ML SYRINGE SQ SCH (16:39)
[2016-08-01] MEDS: Ipratropium Neb 0.5 MG NEBULIZER IH SCH ×3 (16:41→23:51)
[2016-08-01] MEDS: levoFLOXacin 750 MG TABLET PO SCH (16:44)
[2016-08-01 16:47] LABS: Magnesium 1.3 mg/dL (1.6-2.6); Phosphorous 2.6 mg/dL (2.3-4.7)
[2016-08-01 17:15] LABS: Bilirubin,Urine Negative (Negative); Blood,Urine Moderate (Negative); Clarity,Urine Cloudy (Clear); Color,Urine Yellow (Yellow); Glucose,Urine (UA) Normal (Normal); Ketones,Urine Negative (Negative); Leukocyte Esterase,Urine Large (Negative); Nitrite,Urine Negative (Negative); Protein,Urine Negative (Neg-Trace); Specific Gravity,Urine 1.017 (1.010-1.025); Urobilinogen,Urine Normal (Normal)
[2016-08-01 17:18] LABS: Bacteria,Urine None Seen per hpf (None-Few); Squamous Epithelial Cell,Urine Many per lpf (None-Few); WBC,Urine TNTC per hpf (0-3)
[2016-08-01 17:49] LABS: Hyaline Casts,Urine Moderate per lpf (None-Few); Yeast,Urine Many per hpf (None Seen)
[2016-08-01 19:14] LABS: Adenovirus F 40/41 PCR Not detected (Not detect); Astrovirus PCR Not detected (Not detect); C.difficile Toxin A/B by PCR Not detected (Not detect); Campylobacter by PCR Not detected (Not detect); Cryptosporidium by PCR Not detected (Not detect); Cyclospora cayetanensis PCR Not detected (Not detect); E. coli O157 by PCR Not detected (Not detect); Entamoeba histolytica PCR Not detected (Not detect); Enteroaggregative E.coli(EAEC) Not detected (Not detect); Enteropathogenic E.coli(EPEC) Not detected (Not detect); Enterotoxigenic E.coli (ETEC) Not detected (Not detect); Giardia lamblia PCR Not detected (Not detect); Norovirus GI/GII PCR Not detected (Not detect); Plesiomonas shigelloides PCR Not detected (Not detect); Rotavirus A PCR Not detected (Not detect); Salmonella PCR Not detected (Not detect); Sapovirus PCR Not detected (Not detect); Shig/EnteroinvasiveE coli EIEC Not detected (Not detect); Shigalike tox-prod E coli STEC Not detected (Not detect); Vibrio PCR Not detected (Not detect); Vibrio cholerae PCR Not detected (Not detect); Yersinia enterocolitica PCR Not detected (Not detect)
[2016-08-02] MEDS: Ipratropium Neb 0.5 MG NEBULIZER IH SCH ×5 (03:40→21:41)
[2016-08-02] MEDS: Levalbuterol Neb 1.25 MG/3 ML IH SCH ×5 (03:40→21:41)
[2016-08-02 04:40] LABS: Basophils % 0.1 %; Hemoglobin 11.9 g/dL (11.5-15.4); Immature Granulocytes % 0.5 % (0-4); Lymphocytes # 0.7 K/mcL (0.6-4.6); Lymphocytes % 3.4 %; Mean Corpuscular HGB Conc 31.3 g/dL (31.6-35.5); Mean Corpuscular Hemoglobin 29.2 pg (28.0-33.3); Mean Corpuscular Volume 93.1 fL (83.0-100.0); Mean Platelet Volume 11.7 fL (9.4-12.4); Monocytes % 5.4 %; Neutrophils # 17.4 K/mcL (1.6-8.9); Platelet Count 157 K/mcL (140-400); Red Blood Count 4.08 M/mcL (3.82-4.97); Red Cell Distribution Width 13.9 % (11.5-14.5); Segmented Neutrophils % 90.6 %
[2016-08-02 05:10] LABS: BUN/Creatinine Ratio 49 (6-26); Blood Urea Nitrogen 33 mg/dL (7-20); Calcium 8.6 mg/dL (8.6-10.8); Chloride 89 mEq/L (98-109); Glucose 105 mg/dL (70-99); Osmolality,Calculated 304 (280-300); Phosphorous 2.1 mg/dL (2.3-4.7); Potassium 3.1 mEq/L (3.5-4.5); Sodium 143 mEq/L (136-145); eGFR For African Americans > 60 (> 60); eGFR For Non-African Americans > 60 (> 60)
[2016-08-02 05:17] LABS: Carbon Dioxide 45 mEq/L (19-29)
[2016-08-02] MEDS: *HR* Enoxaparin 40 MG/0.4 ML SYRINGE SQ SCH (06:22)
[2016-08-02] MEDS: Budesonide/Formoterol 160/4.5 MDI IH SCH ×2 (07:23→21:41)
[2016-08-02] MEDS: Insulin LISPRO 300 UNITS/3 ML VIAL SQ SCH ×4 (08:18→21:47)
[2016-08-02] MEDS: predniSONE 20 MG TABLET PO SCH ×2 (08:39→08:50)
[2016-08-02] MEDS: Aspirin 81 MG TAB.CHEW PO SCH ×2 (08:39→08:49)
[2016-08-02] MEDS: Furosemide 40 MG TABLET PO SCH ×2 (08:39→08:50)
[2016-08-02] MEDS: Thiamine (B-1) 100 MG TABLET PO SCH ×2 (08:41→08:50)
[2016-08-02] MEDS: levoFLOXacin 750 MG TABLET PO SCH ×2 (08:41→08:50)
[2016-08-02] MEDS: Diltiazem CD (24hr) 120 MG CAPSULE PO SCH ×2 (08:42→08:50)
[2016-08-02] MEDS: Potassium Chloride Elixir 20 MEQ/15 ML UDC PO SCH ×3 (08:42→21:28)
[2016-08-02] MEDS ORDERED: Levofloxacin 750 MG/150 ML 750 MG/150 ML BAG IVPB SCH (10:00)
--- NOTE | 2016-08-02 10:04 | Palliative Progress Note ---
Date of Encounter: 08/02/16 Time of Encounter: 09:30 - Assessment and plan (1) Dyspnea Current Visit: Yes Status: Acute Assessment and plan: Patient CXR with bibasilar atelectasis and appearance of opacities to RML with questioning pneumonia. WBC 19.1 today. Expectorating thick white sputum and loose cough to throat. SOB with coughing. Bedside sat monitor reveals sat of 88 % on 4L NC. Bilateral scattered rhonchi and diminished bases. Plan: 1. Prednisone po 2. Atrovent MDI 3. Supplemental Oxygen 4. IS 5. CDB 6. Mucinex to facilitate expectoration I provided education on using pursed lip breathing and CDB. Provided positioning with HOB up and performing IS hourly x 10. Continue to monitor. (2) Dysphagia Current Visit: No Status: Acute Assessment and plan: Patient tolerated pureed diet and thickened drink when feeding patient. Patient was actively participating in pharyngeal exercises per speech therapy but refused yesterday. Patient will eat if hand fed. I facilitated feeding the patient this morning until she reported being done. Educated the patient on the importance of participating in therapy to facilitate eating. Verbalized understanding. Qualifiers: Dysphagia type: pharyngoesophageal phase Qualified Code(s): R13.14 - Dysphagia, pharyngoesophageal phase (3) Pain Current Visit: Yes Status: Acute Assessment and plan: Patient c/o pain by shaking her head when questioned but would not provide details about type or intensity of pain, she just shakes her head. Medication review of morphine IV with no doses given. Educated patient that it would assist with healing and comfort to take comfort medications. She shakes her head no when questioned as to why she will not take any medications. She did verbalize that she desires to go home and I explained to her that to do that that she would need to participate in her POC. She just rolled her eyes. Allergies noted to numerous medications. Plan: 1. position for comfort 2. add motrin for comfort (4) Goals of care, counseling/discussion Current Visit: No Status: Acute Assessment and plan: Patient is Full code and desires to return to [facility] upon DC. Will assess family support and level of involvement. (5) Urinary frequency Current Visit: No Status: Chronic Assessment and plan: Patient with avelar catheter in place and draining dark yellow urine. + urine culture for yeast. Recommend adding fluconazole. - Time Spent With Patient Total time spent is greater than 50% in coordination of care (as documented) at patient's floor/unit and/or counseling patient: 25 - 35 minutes - Subjective Interval history: Patient in bed, morning meal at bedside. Patient calm, when questioned about any discomfort she shakes her head yes. I offered medications to facilitate comfort but she shakes her head no and rolls her eyes. I questioned her about having left hip pain and once again she shakes her head yes. I educated her on the benefits of taking a pain pill. I assisted the patient with her breakfast and she tolerated eating her pureed diet without coughing. Patient on contact precautions for positive nasal MRSA screen on 07/05/16. Chart reviewed and assessment complete. - Constitutional Vitals: Abnormal lab results WBC 19.2 K/mcL (4.3-11.1) H 08/02/16 04:15 MCHC 31.3 g/dL (31.6-35.5) L 08/02/16 04:15 Neutrophils # 17.4 K/mcL (1.6-8.9) H 08/02/16 04:15 Nucleated RBCs/100 WBC 0.1 /100 WBC (0) H 08/01/16 11:15 Immature Plt Fraction 12.3 % (1.1-6.1) H 07/30/16 18:15 PT 12.3 Seconds (9.4-12.1) H 07/31/16 01:25 Heparin Anti-Xa, Unfract 2.10 IU/mL (0.30-0.70) H* 07/30/16 16:25 ABG pH 7.53 pH Units (7.32-7.45) H 07/30/16 00:01 ABG pCO2 77 mmHg (35-45) H* 07/30/16 00:01 ABG pO2 73 mmHg (85-104) L 07/30/16 00:01 ABG HCO3 64.3 mEQ/L (21-27) H 07/30/16 00:01 ABG Total CO2 66.7 mEq/L (20-26) H 07/30/16 00:01 ABG Base Excess 34.8 mEq/L (-2.0 to 3.0) H 07/30/16 00:01 Potassium 3.1 mEq/L (3.5-4.5) L 08/02/16 04:15 Chloride 89 mEq/L (98-109) L 08/02/16 04:15 Carbon Dioxide 45 mEq/L (19-29) H* 08/02/16 04:15 BUN 33 mg/dL (7-20) H 08/02/16 04:15 BUN/Creatinine Ratio 49 (6-26) H 08/02/16 04:15 Glucose 105 mg/dL (70-99) H 08/02/16 04:15 POC Glucose 155 (58-89) H 08/01/16 21:21 Calculated Osmolality 304 (280-300) H 08/02/16 04:15 Phosphorus 2.1 mg/dL (2.3-4.7) L 08/02/16 04:15 Magnesium 1.0 mg/dL (1.6-2.6) L 08/02/16 04:15 B-Natriuretic Peptide 352 pg/mL (0-100) H 07/29/16 12:45 Serum Total Protein 5.8 g/dL (6.0-8.3) L 07/27/16 03:38 Albumin 2.9 g/dL (3.5-5.0) L 07/27/16 03:38 Albumin/Globulin Ratio 1.0 (1.1-2.2) L 07/27/16 03:38 Vitamin B12 1132 pg/mL (213-816) H 08/02/16 04:15 TSH 0.032 mcIU/mL (0.350-4.840) L 07/29/16 12:45 Urine Clarity Cloudy (Clear) A 08/01/16 16:20 Urine Blood Moderate (Negative) H 08/01/16 16:20 Ur Leukocyte Esterase Large (Negative) H 08/01/16 16:20 Urine Microscopic RBC 3-5 per hpf (0-3) H 08/01/16 16:20 Urine Microscopic WBC TNTC per hpf (0-3) H 08/01/16 16:20 Ur Squamous Epith Cells Many per lpf (None-Few) H 08/01/16 16:20 Hyaline Casts Moderate per lpf (None-Few) H 08/01/16 16:20 Urine Yeast Many per hpf (None Seen) H 08/01/16 16:20 Ur Culture Indicated? YES (NO) A 08/01/16 16:20 - Head Head exam: Present: atraumatic, normal inspection, normocephalic - Eye Eye exam: Present: PERRL Pupils: Present: PERRL - ENT ENT exam: Present: mucous membranes moist - Neck Neck exam: Present: normal inspection - Respiratory Respiratory exam: Present: prolonged expiratory phase - Expanded Respiratory Exam Location: decreased breath sounds: Left, Right, Lower, rhonchi: Left, Right, Upper (scattered) - Cardiovascular Cardiovascular exam: Present: irregular rhythm, +S1, +S2 - Expanded Cardiovascular Exam Peripheral pulses: 1+: Femoral (L) PM, Femoral (R) PM, Posterior Tibialis (L), Posterior Tibialis (R), 2+: Carotid (L) PM, Carotid (R) PM, Radial (L), Radial ( R), Dorsalis Pedis (L) PM, Dorsalis Pedis (R) PM - GI/Abdominal GI/Abdominal exam: Present: normal bowel sounds, soft - Rectal Rectal exam: Present: deferred - Extremities Exam Extremities exam: Present: normal capillary refill, normal inspection Additional comments: bilateral legs pink and warm. C/O tenderness to touch bilaterally. NO edema noted. - Expanded Lower Extremity Exam Hip exam: Present: tenderness (left hip) - Neurological Exam Neurological exam: Present: alert (speech low, shakes head yes or no and rolls eyes. points to desired food or drink) - Psychiatric Psychiatric exam: Present: flat affect - Skin Skin exam: Present: pallor, warm Palliative Quality Palliative Quality: Screen for Code Status: No, Screen for Goals of Care: Yes, Screen for Pain: Yes, If Pain Regimen Started, Initiate Bowel Regimen: No, Screen for Nausea/Vomitting: Yes Code Status: 07/24/16 05:49 Resuscitation Status: Active [RES] Routine Comment: Resuscitation Status: Full Code - Labs CBC & Chem 7: 08/02/16 04:15 08/02/16 04:15 Labs: Laboratory Results - last 24 hr 08/01/16 08/01/16 08/01/16 11:15 11:15 11:15 WBC 13.5 H RBC 4.14 Hgb 12.1 Hct 39.1 MCV 94.4 MCH 29.2 MCHC 30.9 L RDW 13.8 Plt Count 161 MPV 11.8 Immature Gran % 1.0 Seg Neutrophils % 92.0 Lymphocytes % 2.7 Monocytes % 4.2 Eosinophils % 0.0 Basophils % 0.1 Neutrophils # 12.4 H Lymphocytes # 0.4 L Monocytes # 0.6 Eosinophils # 0.0 Basophils # 0.0 Nucleated RBCs/100 WBC 0.1 H Sodium 141 Potassium 3.2 L D Chloride 88 L Carbon Dioxide 45 H* BUN 25 H Creatinine 0.69 Est GFR ( Amer) > 60 Est GFR (Non-Af Amer) > 60 BUN/Creatinine Ratio 36 H Glucose 177 H POC Glucose 159 H Calculated Osmolality 301 H Calcium 8.7 Phosphorus Magnesium Vitamin B12 Urine Color Urine Clarity Urine pH Ur Specific [place] Urine Protein Urine Glucose (UA) Urine Ketones Urine Blood Urine Nitrite Urine Bilirubin Urine Urobilinogen Ur Leukocyte Esterase Urine Microscopic RBC Urine Microscopic WBC Ur Squamous Epith Cells Urine Bacteria Hyaline Casts Urine Yeast Ur Culture Indicated? Stl C. cayetanensis PCR Stool Rotavirus A PCR Stl Adenov F 40/41 PCR Stool Astrovirus (PCR) Stool Campylobacter PCR Stl C. diff Tox A/B PCR Stool Cryptosporidium PCR Stl Sh Tox Pr E STEC PCR Stool E coli O157 PCR Stl Enterotoxigenic E PCR Stool EPEC (PCR) Stool EAEC (PCR) Stl E. histolytica PCR Stool Giardia Lamblia PCR Stool Salmonella PCR Stool Sapovirus (PCR) Stl P. shigelloides PCR Stl Shigella/EIEC PCR St Y.enterocolitica PCR Stool Vibrio (PCR) Stl Vibrio cholerae PCR Stl Norovirus GI/GII PCR Stl GI Panel (PCR) Com 08/01/16 08/01/16 08/01/16 11:15 15:58 16:20 WBC RBC Hgb Hct MCV MCH MCHC RDW Plt Count MPV Immature Gran % Seg Neutrophils % Lymphocytes % Monocytes % Eosinophils % Basophils % Neutrophils # Lymphocytes # Monocytes # Eosinophils # Basophils # Nucleated RBCs/100 WBC Sodium Potassium Chloride Carbon Dioxide BUN Creatinine Est GFR ( Amer) Est GFR (Non-Af Amer) BUN/Creatinine Ratio Glucose POC Glucose 163 H Calculated Osmolality Calcium Phosphorus 2.6 Magnesium 1.3 L Vitamin B12 Urine Color Yellow Urine Clarity Cloudy A Urine pH 6.0 Ur Specific [place] 1.017 Urine Protein Negative Urine Glucose (UA) Normal Urine Ketones Negative Urine Blood Moderate H Urine Nitrite Negative Urine Bilirubin Negative Urine Urobilinogen Normal Ur Leukocyte Esterase Large H Urine Microscopic RBC 3-5 H Urine Microscopic WBC TNTC H Ur Squamous Epith Cells Many H Urine Bacteria None Seen Hyaline Casts Moderate H Urine Yeast Many H Ur Culture Indicated? YES A Stl C. cayetanensis PCR Stool Rotavirus A PCR Stl Adenov PCR Stool Astrovirus (PCR) Stool Campylobacter PCR Stl C. diff Tox A/B PCR Stool Cryptosporidium PCR Stl Sh Tox Pr E STEC PCR Stool E coli O157 PCR Stl Enterotoxigenic E PCR Stool EPEC (PCR) Stool EAEC (PCR) Stl E. histolytica PCR Stool Giardia Lamblia PCR Stool Salmonella PCR Stool Sapovirus (PCR) Stl P. shigelloides PCR Stl Shigella/EIEC PCR St Y.enterocolitica PCR Stool Vibrio (PCR) Stl Vibrio cholerae PCR Stl Norovirus GI/GII PCR Stl GI Panel (PCR) Com 08/01/16 08/01/16 08/02/16 16:20 21:21 04:15 WBC 19.2 H RBC 4.08 Hgb 11.9 Hct 38.0 MCV 93.1 MCH 29.2 MCHC 31.3 L RDW 13.9 Plt Count 157 MPV 11.7 Immature Gran % 0.5 Seg Neutrophils % 90.6 Lymphocytes % 3.4 Monocytes % 5.4 Eosinophils % 0.0 Basophils % 0.1 Neutrophils # 17.4 H Lymphocytes # 0.7 Monocytes # 1.0 Eosinophils # 0.0 Basophils # 0.0 Nucleated RBCs/100 WBC Sodium Potassium Chloride Carbon Dioxide BUN Creatinine Est GFR ( Amer) Est GFR (Non-Af Amer) BUN/Creatinine Ratio Glucose POC Glucose 155 H Calculated Osmolality Calcium Phosphorus Magnesium Vitamin B12 Urine Color Urine Clarity Urine pH Ur Specific [place] Urine Protein Urine Glucose (UA) Urine Ketones Urine Blood Urine Nitrite Urine Bilirubin Urine Urobilinogen Ur Leukocyte Esterase Urine Microscopic RBC Urine Microscopic WBC Ur Squamous Epith Cells Urine Bacteria Hyaline Casts Urine Yeast Ur Culture Indicated? Stl C. cayetanensis PCR Not detected Stool Rotavirus A PCR Not detected Stl Adenov PCR Not detected Stool Astrovirus (PCR) Not detected Stool Campylobacter PCR Not detected Stl C. diff Tox A/B PCR Not detected Stool Cryptosporidium PCR Not detected Stl Sh Tox Pr E STEC PCR Not detected Stool E coli O157 PCR Not detected Stl Enterotoxigenic E PCR Not detected Stool EPEC (PCR) Not detected Stool EAEC (PCR) Not detected Stl E. histolytica PCR Not detected Stool Giardia Lamblia PCR Not detected Stool Salmonella PCR Not detected Stool Sapovirus (PCR) Not detected Stl P. shigelloides PCR Not detected Stl Shigella/EIEC PCR Not detected St Y.enterocolitica PCR Not detected Stool Vibrio (PCR) Not detected Stl Vibrio cholerae PCR Not detected Stl Norovirus GI/GII PCR Not detected Stl GI Panel (PCR) Com See below 08/02/16 08/02/16 04:15 04:15 WBC RBC Hgb Hct MCV MCH MCHC RDW Plt Count MPV Immature Gran % Seg Neutrophils % Lymphocytes % Monocytes % Eosinophils % Basophils % Neutrophils # Lymphocytes # Monocytes # Eosinophils # Basophils # Nucleated RBCs/100 WBC Sodium 143 Potassium 3.1 L Chloride 89 L Carbon Dioxide 45 H* BUN 33 H Creatinine 0.67 Est GFR ( Amer) > 60 Est GFR (Non-Af Amer) > 60 BUN/Creatinine Ratio 49 H Glucose 105 H POC Glucose Calculated Osmolality 304 H Calcium 8.6 Phosphorus 2.1 L Magnesium 1.0 L Vitamin B12 1132 H Urine Color Urine Clarity Urine pH Ur Specific [place] Urine Protein Urine Glucose (UA) Urine Ketones Urine Blood Urine Nitrite Urine Bilirubin Urine Urobilinogen Ur Leukocyte Esterase Urine Microscopic RBC Urine Microscopic WBC Ur Squamous Epith Cells Urine Bacteria Hyaline Casts Urine Yeast Ur Culture Indicated? Stl C. cayetanensis PCR Stool Rotavirus A PCR Stl Adenov F 40/41 PCR Stool Astrovirus (PCR) Stool Campylobacter PCR Stl C. diff Tox A/B PCR Stool Cryptosporidium PCR Stl Sh Tox Pr E STEC PCR Stool E coli O157 PCR Stl Enterotoxigenic E PCR Stool EPEC (PCR) Stool EAEC (PCR) Stl E. histolytica PCR Stool Giardia Lamblia PCR Stool Salmonella PCR Stool Sapovirus (PCR) Stl P. shigelloides PCR Stl Shigella/EIEC PCR St Y.enterocolitica PCR Stool Vibrio (PCR) Stl Vibrio cholerae PCR Stl Norovirus GI/GII PCR Stl GI Panel (PCR) Com - Impressions Impressions Chest X-Ray 08/01/16 15:50 IMPRESSION: 1. Question opacities within the right middle lobe concerning for pneumonia. 2. Bibasilar atelectasis. D/ / Salomon Jones MD / Salomon Jones MD Interpreting Provider: Salomon Jones MD - ABG Interpretation ABG results: ABG ABG pH 7.53 pH Units (7.32-7.45) H 07/30/16 00:01 ABG pCO2 77 mmHg (35-45) H* 07/30/16 00:01 ABG pO2 73 mmHg (85-104) L 07/30/16 00:01 ABG O2 Saturation 96 % (95-98) 07/30/16 00:01 PT/INR, D-dimer PT 12.3 Seconds (9.4-12.1) H 07/31/16 01:25 Consult Discharge Plan - Plan Referrals: [facility],Loc Stafford MD [Non-Partnered Physician] - 07/31/16 2:15 pm
[2016-08-02] MEDS ORDERED: Ibuprofen 400 MG TABLET PO PRN (10:32)
[2016-08-02] MEDS ORDERED: Potassium Phosphate 44 MEQ in 0.9 % Sodium Chloride 250 ML IVPB ONE (13:28)
[2016-08-02] MEDS ORDERED: Magnesium Sulfate 2 GM in D5% in Water 100 ML IVPB ONE ×2 (13:30→15:00)
--- NOTE | 2016-08-02 13:33 | Internal Med Progress Note ---
Date of Encounter: 08/02/16 Time of Encounter: 13:33 - Assessment and plan (1) Acute diarrhea Current Visit: Yes Status: Acute Assessment and plan: Resolved (2) Dysphagia Current Visit: No Status: Acute Assessment and plan: Continue speech therapy Qualifiers: Dysphagia type: pharyngoesophageal phase Qualified Code(s): R13.14 - Dysphagia, pharyngoesophageal phase (3) Acute and chronic respiratory failure with hypoxia Current Visit: Yes Status: Acute Assessment and plan: secondary to aspiration pneumonia, will add zosyn , MRSA screening positive will add vancomycin, sputum culture and gram stain (4) Atrial fibrillation with RVR Current Visit: Yes Status: Acute (5) COPD exacerbation Current Visit: Yes Status: Acute (6) Hip pain, right Current Visit: Yes Status: Acute Assessment and plan: add lidoderm patch - Time Spent With Patient I had a meeting with embedded case manager, social services assistant ,RN and palliative care counselling on plan of care . counseling about plan of care Greater than 35 minutes - Subjective Interval history: patient continued to have shortness of breath, oxygen saturation dropped to 85% . Hard to get rid of her phlegm. she is complaining of right hip pain. Patient is depressed, markedly decreased oral intake - Constitutional Vitals: Temp Pulse Resp BP Pulse Ox 98.4 F 79 20 149/83 86 L 08/02/16 07:40 08/02/16 07:40 08/02/16 11:09 08/02/16 07:40 08/02/16 11:09 General appearance: Present: mild distress - Head Head exam: Present: atraumatic, normocephalic - Neck Neck exam general surgery: Present: supple, trachea midline. Absent: lymphadenopathy - Respiratory Respiratory exam: Present: accessory muscle use, decreased breath sounds, prolonged expiratory phase, wheezes. Absent: rales, rhonchi - Cardiovascular Cardiovascular exam: Present: RRR, +S1, +S2. Absent: diastolic murmur, gallop, rubs, systolic murmur - GI/Abdominal GI/Abdominal exam: Present: distended, normal bowel sounds, soft, tenderness ( mildly diffuse abdominal tenderness), no peritoneal signs - Extremities Exam Extremities exam: Present: warm, radial pulses palpable and symetrical. Absent : calf tenderness, cyanotic, pedal edema - Neurological Exam Neurological exam: Present: CN II-XII intact, oriented X3, no focal deficits. Absent: pronater drift, facial droop, speech deficit - Skin Skin exam: Present: dry, intact Internal Medicine: Result - Labs CBC & Chem 7: 08/02/16 04:15 08/02/16 04:15 Labs: Short CBC 08/02/16 Range/Units 04:15 WBC 19.2 H (4.3-11.1) K/mcL Hgb 11.9 (11.5-15.4) g/dL Hct 38.0 (35.3-44.9) % Plt Count 157 (140-400) K/mcL Neutrophils # 17.4 H (1.6-8.9) K/mcL BMP 08/02/16 04:15 Sodium 143 Potassium 3.1 L Chloride 89 L Carbon Dioxide 45 H* BUN 33 H Creatinine 0.67 Glucose 105 H Calcium 8.6 Urine 08/01/16 Range/Units 16:20 Urine Color Yellow (Yellow) Urine Clarity Cloudy A (Clear) Urine pH 6.0 (5.0-8.0) pH Units Ur Specific [place] 1.017 (1.010-1.025) Urine Protein Negative (Neg-Trace) mg/dL Urine Glucose (UA) Normal (Normal) mg/dL - ABG Interpretation ABG results: ABG ABG pH 7.53 pH Units (7.32-7.45) H 07/30/16 00:01 ABG pCO2 77 mmHg (35-45) H* 07/30/16 00:01 ABG pO2 73 mmHg (85-104) L 07/30/16 00:01 ABG O2 Saturation 96 % (95-98) 07/30/16 00:01 PT/INR, D-dimer PT 12.3 Seconds (9.4-12.1) H 07/31/16 01:25 - Impressions Impressions Chest X-Ray 08/01/16 15:50 IMPRESSION: 1. Question opacities within the right middle lobe concerning for pneumonia. 2. Bibasilar atelectasis. D/ / Salomon Jones MD / Salomon Jones MD Interpreting Provider: Salomon Jones MD Consult Discharge Plan - Plan Referrals: Erika,Loc Stafford MD [Non-Partnered Physician] - 07/31/16 2:15 pm
[2016-08-02] MEDS: Lactobacillus 1 EACH CAP.SPRINK PO SCH (14:16)
--- NOTE | 2016-08-02 15:43 | Event Note ---
Date of Encounter: 08/02/16 Time of Encounter: 15:00 Conducted bedside meeting with Anna Monaco, Bait Maker, MITZI Bazzi, Chaplain Hernan, and Dr. Nice. Patient has become increasingly noncompliant today with refusing medications and care. Attempted to reach NOK but reported to be working and unable to attend meeting. Patient alert and able to verbalize desires of wanting to return to [facility]. I explained to her that her CXR revealed Pneumonia and her urine showed infection. Educated her on the need to take antibiotics and participate in care to return to ECF. Dr. Shankar explained disease process and need for medications. Patient states that she will agree to take medications and participate in POC.
[2016-08-02] MEDS ORDERED: Piperacillin/Tazobactam 3.375 GM in D5% in Water (Mini-Bag+) 100 ML IVPB SCH (16:00)
[2016-08-02] MEDS: *HR* OxyCODONE Immed Rel 5 MG TABLET PO SCH (16:04)
--- NOTE | 2016-08-02 18:48 | Venous Imaging Report ---
LE Venous Duplex Patient Name:Ana Dubon Order Number:[id number] Procedure Date:08/02/2016 Date:1950Age:65 yrs Gender:Female Location:[facility] Room #: Senior Accounting Clerk:Vikki Soto T, [facility] Referring MD:Amy Nice MD heel emery buffer:None Reading MD:Etienne Kumar MD , FACS Primary Indications:Leg pain Secondary Indications: Risk Factors Yes/No Anticoagulants Yes Impressions: Bilateral lower extremity: normal superficial and deep exam. Findings Venous Duplex Results: Right: Venous imaging of the lower extremity reveals full patency and normal vessel compressibility of the right distal iliac, right common femoral, right superficial femoral, right popliteal, right posterior tibial, right peroneal, right great saphenous and right lesser saphenous. Doppler signals in the evaluated veins were normal. Left: Venous imaging of the lower extremity reveals full patency and normal vessel compressibility of the left distal iliac, left common femoral, left superficial femoral, left popliteal, left posterior tibial, left peroneal, left great saphenous and left lesser saphenous. Doppler signals in the evaluated veins were normal. Prior Study: No prior study available for comparison. Lower Extremity Venous Duplex Side Vein Compress Spontaneous Flow Augment Diameter (cm) Depth (cm) Right Distal Iliac Normal Yes Phasic Yes Right Common Femoral Normal Yes Phasic Yes Right Superficial Femoral Normal Yes Phasic Yes Right Popliteal Normal Yes Phasic Yes Right Posterior Tibial Normal Yes Phasic Yes Right Peroneal Normal Yes Phasic Yes Right Great Saphenous Normal Yes Phasic Yes Right Lesser Saphenous Normal Yes Phasic Yes Left Distal Iliac Normal Yes Phasic Yes Left Common Femoral Normal Yes Phasic Yes Left Superficial Femoral Normal Yes Phasic Yes Left Popliteal Normal Yes Phasic Yes Left Posterior Tibial Normal Yes Phasic Yes Left Peroneal Normal Yes Phasic Yes Left Great Saphenous Normal Yes Phasic Yes Left Lesser Saphenous Normal Yes Phasic Yes Updated by Etienne Kumar MD, FACS on 08/02/2016 6:45:06 PM Etienne Kumar MD electronically signed on 08/02/2016 6:45:32 PM with status of Final
[2016-08-02] MEDS ORDERED: Vancomycin 750 MG in D5% in Water 250 ML IVPB SCH (20:00)
[2016-08-02] MEDS: Piperacillin/Tazobactam 3.375 GM in D5% in Water (Mini-Bag+) 100 ML IVPB SCH (21:20)
[2016-08-02] MEDS: Vancomycin 750 MG in D5% in Water 250 ML IVPB SCH (21:22)
[2016-08-02] MEDS: Mirtazapine 15 MG TABLET PO SCH (21:25)
[2016-08-03] MEDS: Ipratropium Neb 0.5 MG NEBULIZER IH SCH ×7 (00:08→23:26)
[2016-08-03] MEDS: Levalbuterol Neb 1.25 MG/3 ML IH SCH ×8 (00:09→23:26)
[2016-08-03] MEDS: *HR* OxyCODONE Immed Rel 5 MG TABLET PO SCH ×4 (00:15→23:46)
[2016-08-03 05:02] LABS: Basophils % 0.2 %; Eosinophils % 0.2 %; Hematocrit 38.2 % (35.3-44.9); Hemoglobin 12.1 g/dL (11.5-15.4); Immature Granulocytes % 0.5 % (0-4); Lymphocytes % 4.6 %; Mean Corpuscular HGB Conc 31.7 g/dL (31.6-35.5); Mean Corpuscular Hemoglobin 29.9 pg (28.0-33.3); Mean Corpuscular Volume 94.3 fL (83.0-100.0); Monocytes % 2.8 %; Platelet Count 158 K/mcL (140-400); Red Blood Count 4.05 M/mcL (3.82-4.97); Red Cell Distribution Width 14.1 % (11.5-14.5); Segmented Neutrophils % 91.7 %
[2016-08-03 05:03] LABS: Lymphocytes # 0.9 K/mcL (0.6-4.6); Monocytes # 0.5 K/mcL (0.0-1.3); Neutrophils # 17.6 K/mcL (1.6-8.9); Nucleated Red Blood Cells 0.1 /100 WBC (0)
[2016-08-03 05:22] LABS: BUN/Creatinine Ratio 41 (6-26); Blood Urea Nitrogen 30 mg/dL (7-20); Calcium 8.7 mg/dL (8.6-10.8); Chloride 92 mEq/L (98-109); Glucose 130 mg/dL (70-99); Osmolality,Calculated 306 (280-300); Potassium 3.3 mEq/L (3.5-4.5); Sodium 144 mEq/L (136-145); eGFR For African Americans > 60 (> 60); eGFR For Non-African Americans > 60 (> 60)
[2016-08-03 05:27] LABS: Phosphorous 3.7 mg/dL (2.3-4.7)
[2016-08-03 05:30] LABS: Carbon Dioxide 44 mEq/L (19-29)
[2016-08-03] MEDS: *HR* Enoxaparin 40 MG/0.4 ML SYRINGE SQ SCH (06:02)
[2016-08-03] MEDS: Piperacillin/Tazobactam 3.375 GM in D5% in Water (Mini-Bag+) 100 ML IVPB SCH ×3 (06:27→20:40)
[2016-08-03] MEDS: Budesonide/Formoterol 160/4.5 MDI IH SCH ×2 (07:46→19:39)
[2016-08-03] MEDS: Insulin LISPRO 300 UNITS/3 ML VIAL SQ SCH ×4 (08:17→20:42)
[2016-08-03] MEDS: Lactobacillus 1 EACH CAP.SPRINK PO SCH (11:18)
[2016-08-03] MEDS: Aspirin 81 MG TAB.CHEW PO SCH (11:18)
[2016-08-03] MEDS: Furosemide 40 MG TABLET PO SCH (11:19)
[2016-08-03] MEDS: Diltiazem CD (24hr) 120 MG CAPSULE PO SCH (11:19)
[2016-08-03] MEDS: levoFLOXacin 750 MG TABLET PO SCH (11:19)
[2016-08-03] MEDS: Vancomycin 750 MG in D5% in Water 250 ML IVPB SCH ×2 (11:20→20:39)
[2016-08-03] MEDS: Potassium Chloride Elixir 20 MEQ/15 ML UDC PO SCH ×2 (11:22→20:42)
[2016-08-03] MEDS: methylPREDNISolone 125 MG/2 ML VIAL IVP SCH ×2 (11:23→16:40)
[2016-08-03] MEDS: Thiamine (B-1) 100 MG TABLET PO SCH (11:23)
--- NOTE | 2016-08-03 13:13 | Internal Med Progress Note ---
Date of Encounter: 08/03/16 Time of Encounter: 13:10 - Assessment and plan (1) Acute and chronic respiratory failure with hypoxia Current Visit: Yes Status: Acute Assessment and plan: repeat CXR shows possible pneumonia, elevated leucocytosis. was restarted on vanco and zosyn yesterday by DR. Nice MRSA screening positive will obtain sputum culture and gram stain today will order CT chest. continue to titrate o2 to maintain sats >88% seen by speech , swallowig eval done and has modified diet order, assisted feeding. will start IV methylpred today at 60 q8hr (2) CAD (coronary artery disease) of artery bypass graft Current Visit: No Status: Chronic Assessment and plan: Patient has a history of coronary artery disease with previous history of CABG, current home medications include simvastatin 10 mg by mouth at bedtime. Plan: - Continue her home dose simvastatin 10 mg at bedtime. - Continue amlodipine and Coreg and losartan 100 mg daily - Continue aspirin. Qualifiers: [place] vs. transplanted heart: [place] heart Associated angina: without angina Qualified Code(s): I25.810 - Atherosclerosis of coronary artery bypass graft(s) without angina pectoris (3) Hypertension Current Visit: No Status: Chronic Assessment and plan: BP stable. continue the current meds. Qualifiers: Hypertension type: essential hypertension Qualified Code(s): I10 - Essential (primary) hypertension (4) CHF (congestive heart failure) Current Visit: Yes Status: Acute Assessment and plan: diastolic CHF< last ECHO 07/13 showed moderate DD. will continue the lasix for now. normal LVEF as per ECHO studies as per cardio, she had episode of MAT which was when she was started on cardizem. Qualifiers: Congestive heart failure type: diastolic Congestive heart failure chronicity: acute on chronic Qualified Code(s): I50.33 - Acute on chronic diastolic (congestive) heart failure - Time Spent With Patient 25 - 35 minutes - Subjective Interval history: 65 y/o admitted for acute respiratory failure secondary to COPD exacerbation, needed intubation and status post extubation on 07/26/16, Transferred from ICU 07/27, seen at the bedside in the morning. hospital stay complicated by episodes of MAT and acute pulmonary edema tip has been refusing medications for the last 2 days and has not received steroids since . this morning she sounds very congested, in mild respiratory distress and is on 6 l of o2 satg 91-92% palliative is on board, she is fully oriented to TPP and she desires to remain full code. - Constitutional Vitals: Temp Pulse Resp BP Pulse Ox 98.6 F 100 16 122/78 91 L 08/03/16 10:53 08/03/16 10:53 08/03/16 10:53 08/03/16 10:53 08/03/16 10:53 General appearance: Present: mild distress Exam: neck -supple chest- coarse expiratory creptns, mild wheezing cvs-s1 and s2, regular, no mr//g abd-soft, mildly distended, bs are heard, non tender ext- no edema neuro- alert and awake, no focal deficits. Internal Medicine: Result - Labs CBC & Chem 7: 08/03/16 04:16 08/03/16 04:16 Labs: Short CBC 08/03/16 Range/Units 04:16 WBC 19.1 H (4.3-11.1) K/mcL Hgb 12.1 (11.5-15.4) g/dL Hct 38.2 (35.3-44.9) % Plt Count 158 (140-400) K/mcL Neutrophils # 17.6 H (1.6-8.9) K/mcL BMP 08/03/16 04:16 Sodium 144 Potassium 3.3 L Chloride 92 L Carbon Dioxide 44 H* BUN 30 H Creatinine 0.73 Glucose 130 H Calcium 8.7 - ABG Interpretation ABG results: ABG ABG pH 7.53 pH Units (7.32-7.45) H 07/30/16 00:01 ABG pCO2 77 mmHg (35-45) H* 07/30/16 00:01 ABG pO2 73 mmHg (85-104) L 07/30/16 00:01 ABG O2 Saturation 96 % (95-98) 07/30/16 00:01 PT/INR, D-dimer PT 12.3 Seconds (9.4-12.1) H 07/31/16 01:25 Consult Discharge Plan - Plan [place] [facility] [place] [Non-Partnered Physician] - 07/31/16 2:15 pm
[2016-08-03] MEDS: Magnesium Oxide 400 MG TABLET PO SCH (20:41)
[2016-08-03] MEDS: Mirtazapine 15 MG TABLET PO SCH (20:41)
[2016-08-04] MEDS: methylPREDNISolone 125 MG/2 ML VIAL IVP SCH ×3 (03:39→18:44)
[2016-08-04] MEDS: Levalbuterol Neb 1.25 MG/3 ML IH SCH ×6 (03:51→23:40)
[2016-08-04] MEDS: Ipratropium Neb 0.5 MG NEBULIZER IH SCH ×6 (03:51→23:40)
[2016-08-04] MEDS: Piperacillin/Tazobactam 3.375 GM in D5% in Water (Mini-Bag+) 100 ML IVPB SCH ×3 (05:37→20:58)
[2016-08-04] MEDS: *HR* Enoxaparin 40 MG/0.4 ML SYRINGE SQ SCH (05:38)
[2016-08-04] MEDS: Potassium Chloride Elixir 20 MEQ/15 ML UDC PO SCH ×2 (07:52→08:38)
[2016-08-04] MEDS: levoFLOXacin 750 MG TABLET PO SCH (07:53)
[2016-08-04] MEDS: Furosemide 40 MG TABLET PO SCH (07:53)
[2016-08-04] MEDS: Diltiazem CD (24hr) 120 MG CAPSULE PO SCH (07:54)
[2016-08-04] MEDS: *HR* OxyCODONE Immed Rel 5 MG TABLET PO SCH ×2 (07:54→16:58)
[2016-08-04] MEDS: Aspirin 81 MG TAB.CHEW PO SCH (07:54)
[2016-08-04] MEDS: Lactobacillus 1 EACH CAP.SPRINK PO SCH (07:54)
[2016-08-04] MEDS: Thiamine (B-1) 100 MG TABLET PO SCH (07:54)
[2016-08-04] MEDS: Insulin LISPRO 300 UNITS/3 ML VIAL SQ SCH ×3 (07:55→16:59)
[2016-08-04] MEDS: Magnesium Oxide 400 MG TABLET PO SCH ×2 (07:55→20:57)
[2016-08-04] MEDS: Vancomycin 750 MG in D5% in Water 250 ML IVPB SCH ×2 (07:55→19:53)
[2016-08-04] MEDS: Budesonide/Formoterol 160/4.5 MDI IH SCH ×2 (08:17→19:56)
[2016-08-04 10:00] LABS: Basophils % 0.1 %; Hematocrit 32.9 % (35.3-44.9); Immature Granulocytes % 0.6 % (0-4); Lymphocytes # 0.4 K/mcL (0.6-4.6); Lymphocytes % 2.6 %; Mean Corpuscular Hemoglobin 29.5 pg (28.0-33.3); Mean Corpuscular Volume 95.1 fL (83.0-100.0); Mean Platelet Volume 11.9 fL (9.4-12.4); Monocytes # 0.2 K/mcL (0.0-1.3); Monocytes % 1.1 %; Neutrophils # 15.6 K/mcL (1.6-8.9); Platelet Count 144 K/mcL (140-400); Red Blood Count 3.46 M/mcL (3.82-4.97); Red Cell Distribution Width 14.2 % (11.5-14.5); Segmented Neutrophils % 95.6 %
[2016-08-04 10:01] LABS: Hemoglobin 10.2 g/dL (11.5-15.4)
[2016-08-04 10:12] LABS: BUN/Creatinine Ratio 31 (6-26); Blood Urea Nitrogen 25 mg/dL (7-20); Calcium 7.9 mg/dL (8.6-10.8); Chloride 91 mEq/L (98-109); Glucose 198 mg/dL (70-99); Osmolality,Calculated 298 (280-300); Potassium 3.1 mEq/L (3.5-4.5); Sodium 139 mEq/L (136-145); eGFR For African Americans > 60 (> 60); eGFR For Non-African Americans > 60 (> 60)
--- NOTE | 2016-08-04 10:15 | Palliative Progress Note ---
Date of Encounter: 08/04/16 Time of Encounter: 10:13 - Assessment and plan (1) Goals of care, counseling/discussion Current Visit: No Status: Acute Assessment and plan: Ms. Dubon was open to discussion today. She continues to insist upon discharge to [facility]. Discussed that she is not medically ready due to her oxygen requirements and dyspnea that is still above baseline. She is quite obstinate in conversation. She once again confirms that she would like to continue with aggressive care and FULL CODE stats. director dental services following for discharge needs. (2) Acute and chronic respiratory failure with hypoxia Current Visit: Yes Status: Acute Assessment and plan: Management per hospitalist. (3) Atrial fibrillation with RVR Current Visit: Yes Status: Acute Assessment and plan: Cardiology recommendations in place. (4) CHF (congestive heart failure) Current Visit: Yes Status: Acute Qualifiers: Congestive heart failure type: diastolic Congestive heart failure chronicity: acute on chronic Qualified Code(s): I50.33 - Acute on chronic diastolic (congestive) heart failure (5) Yeast dermatitis Current Visit: Yes Status: Acute Assessment and plan: Yeast dermatitis noted to groin folds. Folds are erythematous with satellite lesions noted. Skin is sloughing off in spots. Will start Nystatin powder TID and monitor. - Time Spent With Patient Total time spent is greater than 50% in coordination of care (as documented) at patient's floor/unit and/or counseling patient: - Subjective Interval history: Ms. Dubon is lying in bed. She is just finishing her morning meal. Her bowels are moving and her pain is at baseline. - Constitutional Vitals: Abnormal lab results WBC 16.3 K/mcL (4.3-11.1) H 08/04/16 09:50 RBC 3.46 M/mcL (3.82-4.97) L 08/04/16 09:50 Hgb 10.2 g/dL (11.5-15.4) L D 08/04/16 09:50 Hct 32.9 % (35.3-44.9) L 08/04/16 09:50 MCHC 31.0 g/dL (31.6-35.5) L 08/04/16 09:50 Neutrophils # 15.6 K/mcL (1.6-8.9) H 08/04/16 09:50 Lymphocytes # 0.4 K/mcL (0.6-4.6) L 08/04/16 09:50 Nucleated RBCs/100 WBC 0.1 /100 WBC (0) H 08/03/16 04:16 Immature Plt Fraction 11.0 % (1.1-6.1) H 08/04/16 09:50 PT 12.3 Seconds (9.4-12.1) H 07/31/16 01:25 Heparin Anti-Xa, Unfract 2.10 IU/mL (0.30-0.70) H* 07/30/16 16:25 ABG pH 7.53 pH Units (7.32-7.45) H 07/30/16 00:01 ABG pCO2 77 mmHg (35-45) H* 07/30/16 00:01 ABG pO2 73 mmHg (85-104) L 07/30/16 00:01 ABG HCO3 64.3 mEQ/L (21-27) H 07/30/16 00:01 ABG Total CO2 66.7 mEq/L (20-26) H 07/30/16 00:01 ABG Base Excess 34.8 mEq/L (-2.0 to 3.0) H 07/30/16 00:01 Potassium 3.3 mEq/L (3.5-4.5) L 08/03/16 04:16 Chloride 92 mEq/L (98-109) L 08/03/16 04:16 Carbon Dioxide 44 mEq/L (19-29) H* 08/03/16 04:16 BUN 30 mg/dL (7-20) H 08/03/16 04:16 BUN/Creatinine Ratio 41 (6-26) H 08/03/16 04:16 Glucose 130 mg/dL (70-99) H 08/03/16 04:16 POC Glucose 195 (58-89) H 08/03/16 20:36 Calculated Osmolality 306 (280-300) H 08/03/16 04:16 B-Natriuretic Peptide 352 pg/mL (0-100) H 07/29/16 12:45 Serum Total Protein 5.8 g/dL (6.0-8.3) L 07/27/16 03:38 Albumin 2.9 g/dL (3.5-5.0) L 07/27/16 03:38 Albumin/Globulin Ratio 1.0 (1.1-2.2) L 07/27/16 03:38 Vitamin B12 1132 pg/mL (213-816) H 08/02/16 04:15 25-OH Vitamin D Total 22 ng/mL (30-80) L 08/02/16 04:15 TSH 0.032 mcIU/mL (0.350-4.840) L 07/29/16 12:45 Urine Clarity Cloudy (Clear) A 08/01/16 16:20 Urine Blood Moderate (Negative) H 08/01/16 16:20 Ur Leukocyte Esterase Large (Negative) H 08/01/16 16:20 Urine Microscopic RBC 3-5 per hpf (0-3) H 08/01/16 16:20 Urine Microscopic WBC TNTC per hpf (0-3) H 08/01/16 16:20 Ur Squamous Epith Cells Many per lpf (None-Few) H 08/01/16 16:20 Hyaline Casts Moderate per lpf (None-Few) H 08/01/16 16:20 Urine Yeast Many per hpf (None Seen) H 08/01/16 16:20 Ur Culture Indicated? YES (NO) A 08/01/16 16:20 General appearance: Present: cooperative, no acute distress Exam: 65 year old female appearing chronically ill. She is obstinate at baseline, but cooperates with coaching. - ENT ENT exam: Present: mucous membranes moist - Respiratory Respiratory exam: Present: decreased breath sounds, rhonchi Additional comments: moist non-productive cough, O2 at 5 L per nasal cannula with oxygen saturations ranging 90-93%. Conversational dyspnea has improved greatly from my assessment 2 days ago. - Cardiovascular Cardiovascular exam: Present: RRR - GI/Abdominal GI/Abdominal exam: Present: normal bowel sounds, soft. Absent: tenderness - Rectal Rectal exam: Present: tenderness - External exam: Present: erythema (erythema with satellite lesions noted ) - Extremities Exam Extremities exam: Present: normal inspection - Expanded Upper Extremity Exam Forearm wrist exam: Present: ecchymosis - Neurological Exam Neurological exam: Present: alert, oriented X3, no focal deficits, strengths equal and symetr throughout (generalized weakness noted) - Skin Skin exam: Present: dry, warm Additional comments: two vesicles noted to left upper buttock/sacral region, intact, clear fluid. - Expanded Skin Exam Body image: 1 - vesicles x2, intact Palliative Quality Palliative Quality: Screen for Code Status: Yes, Screen for Goals of Care: Yes, Screen for Pain: Yes, If Pain Regimen Started, Initiate Bowel Regimen: No, Screen for Nausea/Vomitting: Yes Code Status: 07/24/16 05:49 Resuscitation Status: Active [RES] Routine Comment: Resuscitation Status: Full Code - Labs CBC & Chem 7: 08/04/16 09:50 08/03/16 04:16 Labs: Laboratory Results - last 24 hr 08/03/16 08/03/16 08/03/16 07:29 10:42 15:12 WBC RBC Hgb Hct MCV MCH MCHC RDW Plt Count MPV Immature Gran % Seg Neutrophils % Lymphocytes % Monocytes % Eosinophils % Basophils % Neutrophils # Lymphocytes # Monocytes # Eosinophils # Basophils # Immature Plt Fraction POC Glucose 111 H 172 H 167 H Vancomycin Trough 08/03/16 08/04/16 08/04/16 20:36 06:47 09:50 WBC 16.3 H RBC 3.46 L Hgb 10.2 L D Hct 32.9 L MCV 95.1 MCH 29.5 MCHC 31.0 L RDW 14.2 Plt Count 144 MPV 11.9 Immature Gran % 0.6 Seg Neutrophils % 95.6 Lymphocytes % 2.6 Monocytes % 1.1 Eosinophils % 0.0 Basophils % 0.1 Neutrophils # 15.6 H Lymphocytes # 0.4 L Monocytes # 0.2 Eosinophils # 0.0 Basophils # 0.0 Immature Plt Fraction 11.0 H POC Glucose 195 H Vancomycin Trough 17.3 - Impressions Impressions Chest X-Ray 07/31/16 07:41 IMPRESSION: Findings of CHF and pulmonary edema have improved. There is mild, persistent bilateral lower lobe airspace disease, which could reflect atelectasis. D/ / 07/31/2016 08:01:59 Sariah Vasquez MD / [facility] Interpreting Provider: Sariah Vasquez MD Chest CT 08/03/16 10:17 IMPRESSION: Left lower lobe collapse. Patchy multifocal bilateral consolidation is seen in addition, in keeping with multifocal pneumonia. Follow-up to complete resolution is recommended. Trace bilateral pleural effusions. Atherosclerosis, including coronary artery calcification. Hyperdense lesion at the posterior margin of the left kidney is slightly greater than prior exam dated 08/07/2015. Hemorrhagic cyst or carcinoma are considerations. In the nonacute setting, renal protocol CT could be performed for further characterization. D/ / Devendra Quijano MD / Devendra Quijano MD Interpreting Provider: Devendra Quijano MD - ABG Interpretation ABG results: ABG ABG pH 7.53 pH Units (7.32-7.45) H 07/30/16 00:01 ABG pCO2 77 mmHg (35-45) H* 07/30/16 00:01 ABG pO2 73 mmHg (85-104) L 07/30/16 00:01 ABG O2 Saturation 96 % (95-98) 07/30/16 00:01 PT/INR, D-dimer PT 12.3 Seconds (9.4-12.1) H 07/31/16 01:25 Consult Discharge Plan - Plan Referrals: [facility] [place] [Non-Partnered Physician] - 07/31/16 2:15 pm
[2016-08-04 10:16] LABS: Carbon Dioxide 40 mEq/L (19-29)
[2016-08-04] MEDS ORDERED: Potassium Chloride 40 MEQ, Lidocaine 1% 2 ML in D5% in Water 500 ML IVPB ONE ×2 (12:00→16:00)
[2016-08-04] MEDS: Nystatin POWDER 30 GM BOTTLE TP SCH ×3 (12:03→20:58)
--- NOTE | 2016-08-04 13:21 | Internal Med Progress Note ---
Date of Encounter: 08/04/16 Time of Encounter: 13:19 - Assessment and plan (1) Acute and chronic respiratory failure with hypoxia Current Visit: Yes Status: Acute Assessment and plan: chest done yesterday showed left lower lobe collapse with multifocal pneumonia. clinically better today but s till has significant dyspnea at rest. We will continue IV antibiotics and IV steroids at this time. continue to titrate o2 to maintain sats >88%, oxygen requirement has decreased to 5 L today. seen by speech , swallowig eval done and has modified diet order, assisted feeding. will continue conservative mx for gino pneumonia and the lung collapse with Iv antibotics, aggressive chest physio, acapella tx and incentive spirometry. will consult pulmonary if fails to improve. (2) CAD (coronary artery disease) of artery bypass graft Current Visit: No Status: Chronic Assessment and plan: Patient has a history of coronary artery disease with previous history of CABG, current home medications include simvastatin 10 mg by mouth at bedtime. Plan: - Continue her home dose simvastatin 10 mg at bedtime. - Continue amlodipine and Coreg and losartan 100 mg daily - Continue aspirin. Qualifiers: [place] vs. transplanted heart: [place] heart Associated angina: without angina Qualified Code(s): I25.810 - Atherosclerosis of coronary artery bypass graft(s) without angina pectoris (3) Hypertension Current Visit: No Status: Chronic Assessment and plan: BP stable. continue the current meds. Qualifiers: Hypertension type: essential hypertension Qualified Code(s): I10 - Essential (primary) hypertension (4) CHF (congestive heart failure) Current Visit: Yes Status: Acute Assessment and plan: diastolic CHF< last ECHO 07/13 showed moderate DD. will continue the lasix for now. normal LVEF as per ECHO studies as per cardio, she had episode of MAT which was when she was started on cardizem. Qualifiers: Congestive heart failure type: diastolic Congestive heart failure chronicity: acute on chronic Qualified Code(s): I50.33 - Acute on chronic diastolic (congestive) heart failure - Time Spent With Patient 25 - 35 minutes - Subjective Interval history: 65 y/o admitted for acute respiratory failure secondary to COPD exacerbation, needed intubation and status post extubation on 07/26/16, Transferred from ICU 07/27, seen at the bedside in the morning. hospital stay complicated by episodes of MAT and acute pulmonary edema tip has been non comliant with the medical treatment and has been refusing therapy. this morning she sounds better, much alert and sats are better with 5 l . palliative is on board, she is fully oriented to TPP and she desires to remain full code. - Constitutional Vitals: Temp Pulse Resp BP Pulse Ox 98.8 F 77 16 121/97 95 08/04/16 11:48 08/04/16 11:48 08/04/16 11:48 08/04/16 11:48 08/04/16 11:48 General appearance: Present: mild distress Exam: neck -supple chest- coarse expiratory creptns, mild wheezing cvs-s1 and s2, regular, no mr//g abd-soft, mildly distended, bs are heard, non tender ext- no edema neuro- alert and awake, no focal deficits. Internal Medicine: Result - Labs CBC & Chem 7: 08/04/16 09:50 08/04/16 09:50 Labs: Short CBC 08/04/16 Range/Units 09:50 WBC 16.3 H (4.3-11.1) K/mcL Hgb 10.2 L D (11.5-15.4) g/dL Hct 32.9 L (35.3-44.9) % Plt Count 144 (140-400) K/mcL Neutrophils # 15.6 H (1.6-8.9) K/mcL BMP 08/04/16 09:50 Sodium 139 Potassium 3.1 L Chloride 91 L Carbon Dioxide 40 H* BUN 25 H Creatinine 0.81 Glucose 198 H Calcium 7.9 L - ABG Interpretation ABG results: ABG ABG pH 7.53 pH Units (7.32-7.45) H 07/30/16 00:01 ABG pCO2 77 mmHg (35-45) H* 07/30/16 00:01 ABG pO2 73 mmHg (85-104) L 07/30/16 00:01 ABG O2 Saturation 96 % (95-98) 07/30/16 00:01 PT/INR, D-dimer PT 12.3 Seconds (9.4-12.1) H 07/31/16 01:25 - Impressions Impressions Chest X-Ray 07/31/16 07:41 IMPRESSION: Findings of CHF and pulmonary edema have improved. There is mild, persistent bilateral lower lobe airspace disease, which could reflect atelectasis. D/ / 07/31/2016 08:01:59 Sariah Vasquez MD / [place] Interpreting Provider: Sariah Vasquez MD Chest CT 08/03/16 10:17 IMPRESSION: Left lower lobe collapse. Patchy multifocal bilateral consolidation is seen in addition, in keeping with multifocal pneumonia. Follow-up to complete resolution is recommended. Trace bilateral pleural effusions. Atherosclerosis, including coronary artery calcification. Hyperdense lesion at the posterior margin of the left kidney is slightly greater than prior exam dated 08/07/2015. Hemorrhagic cyst or carcinoma are considerations. In the nonacute setting, renal protocol CT could be performed for further characterization. D/ / Devendra Quijano MD / Devendra Quijano MD Interpreting Provider: Devendra Quijano MD Consult Discharge Plan - Plan Referrals: [facility] – [place] MD [Non-Partnered Physician] - 07/31/16 2:15 pm
[2016-08-04] MEDS: Mirtazapine 15 MG TABLET PO SCH (20:57)
[2016-08-05] MEDS: Insulin LISPRO 300 UNITS/3 ML VIAL SQ SCH ×5 (01:17→21:05)
[2016-08-05] MEDS: *HR* OxyCODONE Immed Rel 5 MG TABLET PO SCH ×3 (01:17→17:34)
[2016-08-05] MEDS: methylPREDNISolone 125 MG/2 ML VIAL IVP SCH ×3 (03:38→17:33)
[2016-08-05] MEDS: Levalbuterol Neb 1.25 MG/3 ML IH SCH ×6 (04:22→23:17)
[2016-08-05] MEDS: Ipratropium Neb 0.5 MG NEBULIZER IH SCH ×6 (04:22→23:17)
[2016-08-05] MEDS: Piperacillin/Tazobactam 3.375 GM in D5% in Water (Mini-Bag+) 100 ML IVPB SCH ×3 (04:38→21:05)
[2016-08-05] MEDS: *HR* Enoxaparin 40 MG/0.4 ML SYRINGE SQ SCH (05:41)
[2016-08-05] MEDS: Budesonide/Formoterol 160/4.5 MDI IH SCH ×2 (08:12→20:01)
[2016-08-05 08:22] LABS: Basophils % 0.1 %; Hematocrit 34.4 % (35.3-44.9); Hemoglobin 10.8 g/dL (11.5-15.4); Immature Granulocytes % 0.6 % (0-4); Lymphocytes # 0.6 K/mcL (0.6-4.6); Lymphocytes % 3.2 %; Mean Corpuscular HGB Conc 31.4 g/dL (31.6-35.5); Mean Corpuscular Hemoglobin 29.8 pg (28.0-33.3); Mean Platelet Volume 11.2 fL (9.4-12.4); Monocytes # 0.5 K/mcL (0.0-1.3); Monocytes % 2.8 %; Neutrophils # 16.2 K/mcL (1.6-8.9); Platelet Count 155 K/mcL (140-400); Red Blood Count 3.62 M/mcL (3.82-4.97); Red Cell Distribution Width 14.1 % (11.5-14.5); Segmented Neutrophils % 93.3 %
[2016-08-05 08:34] LABS: BUN/Creatinine Ratio 31 (6-26); Blood Urea Nitrogen 24 mg/dL (7-20); Calcium 8.5 mg/dL (8.6-10.8); Carbon Dioxide 39 mEq/L (19-29); Chloride 91 mEq/L (98-109); Glucose 133 mg/dL (70-99); Osmolality,Calculated 294 (280-300); Potassium 3.9 mEq/L (3.5-4.5); Sodium 139 mEq/L (136-145); eGFR For African Americans > 60 (> 60); eGFR For Non-African Americans > 60 (> 60)
[2016-08-05] MEDS: Diltiazem CD (24hr) 120 MG CAPSULE PO SCH (08:48)
[2016-08-05] MEDS: Lactobacillus 1 EACH CAP.SPRINK PO SCH (08:49)
[2016-08-05] MEDS: Aspirin 81 MG TAB.CHEW PO SCH (08:49)
[2016-08-05] MEDS: Thiamine (B-1) 100 MG TABLET PO SCH (08:49)
[2016-08-05] MEDS: Vancomycin 750 MG in D5% in Water 250 ML IVPB SCH ×2 (08:50→21:05)
[2016-08-05] MEDS: Magnesium Oxide 400 MG TABLET PO SCH ×2 (08:50→21:03)
[2016-08-05] MEDS: Furosemide 40 MG TABLET PO SCH (08:50)
[2016-08-05] MEDS: Nystatin POWDER 30 GM BOTTLE TP SCH ×3 (08:51→21:04)
--- NOTE | 2016-08-05 17:12 | Internal Med Progress Note ---
Date of Encounter: 08/05/16 Time of Encounter: 17:10 - Assessment and plan (1) Acute and chronic respiratory failure with hypoxia Current Visit: Yes Status: Acute Assessment and plan: chest CT done showed left lower lobe collapse with multifocal pneumonia. clinically better today but s till has significant dyspnea at rest. We will continue IV antibiotics and IV steroids at this time. continue to titrate o2 to maintain sats >88%, oxygen requirement has decreased to 3- 5 L today. seen by speech , swallowig eval done and has modified diet order, assisted feeding. will continue conservative mx for gino pneumonia and the lung collapse with Iv antibotics, aggressive chest physio, acapella tx and incentive spirometry. will consult pulmonary if fails to improve. leucocytosis seems to be 2/2 steroids. (2) CAD (coronary artery disease) of artery bypass graft Current Visit: No Status: Chronic Assessment and plan: Patient has a history of coronary artery disease with previous history of CABG, current home medications include simvastatin 10 mg by mouth at bedtime. Plan: - Continue her home dose simvastatin 10 mg at bedtime. - Continue amlodipine and Coreg and losartan 100 mg daily - Continue aspirin. Qualifiers: [place] vs. transplanted heart: [place] heart Associated angina: without angina Qualified Code(s): I25.810 - Atherosclerosis of coronary artery bypass graft(s) without angina pectoris (3) Hypertension Current Visit: No Status: Chronic Assessment and plan: BP stable. continue the current meds. Qualifiers: Hypertension type: essential hypertension Qualified Code(s): I10 - Essential (primary) hypertension (4) CHF (congestive heart failure) Current Visit: Yes Status: Acute Assessment and plan: diastolic CHF< last ECHO 07/13 showed moderate DD. will continue the lasix for now. normal LVEF as per ECHO studies as per cardio, she had episode of MAT which was when she was started on cardizem. Qualifiers: Congestive heart failure type: diastolic Congestive heart failure chronicity: acute on chronic Qualified Code(s): I50.33 - Acute on chronic diastolic (congestive) heart failure - Time Spent With Patient 25 - 35 minutes - Subjective Interval history: 65 y/o admitted for acute respiratory failure secondary to COPD exacerbation, needed intubation and status post extubation on 07/26/16, Transferred from ICU 07/27, seen at the bedside in the morning. hospital stay complicated by episodes of MAT and acute pulmonary edema clinically better however still sob, o2 requirement 3-5 l palliative is on board, she is fully oriented to TPP and she desires to remain full code. - Constitutional Vitals: Temp Pulse Resp BP Pulse Ox 98.2 F 88 18 112/74 91 L 08/05/16 15:16 08/05/16 15:16 08/05/16 16:49 08/05/16 15:16 08/05/16 16:49 General appearance: Present: mild distress, A&O X 3 Exam: neck -supple chest-mild expiratory creptns,no wheezing cvs-s1 and s2, regular, no mr//g abd-soft, mildly distended, bs are heard, non tender ext- no edema neuro- alert and awake, no focal deficits. Internal Medicine: Result - Labs CBC & Chem 7: 08/05/16 08:05 08/05/16 08:05 Labs: Short CBC 08/05/16 Range/Units 08:05 WBC 17.4 H (4.3-11.1) K/mcL Hgb 10.8 L (11.5-15.4) g/dL Hct 34.4 L (35.3-44.9) % Plt Count 155 (140-400) K/mcL Neutrophils # 16.2 H (1.6-8.9) K/mcL BMP 08/05/16 08:05 Sodium 139 Potassium 3.9 Chloride 91 L Carbon Dioxide 39 H BUN 24 H Creatinine 0.78 Glucose 133 H Calcium 8.5 L - ABG Interpretation ABG results: ABG ABG pH 7.53 pH Units (7.32-7.45) H 07/30/16 00:01 ABG pCO2 77 mmHg (35-45) H* 07/30/16 00:01 ABG pO2 73 mmHg (85-104) L 07/30/16 00:01 ABG O2 Saturation 96 % (95-98) 07/30/16 00:01 PT/INR, D-dimer PT 12.3 Seconds (9.4-12.1) H 07/31/16 01:25 Consult Discharge Plan - Plan Referrals: [facility],Loc Stafford MD [Non-Partnered Physician] - 07/31/16 2:15 pm
[2016-08-05] MEDS: Mirtazapine 15 MG TABLET PO SCH (21:04)
[2016-08-06] MEDS: *HR* OxyCODONE Immed Rel 5 MG TABLET PO SCH ×3 (00:37→16:57)
[2016-08-06] MEDS: methylPREDNISolone 125 MG/2 ML VIAL IVP SCH (01:44)
[2016-08-06] MEDS: Ipratropium Neb 0.5 MG NEBULIZER IH SCH ×6 (04:40→23:42)
[2016-08-06] MEDS: Levalbuterol Neb 1.25 MG/3 ML IH SCH ×6 (04:40→23:42)
[2016-08-06] MEDS: Piperacillin/Tazobactam 3.375 GM in D5% in Water (Mini-Bag+) 100 ML IVPB SCH (05:11)
[2016-08-06] MEDS: *HR* Enoxaparin 40 MG/0.4 ML SYRINGE SQ SCH (06:26)
[2016-08-06] MEDS: Budesonide/Formoterol 160/4.5 MDI IH SCH ×2 (08:30→20:01)
[2016-08-06] MEDS: Aspirin 81 MG TAB.CHEW PO SCH (08:39)
[2016-08-06] MEDS: Magnesium Oxide 400 MG TABLET PO SCH ×2 (08:39→22:12)
[2016-08-06] MEDS: Lactobacillus 1 EACH CAP.SPRINK PO SCH (08:40)
[2016-08-06] MEDS: Thiamine (B-1) 100 MG TABLET PO SCH (08:40)
[2016-08-06] MEDS: Diltiazem CD (24hr) 120 MG CAPSULE PO SCH (08:40)
[2016-08-06] MEDS: Vancomycin 750 MG in D5% in Water 250 ML IVPB SCH (08:41)
[2016-08-06] MEDS: Furosemide 40 MG TABLET PO SCH (08:41)
[2016-08-06] MEDS: Insulin LISPRO 300 UNITS/3 ML VIAL SQ SCH ×4 (08:42→22:12)
[2016-08-06] MEDS: Nystatin POWDER 30 GM BOTTLE TP SCH ×3 (08:43→22:12)
[2016-08-06] MEDS: MethylPREDNISolone 40 MG/ML VIAL IVP SCH ×2 (09:59→16:56)
[2016-08-06 10:30] LABS: Basophils % 0.1 %; Hematocrit 32.8 % (35.3-44.9); Hemoglobin 10.2 g/dL (11.5-15.4); Immature Granulocytes % 0.8 % (0-4); Lymphocytes # 0.4 K/mcL (0.6-4.6); Lymphocytes % 3.1 %; Mean Corpuscular HGB Conc 31.1 g/dL (31.6-35.5); Mean Corpuscular Hemoglobin 29.5 pg (28.0-33.3); Mean Corpuscular Volume 94.8 fL (83.0-100.0); Mean Platelet Volume 11.2 fL (9.4-12.4); Monocytes # 0.3 K/mcL (0.0-1.3); Monocytes % 2.5 %; Neutrophils # 11.1 K/mcL (1.6-8.9); Platelet Count 166 K/mcL (140-400); Red Blood Count 3.46 M/mcL (3.82-4.97); Red Cell Distribution Width 13.9 % (11.5-14.5); Segmented Neutrophils % 93.5 %
[2016-08-06 10:38] LABS: BUN/Creatinine Ratio 36 (6-26); Blood Urea Nitrogen 27 mg/dL (7-20); Calcium 8.2 mg/dL (8.6-10.8); Chloride 90 mEq/L (98-109); Glucose 220 mg/dL (70-99); Osmolality,Calculated 300 (280-300); Potassium 3.1 mEq/L (3.5-4.5); Sodium 139 mEq/L (136-145); eGFR For African Americans > 60 (> 60); eGFR For Non-African Americans > 60 (> 60)
[2016-08-06 10:41] LABS: Carbon Dioxide 41 mEq/L (19-29)
[2016-08-06] MEDS ORDERED: Potassium Chloride 40 MEQ, Lidocaine 1% 2 ML in D5% in Water 500 ML IVPB ONE (11:45)
--- NOTE | 2016-08-06 15:09 | Internal Med Progress Note ---
Date of Encounter: 08/06/16 Time of Encounter: 15:06 - Assessment and plan (1) Acute and chronic respiratory failure with hypoxia Current Visit: Yes Status: Acute Assessment and plan: chest CT done showed left lower lobe collapse with multifocal pneumonia. clinically better today and looks much comfortable. We will continue IV antibiotics and start tapering IV steroids at this time. continue to titrate o2 to maintain sats >88%, oxygen requirement has decreased to 3- 5 L today. seen by speech , swallowig eval done and has modified diet order, assisted feeding. will continue conservative mx for gino pneumonia and the lung collapse with Iv antibotics, aggressive chest physio, acapella tx and incentive spirometry. will consult pulmonary if fails to improve. leucocytosis seems to have improved. (2) CAD (coronary artery disease) of artery bypass graft Current Visit: No Status: Chronic Assessment and plan: Patient has a history of coronary artery disease with previous history of CABG, current home medications include simvastatin 10 mg by mouth at bedtime. Plan: - Continue her home dose simvastatin 10 mg at bedtime. - Continue amlodipine and Coreg and losartan 100 mg daily - Continue aspirin. Qualifiers: [place] vs. transplanted heart: [place] heart Associated angina: without angina Qualified Code(s): I25.810 - Atherosclerosis of coronary artery bypass graft(s) without angina pectoris (3) Hypertension Current Visit: No Status: Chronic Assessment and plan: BP stable. continue the current meds. Qualifiers: Hypertension type: essential hypertension Qualified Code(s): I10 - Essential (primary) hypertension (4) CHF (congestive heart failure) Current Visit: Yes Status: Acute Assessment and plan: diastolic CHF< last ECHO 07/13 showed moderate DD. will continue the lasix for now. normal LVEF as per ECHO studies as per cardio, she had episode of MAT which was when she was started on cardizem. Qualifiers: Congestive heart failure type: diastolic Congestive heart failure chronicity: acute on chronic Qualified Code(s): I50.33 - Acute on chronic diastolic (congestive) heart failure - Time Spent With Patient 25 - 35 minutes - Subjective Interval history: 65 y/o admitted for acute respiratory failure secondary to COPD exacerbation, needed intubation and status post extubation on 07/26/16, Transferred from ICU 07/27, seen at the bedside in the morning. hospital stay complicated by episodes of MAT and acute pulmonary edema appears somewhat drwosy today, however wakes up and does know where she is and recognizes people,, however clinically better , o2 requirement 3-5 l palliative is on board, she is fully oriented to TPP and she desires to remain full code. - Constitutional Vitals: Temp Pulse Resp BP Pulse Ox 98.3 F 58 16 113/62 98 08/06/16 11:45 08/06/16 11:45 08/06/16 11:55 08/06/16 11:55 08/06/16 11:55 General appearance: Present: A&O X 3 Exam: neck -supple chest-no creptns, no wheezing , sounds a lot better cvs-s1 and s2, regular, no mr//g abd-soft, mildly distended, bs are heard, non tender ext- no edema neuro- alert and awake, no focal deficits. Internal Medicine: Result - Labs CBC & Chem 7: 08/06/16 10:20 08/06/16 10:20 Labs: Short CBC 08/06/16 Range/Units 10:20 WBC 11.8 H (4.3-11.1) K/mcL Hgb 10.2 L (11.5-15.4) g/dL Hct 32.8 L (35.3-44.9) % Plt Count 166 (140-400) K/mcL Neutrophils # 11.1 H (1.6-8.9) K/mcL BMP 08/06/16 10:20 Sodium 139 Potassium 3.1 L Chloride 90 L Carbon Dioxide 41 H* BUN 27 H Creatinine 0.74 Glucose 220 H Calcium 8.2 L - ABG Interpretation ABG results: ABG ABG pH 7.53 pH Units (7.32-7.45) H 07/30/16 00:01 ABG pCO2 77 mmHg (35-45) H* 07/30/16 00:01 ABG pO2 73 mmHg (85-104) L 07/30/16 00:01 ABG O2 Saturation 96 % (95-98) 07/30/16 00:01 PT/INR, D-dimer PT 12.3 Seconds (9.4-12.1) H 07/31/16 01:25 Consult Discharge Plan - Plan Referrals: breana,Loc Stafford MD [Non-Partnered Physician] - 07/31/16 2:15 pm
[2016-08-06] MEDS: Mirtazapine 15 MG TABLET PO SCH (22:12)
[2016-08-07] MEDS: *HR* OxyCODONE Immed Rel 5 MG TABLET PO SCH ×3 (00:26→17:36)
[2016-08-07] MEDS: MethylPREDNISolone 40 MG/ML VIAL IVP SCH (01:18)
[2016-08-07] MEDS: Levalbuterol Neb 1.25 MG/3 ML IH SCH ×4 (03:53→15:56)
[2016-08-07] MEDS: Ipratropium Neb 0.5 MG NEBULIZER IH SCH ×4 (03:53→15:56)
[2016-08-07] MEDS: *HR* Enoxaparin 40 MG/0.4 ML SYRINGE SQ SCH (06:03)
[2016-08-07] MEDS: Budesonide/Formoterol 160/4.5 MDI IH SCH (08:00)
[2016-08-07 08:27] LABS: Basophils % 0.1 %; Hematocrit 34.9 % (35.3-44.9); Immature Granulocytes % 0.5 % (0-4); Immature Platelets 9.4 % (1.1-6.1); Lymphocytes # 0.3 K/mcL (0.6-4.6); Lymphocytes % 2.5 %; Mean Corpuscular HGB Conc 31.5 g/dL (31.6-35.5); Mean Corpuscular Hemoglobin 29.7 pg (28.0-33.3); Mean Corpuscular Volume 94.3 fL (83.0-100.0); Mean Platelet Volume 11.4 fL (9.4-12.4); Monocytes # 0.4 K/mcL (0.0-1.3); Monocytes % 3.7 %; Neutrophils # 10.2 K/mcL (1.6-8.9); Platelet Count 176 K/mcL (140-400); Red Cell Distribution Width 13.8 % (11.5-14.5); Segmented Neutrophils % 93.2 %
[2016-08-07 08:38] LABS: BUN/Creatinine Ratio 33 (6-26); Blood Urea Nitrogen 26 mg/dL (7-20); Calcium 8.6 mg/dL (8.6-10.8); Chloride 90 mEq/L (98-109); Glucose 197 mg/dL (70-99); Osmolality,Calculated 296 (280-300); Potassium 3.7 mEq/L (3.5-4.5); Sodium 138 mEq/L (136-145); eGFR For African Americans > 60 (> 60); eGFR For Non-African Americans > 60 (> 60)
[2016-08-07] MEDS: Magnesium Oxide 400 MG TABLET PO SCH (08:43)
[2016-08-07] MEDS: Furosemide 40 MG TABLET PO SCH (08:43)
[2016-08-07] MEDS: Diltiazem CD (24hr) 120 MG CAPSULE PO SCH (08:43)
[2016-08-07] MEDS: Lactobacillus 1 EACH CAP.SPRINK PO SCH (08:44)
[2016-08-07] MEDS: Aspirin 81 MG TAB.CHEW PO SCH (08:44)
[2016-08-07] MEDS: Thiamine (B-1) 100 MG TABLET PO SCH (08:45)
[2016-08-07] MEDS: Insulin LISPRO 300 UNITS/3 ML VIAL SQ SCH ×3 (08:49→17:31)
[2016-08-07 08:54] LABS: Carbon Dioxide 40 mEq/L (19-29)
[2016-08-07] MEDS: Nystatin POWDER 30 GM BOTTLE TP SCH (09:00)
--- NOTE | 2016-08-07 09:15 | Discharge Summary ---
Date of Encounter: 08/07/16 Time of Encounter: 09:11 - Discharge Diagnosis (1) Acute and chronic respiratory failure with hypoxia Priority: Primary Status: Acute (2) CAD (coronary artery disease) of artery bypass graft Priority: Secondary Status: Chronic Qualifiers: [place] vs. transplanted heart: [place] heart Associated angina: without angina Qualified Code(s): I25.810 - Atherosclerosis of coronary artery bypass graft(s) without angina pectoris (3) Hypertension Priority: Secondary Status: Chronic Qualifiers: Hypertension type: essential hypertension Qualified Code(s): I10 - Essential (primary) hypertension (4) CHF (congestive heart failure) Priority: Secondary Status: Acute Qualifiers: Congestive heart failure type: diastolic Congestive heart failure chronicity: acute on chronic Qualified Code(s): I50.33 - Acute on chronic diastolic (congestive) heart failure - Discharge Medications Prescriptions: Carvedilol [Coreg] 25 mg PO BIDWM #60 tablet Cefdinir [Omnicef] 300 mg PO BID #14 capsule Diltiazem CD (24hr) [Cardizem CD] 120 mg PO DAILY #30 cap.er.24h Furosemide [Lasix] 20 mg PO DAILY #30 tablet PredniSONE 10 mg PO DAILY #65 tablet Sulfamethoxazole/Trimeth DS [Bactrim Ds] 1 each PO BID #14 tablet Home Medications: Amlodipine [Norvasc] 5 mg PO DAILY 10/11/15 [History] Aspirin 81 mg PO DAILY 10/11/15 [History] Buspirone HCl [Buspar] 10 mg PO BID 10/11/15 [History] Gabapentin [Neurontin] 600 mg PO TID 10/11/15 [History] Isosorbide MONOnitrate (24 HR) [Imdur] 60 mg PO QAM 10/11/15 [History] Losartan Potassium [Cozaar] 100 mg PO DAILY 10/11/15 [History] Multivitamin [One Daily Essential] 1 each PO QAM 10/11/15 [History] Oxybutynin Chloride [Ditropan Xl] 10 mg PO DAILY 10/11/15 [History] Paroxetine [Paxil] 20 mg PO HS 10/11/15 [History] Roflumilast [Daliresp] 500 mcg PO DAILY 10/11/15 [History] Simvastatin [Zocor] 10 mg PO HS 10/11/15 [History] Tiotropium [Spiriva] 18 mcg IH BID 10/11/15 [History] Benzonatate 100 mg PO TID 07/24/16 [History] Calcium Carbonate/Vitamin D3 [Oyster Shell Calcium-Vit D Tab] 1 each PO DAILY [History] Docusate Sodium [Dok] 200 mg PO DAILY PRN 07/24/16 [History] Ferrous Sulfate [Iron] 325 mg PO DAILY 07/24/16 [History] Fluticasone/Salmeterol [Advair Hfa 230-21 Mcg Inhaler] 2 puff IH BID 07/24/16 [ History] Guaifenesin [Mucinex] 600 mg PO BID 07/24/16 [History] Ipratropium/Albuterol Neb [Duoneb] 3 ml IH Q4H 07/24/16 [History] Levalbuterol [Xopenex INH] 2 puff IH QID PRN 07/24/16 [History] Loperamide [Imodium] 2 mg PO DAILY PRN 07/24/16 [History] MethylPREDNISolone [Solu-MEDROL] 125 mg IV DAILY 07/24/16 [History] Omeprazole [PriLOSEC] 20 mg PO DAILY 07/24/16 [History] Potassium Chloride [K-Tab ER] 20 meq PO BID 07/24/16 [History] Sennosides [Senna] 8.6 mg PO DAILY PRN 07/24/16 [History] Carvedilol [Coreg] 25 mg PO BIDWM #60 tablet 08/07/16 [Rx] Cefdinir [Omnicef] 300 mg PO BID #14 capsule 08/07/16 [Rx] Diltiazem CD (24hr) [Cardizem CD] 120 mg PO DAILY #30 cap.er.24h 08/07/16 [Rx] Furosemide [Lasix] 20 mg PO DAILY #30 tablet 08/07/16 [Rx] PredniSONE 10 mg PO DAILY #65 tablet 08/07/16 [Rx] Sulfamethoxazole/Trimeth DS [Bactrim Ds] 1 each PO BID #14 tablet 08/07/16 [Rx] Allergies/Adverse Reactions: Allergies acetaminophen [From Vicodin] Allergy (Verified 07/24/16 10:16) Hives codeine Allergy (Verified 07/24/16 10:16) Nausea hydrocodone [From Vicodin] Allergy (Verified 07/24/16 10:16) Hives Oxycodone [From Percocet] Allergy (Verified 07/24/16 10:16) Gastrointestinal Upset propoxyphene [From Darvocet-N] Allergy (Verified 07/24/16 10:16) Gastrointestinal Upset Date of admission: 07/24/16 05:47 Primary care physician: Tommie Quintana MD Consults: 07/24/16 06:50 Consult to Crack Off Person [CONS] Routine Reason for SW Consult: patient from ECF 07/24/16 11:59 Consult to Pulmonology [CONS] Routine Consulting Provider: [facility] [place] Reason for Consult: Acute Resp Failure Call Completed: Yes 07/25/16 15:18 Consult to Nutrition [CONS] Routine Comment: Consulting Provider: NUTRITION Reason for Dietary Consult: TF Start and Manage 07/27/16 06:21 Consult to Speech Therapy [CONS] Routine Comment: Evaluate, develop and implement POC Reason for Consult: Swallow evaluation and plan Call Completed: No 07/29/16 11:55 Consult to Cardiology [CONS] Routine Comment: Consulting Provider: Cardiology [place] Reason for Consult: please evaluate for new onset Atrial- fib with RVR. thank you Call Completed: Yes 07/31/16 12:36 Consult to Palliative Care [CONS] Routine Comment: Discussed with Elena DIALLO, severe COPD Consulting Provider: [facility] [place] 08/03/16 08:20 Consult to Respiratory Therapy [CONS] Routine Reason for Consult: please give acapella therapy after the nebulization tx . thank you Call Completed: No Discharging clinician: Sangeetha Coppola Anticipated date of discharge: 08/07/16 - Patient Status Disposition: Transfer SNF Condition: Fair Functional capacity at discharge: bed bound Overall status at discharge: patient is back to baseline - Discharge Instructions Follow Up With: Loc James MD [Non-Partnered Physician] - Don Howe MD [Partnered Physician] - 09/04/16 11:30 am - Diet and Activity Activity: as per physical therapy Diet: other (honey thickened liquids) Interval History: 65-year-old female with history of severe COPD, history of requiring mechanical ventilation [facility] completing antibiotics for healthcare associated pneumonia. Patient had a sudden onset of coughing, wheezing and shortness of breath was treated with steroids and respiratory therapy in the emergency apparent. With failure of improvement of breathing she was placed on BiPAP and admitted to the general medical floor. While on BiPAP her PCO2 continued to rise from 85-93, The patient became more lethargic and with concerns for decompensation she was transferred to the ICU and was evantually intubated. she was started on IV emperical antibiotics , steroids and nebs. Nasal MRSA swab negative, influenza screen negative. patient tolerated CPAP trial plans for extubation and was extubated adn Transferred from ICU 07/27 to the medical floors. while in medical floors, the course was complicated by episodes of acute pulmonary edema and MAT. Cardiology was consulted, she was transiently on Cardizem drip, however was switched to oral, heart rate has been stable ever since. Patient has been very noncompliant with medications and nursing staff because she just wanted to leave. she continued to reuire high flow oxygen, CT chest was done that showed LLL collapse with multifocal pneumonia sputum cx grew MRSA and E.coli antibiotics was changed as per culture sensitivity and the steroids were tapered gradually she does have chronic hypoxia and hypercapnia from the advanced COPD and the general debilitation and the fact that she has been bedbound and does not want to participate with rehab. However she has clinically improved with IV antibiotics, steroids, chest physiotherapy, incentive spirometry and breathing treatments. The oxygen requirement has decreased to 3-4 L and is able to maintain her sats 88-90% The leukocytosis has improved and patient is able to tolerate food, denies any chest pain or shortness of breath at this time. She is being discharged in stable condition to [facility] and will follow-up with pulmonary as outpatient, will possibly need a repeat scan to follow the multifocal pneumonia and the collapse of the lung. Hospital course: Ms. Dubon is a 65 year old female Time spent discussing smoking cessation with patient: more than 10 minutes - Time Spent with Patient Total time spent providing and/or coordinating discharge services: Greater than 30 minutes - Constitutional Vitals: Temp Pulse Resp BP Pulse Ox 98.3 F 75 18 139/91 94 L 08/07/16 07:00 08/07/16 07:00 08/07/16 08:05 08/07/16 07:00 08/07/16 08:05 General appearance: Present: A&O X 3 Exam: Eyes: nonicteric ENT: oropharynx moist Neck: supple, other (Trachea midline) Auscultation: bilateral: no wheezing or creptns Cardiovascular: regular rate and rhythm Gastrointestinal: normoactive bowel sounds, soft, non-tender, non-distended Integumentary: normal Extremities: no cyanosis, no edema, no clubbing
--- NOTE | 2016-08-07 09:27 | Physician Discharge Referral ---
ExtendedCare Referral Info Transfer To: [facility] Provider in Charge: thalia rosenthal Institutional Level of Care: Intermediate - MR - Diagnosis (1) Acute and chronic respiratory failure with hypoxia Status: Acute (2) CAD (coronary artery disease) of artery bypass graft Status: Chronic (3) Hypertension Status: Chronic (4) CHF (congestive heart failure) Status: Acute - Transfer Medications Prescriptions: Carvedilol [Coreg] 25 mg PO BIDWM #60 tablet Cefdinir [Omnicef] 300 mg PO BID #14 capsule Diltiazem CD (24hr) [Cardizem CD] 120 mg PO DAILY #30 cap.er.24h Furosemide [Lasix] 20 mg PO DAILY #30 tablet PredniSONE 10 mg PO DAILY #65 tablet Sulfamethoxazole/Trimeth DS [Bactrim Ds] 1 each PO BID #14 tablet Home Medications: Amlodipine [Norvasc] 5 mg PO DAILY 10/11/15 [History] Aspirin 81 mg PO DAILY 10/11/15 [History] Buspirone HCl [Buspar] 10 mg PO BID 10/11/15 [History] Gabapentin [Neurontin] 600 mg PO TID 10/11/15 [History] Isosorbide MONOnitrate (24 HR) [Imdur] 60 mg PO QAM 10/11/15 [History] Losartan Potassium [Cozaar] 100 mg PO DAILY 10/11/15 [History] Multivitamin [One Daily Essential] 1 each PO QAM 10/11/15 [History] Oxybutynin Chloride [Ditropan Xl] 10 mg PO DAILY 10/11/15 [History] Paroxetine [Paxil] 20 mg PO HS 10/11/15 [History] Roflumilast [Daliresp] 500 mcg PO DAILY 10/11/15 [History] Simvastatin [Zocor] 10 mg PO HS 10/11/15 [History] Tiotropium [Spiriva] 18 mcg IH BID 10/11/15 [History] Benzonatate 100 mg PO TID 07/24/16 [History] Calcium Carbonate/Vitamin D3 [Oyster Shell Calcium-Vit D Tab] 1 each PO DAILY [History] Docusate Sodium [Dok] 200 mg PO DAILY PRN 07/24/16 [History] Ferrous Sulfate [Iron] 325 mg PO DAILY 07/24/16 [History] Fluticasone/Salmeterol [Advair Hfa 230-21 Mcg Inhaler] 2 puff IH BID 07/24/16 [ History] Guaifenesin [Mucinex] 600 mg PO BID 07/24/16 [History] Ipratropium/Albuterol Neb [Duoneb] 3 ml IH Q4H 07/24/16 [History] Levalbuterol [Xopenex INH] 2 puff IH QID PRN 07/24/16 [History] Loperamide [Imodium] 2 mg PO DAILY PRN 07/24/16 [History] MethylPREDNISolone [Solu-MEDROL] 125 mg IV DAILY 07/24/16 [History] Omeprazole [PriLOSEC] 20 mg PO DAILY 07/24/16 [History] Potassium Chloride [K-Tab ER] 20 meq PO BID 07/24/16 [History] Sennosides [Senna] 8.6 mg PO DAILY PRN 07/24/16 [History] Carvedilol [Coreg] 25 mg PO BIDWM #60 tablet 08/07/16 [Rx] Cefdinir [Omnicef] 300 mg PO BID #14 capsule 08/07/16 [Rx] Diltiazem CD (24hr) [Cardizem CD] 120 mg PO DAILY #30 cap.er.24h 08/07/16 [Rx] Furosemide [Lasix] 20 mg PO DAILY #30 tablet 08/07/16 [Rx] PredniSONE 10 mg PO DAILY #65 tablet 08/07/16 [Rx] Sulfamethoxazole/Trimeth DS [Bactrim Ds] 1 each PO BID #14 tablet 08/07/16 [Rx] Allergies/Adverse Reactions: Allergies acetaminophen [From Vicodin] Allergy (Verified 07/24/16 10:16) Hives codeine Allergy (Verified 07/24/16 10:16) Nausea hydrocodone [From Vicodin] Allergy (Verified 07/24/16 10:16) Hives Oxycodone [From Percocet] Allergy (Verified 07/24/16 10:16) Gastrointestinal Upset propoxyphene [From Darvocet-N] Allergy (Verified 07/24/16 10:16) Gastrointestinal Upset - Respiratory Orders Oxygen / L per min (4l) Smoking Cessation: Smoking cessation has been advised. For more information, call the [place] Tobacco Quit Line at 7-711-GTAK-NOW. - Advance Directives Code Status: Full Code - Mobility Orders Chair - Rehabiliation Orders Rehab Potential: Fair Rehab Orders: Evaluation for Physical Therapy, Evaluation for Occupational Therapy Other: chest physiotherapy - Diet Orders Pureed (honey thickened liquids) CERTIFICATION: I certify that the transfer of the above named patient to an Extended Care Facility is necessary for the continuing treatment of the diagnosis listed. The above information is true and accurate reflection of patient's current condition. Confidential - Redisclosure prohibited without a patient's written consent.
[2016-08-07] MEDS ORDERED: MethylPREDNISolone 40 MG/ML VIAL IVP SCH (13:00)
[2016-08-07 14:44] VITALS: BP 98/75
[2016-08-07] MEDS ORDERED: Aminoglycoside Consult 1 EACH MC ONE (17:55)
== END 2016-08-07 17:56 | DRG 208 ==
LOC: 3BNU 00:46 → EMEROO 00:46 → 2NENU 05:44 → SUATTDRO 05:47 → 2NENU 06:05 → ICNU 12:11 → 3ANU 07-28 01:35
PROVIDERS: ADMIT Pediatrics; ATTEND Internal Medicine Endocrinology, Diabetes & Metabolism